=== PATIENT | male | born 1965 | race African-American/Black ===

== ENCOUNTER 2017-01-22 13:40 | Outpatient (CLI) | payer MEDICARE ==
--- NOTE | 2017-01-22 19:54 | MRI ---
MRI CERVICAL SPINE WITHOUT IV CONTRAST: Date: 01-22-17 History: Cervical radiculopathy. FINDINGS: There is minimal cerebellar atrophia. There is heterogeneity of the bone marrow. There is suggestion of endplate degenerative changes at t he C4-5 level. C2-3: No disc bulge or disc herniation. Central spinal canal and neural foramina are patent. C3-4: There is a mild broad based disc osteophyte complex present. This results in narrowing of the central spinal canal with flattening of the anterior aspect of the spinal cord. Neural foramina are patent. C4-5: There is loss of intervertebral disc height. There is broad based disc osteophyte complex with central disc protrusion. This results in severe narrowing of the central spinal canal. In addition, there is increased signal intensity seen within the spinal cord which could be related to either mi ld amount of cord edema or myelomalacia. There may be some thinning of the spinal cord in this regio n. It is difficult to determine due to the severe narrowing of the central spinal canal and severe c ompression of the spinal cord at this level. There is mild right and mild to moderate left sided murphy ral foraminal narrowing. l C5-6: There is a broad based disc bulge with a central disc protrusion. This again results in severe narrowing of the central spinal canal with significant flattening of the spinal cord. There is subt le increased T2 weight signal intensity in the spinal cord at this level as well which also could be related to myelomalacia or mild cord edema. Right neural foramen is patent, but there does appear t o be mild to moderate left sided neural foraminal narrowing. C6-7: There is mild broad based disc osteophyte complex. There is mild generalized narrowing of the central spinal canal with mild flattening aspect of the spinal cord. Neural foramina are patent. C7-T1: No disc bulge or disc herniation. Central spinal canal and neural foraminal are patent. IMPRESSION: 1. Multilevel degenerative changes with findings greatest at the C4-5 and C5-6 levels where there ar e broad based disc bulges and central disc protrusions, greater at the C4-5 level. There is severe n arrowing of the central spinal canal at these levels with severe flattening of the spinal cord. Ther e is increased T2 weighted signal intensity within the spinal cord at these levels which may be rela blossom to mild cord edema and/or myelomalacia. 2. Neural foraminal narrowing greatest at the C4-5 level. POS: [facility]
== END 2017-01-22 13:41 | disposition home or self-care (01) ==
LOC: TBSIIMAG 13:40
PROVIDERS: ATTEND Neurological Surgery
DX: M50.121 Cervical disc disorder at C4-C5 level with radiculopathy (principal); M47.812 Spondylosis without myelopathy or radiculopathy, cervical region; M48.02 Spinal stenosis, cervical region
CPT/HCPCS: 72141

== ENCOUNTER 2017-02-28 13:33 | Outpatient (CLI) | payer MEDICARE ==
[2017-02-28 14:10] LABS: Hematocrit 33.7 % (42.0-52.0); Mean Platelet Volume 7.8 fL (7.4-10.4); Red Blood Cell (RBC) Count 3.43 mill/uL (4.70-6.10); White Blood Cell (WBC) Count 5.5 thou/uL (4.8-10.8)
[2017-02-28 14:30] LABS: Anion Gap 12 mmol/L (10-20); BUN (Urea Nitrogen) 55 mg/dL (8.4-25.7); Calc. Creatinine Clearance 0 mL/min (70-130); Calcium 8.8 mg/dL (7.8-10.44); Carbon Dioxide 30 mmol/L (22-29); Chloride 103 mmol/L (98-107); Estimated GFR-MDRD 22
--- NOTE | 2017-03-04 08:44 | EKG ---
Test Reason : Blood Pressure : / mmHG Vent. Rate : 085 BPM Atrial Rate : 085 BPM P-R Int : 164 ms QRS Dur : 100 ms QT Int : 374 ms P-R-T Axes : 026 057 022 degrees QTc Int : 445 ms Normal sinus rhythm Normal ECG When compared with ECG of 20-SEP-2015 13:16, Nonspecific T wave abnormality now evident in Inferior leads Confirmed by Dinh MANRIQUE ([id number]) on 03/04/2017 8:43:56 AM Referred By: JOSE Confirmed By:Dinh MANRIQUE
== END 2017-02-28 13:34 | disposition home or self-care (01) ==
LOC: LABBT 13:33
PROVIDERS: ATTEND Neurological Surgery
DX: Z01.818 Encounter for other preprocedural examination (principal); M47.892 Other spondylosis, cervical region
CPT/HCPCS: 80048; 85027; 93005; 93010

== ENCOUNTER 2017-03-07 07:57 | Day surgery (SDC) | payer MEDICARE ==
[2017-02-28 14:25] VITALS: BMI 39.4
--- NOTE | 2017-03-06 16:24 | HP ---
HISTORY OF PRESENT ILLNESS: Mr. Morales is a 51-year-old man who presents for evaluation of mostly bilateral S1 radiculopathies. MRI from [facility] reveals severe central canal stenosis at L4-L5. Nicole mendez also presents for constellation of different upper extremity symptoms with polydermatomal radiating symptoms and numbness in his hands and he has an EMG NCV that shows unspecified polyneuropathies of both sensory and motor neurons of the upper extremities bilaterally and an MRI from [facility] reveal s severe central canal stenosis from C4-C6 with signal change in the cord at these locations and he i s here to discuss any possible recommendations going forward. PAST MEDICAL HISTORY: Significant for diabetes, gout, neuropathy, hypertension, BPH, back and neck p roblems. CURRENT MEDICATIONS: Potassium, amlodipine, gabapentin, allopurinol, glipizide, metolazone, hydrocod one, probenecid, colchicine, carvedilol, magnesium, isosorbide mononitrate, Lipitor, hydralazine, and tamsulosin. ALLERGIES: No known drug allergies. PAST SURGICAL HISTORY: None. PHYSICAL EXAMINATION: The patient is alert and oriented x3. Gait is extraordinarily slow using a wa lker. He is unable to perform rapid finger movements in either hand. He has a 3/5 rehabilitation center manager strength tiffanie aterally. Upper extremity motor exam is about 4/5 in all movements of the upper extremities, some ma y be secondary to poor effort. Lower extremities are 4+/5 in all movements. Sensory disturbance in all surfaces of the hands, volar and dorsal up to mid forearm bilaterally. Same to the feet where th ey go up to just above the ankles bilaterally. Reflexes are equal and intact bilaterally at the judy ps and patella. ASSESSMENT: Cervical myelopathy. PLAN: Dr. Britt met with the patient, reviewed imaging and ultimately advocated for C4 through C6 AC DF. He explained to the patient the risks, benefits, and alternatives to the procedure. The patient expressed understanding and would like to move forward with surgery as discussed. I do believe the patient is mentally competent and capable of making medical decisions for himself. We will move forw yan with surgery as planned.
[2017-03-07] MEDS ORDERED: CEFAZOLIN/Water 2 GM/20 ML SYRINGE ONE ×2 (08:12→15:18)
[2017-03-07] MEDS ORDERED: Albuterol Sulfate 1.25 MG/3 ML NEB ONE (08:43)
[2017-03-07] MEDS ORDERED: Albuterol Sulfate 2.5 mg/3 ml Neb ONE (08:46)
[2017-03-07] MEDS ORDERED: Thrombin 5000 UNITS/5 ML VIAL ONE (09:20)
[2017-03-07] MEDS ORDERED: Midazolam HCl 2 mg/2 ml Vial ONE (09:38)
[2017-03-07] MEDS ORDERED: Fentanyl 250 MCG/5 ML VIAL ONE (09:38)
--- NOTE | 2017-03-07 12:28 | OP ---
DATE OF PROCEDURE: 03/07/2017 SURGEON: Jarrod Britt M.D. GALLEY BOY: Ganesh Miranda PA-C. INDICATION: Prevent neurologic decline. DIAGNOSIS: Cervical spondylitic myelopathy. PROCEDURE: Anterior cervical discectomy and fusion C4-C6. ANESTHESIA: General. PROCEDURE IN DETAIL: The patient was brought to the operating room and placed under general anesthes ia. He was placed on the table in a supine position. A transverse incision was planned over the lat eral aspect of the neck on the right. After prepping and draping and after an appropriate operative pause, the incision was created. The underlying platysma muscle was identified and incised. A blunt tissue plane anterior to the sternocleidomastoid muscle was used to gain access to the prevertebral space. Self-retaining retractors were placed in the wound for optimal exposure. After confirming th e appropriate level, an annulotomy was performed in the C4-5 disk space. All disk material as well a s anterior and posterior osteophytes were removed under slight distraction. After complete decompres andrey of that segment a 7 mm lordotic PEEK cage packed with allograft and autograft material was place d within the interbody space. We then redirected our attention to the level above at C5-6 where an a nnulotomy was performed. All disk material as well as anterior and posterior osteophytes were remove d. After complete decompression, a 6 mm lordotic PEEK cage packed with allograft and autograft mater ial was placed. An anterior cervical plate was then fashioned to the front of the spine and secured with screws. Midline and lateral structures were then inspected and found to be free from significan t trauma. The wound was irrigated. Hemostasis was maintained throughout. The wound was then closed in anatomic layers and a pressure dressing was applied. There were no known procedural complication s.
[2017-03-07] MEDS ORDERED: Fentanyl 100 MCG/2 ML VIAL ONE (12:47)
[2017-03-07] MEDS ORDERED: Tamsulosin HCl 0.4 MG CAP ONE (13:07)
[2017-03-07] MEDS ORDERED: Acetaminophen/Codeine 30-300mg Tablet ONE (13:55)
[2017-03-07] MEDS ORDERED: Dexamethasone 20 MG/5 ML VIAL ONE (15:31)
[2017-03-07] MEDS ORDERED: PHENYLEPHRINE-NS 100 MCG/ML 10 ML SYRINGE ONE (15:31)
[2017-03-07] MEDS ORDERED: ePHEDrine/0.9% NaCl/PF SYRINGE 50 mg/10 ml ONE (15:31)
[2017-03-07] MEDS ORDERED: Propofol 200 MG/20 ML VIAL ONE (15:31)
[2017-03-07] MEDS ORDERED: Ondansetron HCl/PF 4 MG/2 ML Vial ONE (15:31)
[2017-03-07] MEDS ORDERED: Glycopyrrolate 0.2 MG/ML 5 ML SYRINGE ONE (15:31)
[2017-03-07] MEDS ORDERED: Lidocaine 1% PF 5 ML VIAL ONE (15:31)
== END 2017-03-07 15:47 | disposition home or self-care (01) ==
LOC: SDC 07:57
PROVIDERS: ATTEND Neurological Surgery
PROC: 0RG20A0 Fusion of 2 or more Cervical Vertebral Joints with Interbody Fusion Device, Anterior Approach, Anterior Column, Open Approach (ICD-10-PCS; principal; 2017-03-07)
PROC: 0RB30ZZ Excision of Cervical Vertebral Disc, Open Approach (ICD-10-PCS; 2017-03-07)
DX: M47.12 Other spondylosis with myelopathy, cervical region (principal); M25.78 Osteophyte, vertebrae; M10.9 Gout, unspecified; E11.40 Type 2 diabetes mellitus with diabetic neuropathy, unspecified; I10 Essential (primary) hypertension; N40.0 Benign prostatic hyperplasia without lower urinary tract symptoms; Z79.84 Long term (current) use of oral hypoglycemic drugs; Z79.82 Long term (current) use of aspirin; Z79.899 Other long term (current) drug therapy; Z98.890 Other specified postprocedural states
CPT/HCPCS: 20930; 20936; 22551; 22552; 22845; 22853 ×2; 76001; 96374; C1713; J1100; J2001; J2250; J2405; J2704; J3010; J7611

== ENCOUNTER 2017-04-30 19:48 | Emergency (ER) | payer MEDICARE, SELFPAY ==
[2017-04-30] MEDS ORDERED: Ketorolac Tromethamine 30 MG/ML VIAL ONE (22:05)
[2017-04-30] MEDS ORDERED: predniSONE 20 MG TAB ONE ×2 (22:05→22:06)
[2017-04-30] MEDS ORDERED: Colchicine 0.6 MG TAB ONE (22:05)
== END 2017-04-30 23:13 | disposition home or self-care (01) ==
LOC: ERS 19:48
DX: M10.9 Gout, unspecified (principal); I25.10 Atherosclerotic heart disease of native coronary artery without angina pectoris; E11.22 Type 2 diabetes mellitus with diabetic chronic kidney disease; I13.2 Hypertensive heart and chronic kidney disease with heart failure and with stage 5 chronic kidney disease, or end stage renal disease; I50.9 Heart failure, unspecified; N18.6 End stage renal disease; E78.5 Hyperlipidemia, unspecified; J44.9 Chronic obstructive pulmonary disease, unspecified; Z87.891 Personal history of nicotine dependence
CPT/HCPCS: 96372; J1885; J7506

== ENCOUNTER 2017-05-19 22:51 | Emergency (ER) | payer MEDICARE ==
--- NOTE | 2017-05-19 23:36 | ULT ---
RIGHT LOWER EXTREMITY VENOUS DUPLEX EXAM: 05/19/17 HISTORY: Right leg pain and swelling. Real time color doppler evaluation of the right lower extremity was performed from calf. This include s evaluation of the common femoral, superficial and profunda femoral, saphenous, popliteal, and trifu rcation veins. This shows a patent deep venous system. There is normal compressibility and augmentat ion. There is no evidence of DVT. IMPRESSION: No evidence of DVT of the right lower extremity. POS: [facility]
== END 2017-05-20 00:15 | disposition home or self-care (01) ==
LOC: ERS 22:51
DX: S80.11XA Contusion of right lower leg, initial encounter (principal); I25.10 Atherosclerotic heart disease of native coronary artery without angina pectoris; E11.22 Type 2 diabetes mellitus with diabetic chronic kidney disease; I13.2 Hypertensive heart and chronic kidney disease with heart failure and with stage 5 chronic kidney disease, or end stage renal disease; I50.9 Heart failure, unspecified; N18.6 End stage renal disease; E78.5 Hyperlipidemia, unspecified; Z87.891 Personal history of nicotine dependence; Z79.899 Other long term (current) drug therapy; Z79.84 Long term (current) use of oral hypoglycemic drugs; Z79.82 Long term (current) use of aspirin; W22.03XA Walked into furniture, initial encounter; M79.604 Pain in right leg

== ENCOUNTER 2017-12-05 13:18 | Outpatient (CLI) | payer MEDICARE ==
--- NOTE | 2017-12-05 16:05 | MRI ---
MRI OF LUMBAR SPINE WITHOUT CONTRAST: Date: 12-05-17 Comparison: 08-03-16 History: Neck and back surgery in the past, chronic neck pain and back pain. Technique: Multiplanar, multisequence MR imaging of the lumbar spine is provided without contrast med ia. FINDINGS: Body habitus and motion artifact limits detailed assessment on provided STIR imaging. The STIR imagin g demonstrates no focal area of suspicious osseous marrow edema. Assuming five lumbar type vertebral bodies, conus medullaris terminates in the T12-L1 region. The patient appears status post lumbar spine surgery at the L4-5 level with probable bilateral nuria ctomy. There is increased STIR signal within the posterior paraspinal soft tissues at this level. Thi s surgery has occurred since the prior 08-03-16 examination. Post-surgical changes are not optimally a ssessed without contrast media. T12-L1: Intervertebral disc height and signal intensity appears within normal limits with no signific ant central canal or neural foraminal stenosis. L1-2: Bilateral facet hypertrophy. Intervertebral disc height and signal intensity is within normal l imits. No significant central canal or neural foraminal stenosis. L2-3: There is mild disc space narrowing. There is mild disc bulge. There is bilateral facet hypertro phy. There is mild central canal stenosis and mild bilateral neural foraminal stenosis, left greater than right. L3-4: Mild bilateral facet hypertrophy. Intervertebral disc height and signal intensity appears withi n normal limits. Mild central canal stenosis, mild bilateral neural foraminal stenosis, left greater than right. L4-5: There is minimal anterolisthesis of L4 on L5 measuring in the 3-4 mm range. There is disc space narrowing, disc desiccation, and mild disc bulge. There is bilateral prominent facet hypertrophy. Th ere is moderate central canal stenosis. There is moderate bilateral neural foraminal stenosis, right greater than left. L5-S1: Mild disc bulge with mild central canal stenosis. Bilateral facet hypertrophy, left greater th an right. Mild bilateral neural foraminal stenosis. Please note that detailed assessment of the axial T2 weighted imaging is limited on the basis of body habitus. Imaged retroperitoneal structures demonstrate no acute findings. The left kidney is nonvisualized. IMPRESSION: 1. Multilevel post-operative/degenerative change within the lumbar spine as described above. Findings are most significant at the L4-5 level. The lack of contrast media limits assessment of the post-ope rative spine. POS: [facility]
--- NOTE | 2017-12-05 16:16 | MRI ---
MRI OF THE CERVICAL SPINE 12/05/17 COMPARISON: 08/03/16 HISTORY: Chronic pain with bilateral upper extremity radiculopathy and prior cervical spine surgery. TECHNIQUE: Multiplanar and multisequence MR imaging of the cervical spine is provided without contrast. FINDINGS: There has been interval anterior discectomy and fusion at the C4-5/C5-6 level. There is associated coburn rdware artifact. Sagittal STIR imaging demonstrates no focal area of osseous marrow edema. There is no significant ant erolisthesis or retrolisthesis noted. C2-3: Mild disc space narrowing and disc desiccation. Mild bilateral facet hypertrophy with uncoverte bral osteophyte formation. No significant central canal or neural foraminal stenosis. C3-4: Disc space narrowing and disc desiccation with mild disc bulge and mild central canal stenosis. Mild bilateral facet hypertrophy, and uncovertebral osteophyte formation with mild bilateral neural foraminal stenosis. C4-5: There is disc desiccation and disc space narrowing. There is bilateral facet and uncovertebral osteophyte formation. There is mild central canal stenosis, improved since prior surgery. There is bi lateral facet and uncovertebral osteophyte formation. Mild to moderate bilateral neural foraminal osmany nosis suspected. C5-6: Disc space narrowing and disc desiccation noted with mild central canal stenosis. Bilateral fac et and uncovertebral osteophyte formation with mild/moderate bilateral neural foraminal stenosis, lef t greater than right. C6-7: Disc desiccation and mild disc bulge with mild central canal stenosis. Facet and uncovertebral osteophyte formation noted bilaterally with mild bilateral neural foraminal stenosis. C7-T1: No significant central canal or neural foraminal stenosis. No prevertebral soft tissue abnormality noted. There is a focal area of abnormal increased T2 signal within the cervical cord at C4-5 as seen on the prior examination, evidence of stable myelomalacia. No additional focal signal abnormality within th e cervical cord. IMPRESSION: Postoperative and degenerative changes noted within the cervical spine as detailed above. Given posto perative hardware, evaluation at C4-5 and C5-6 is slightly limited. Cervical spine CT myelogram may b e beneficial as clinically warranted. POS: [facility]
== END 2017-12-05 13:19 | disposition home or self-care (01) ==
LOC: SCSMRI 13:18
PROVIDERS: ATTEND Family Medicine
DX: M47.26 Other spondylosis with radiculopathy, lumbar region (principal); M47.22 Other spondylosis with radiculopathy, cervical region; Z98.890 Other specified postprocedural states
CPT/HCPCS: 72141; 72148

== ENCOUNTER 2018-02-15 18:01 | Inpatient (IN) | payer MEDICARE ==
[2018-02-15 18:28] LABS: #Basophils 0.1 thou/uL (0.0-0.2); #Eosinphils 0.2 thou/uL (0.0-0.7); #Lymphocytes 1.7 thou/uL (1.20-3.40); #Monocytes 0.6 thou/uL (0.11-0.59); #Neutrophils 3.3 thou/uL (1.40-6.50); %Basophils 1.3 % (0.0-1.0); %Eosinophils 3.6 % (0.0-10.0); %Lymphocytes 28.4 % (21.0-51.0); %Monocytes 10.7 % (0.0-10.0); Hemoglobin 9.6 g/dL (14.0-18.0); Mean Corpuscular HGB CONC 31.8 g/dL (32.0-36.0); Mean Corpuscular Hemoglobin 31.3 pg (27.0-31.0); Mean Corpuscular Volume 98.4 fL (78.0-98.0); Mean Platelet Volume 8.5 fL (7.4-10.4); Platelet Count 221 thou/uL (130-400); RBC Distribution Width 14.3 % (11.5-14.5); Red Blood Cell (RBC) Count 3.08 mill/uL (4.70-6.10); White Blood Cell (WBC) Count 5.9 thou/uL (4.8-10.8)
[2018-02-15 18:34] LABS: Prothrombin Time 12.7 SEC (12.0-14.7)
[2018-02-15 18:53] LABS: Troponin I 0.028 ng/mL (< 0.028)
[2018-02-15 18:54] LABS: CKMB 17.3 ng/mL (0-6.6)
--- NOTE | 2018-02-15 19:00 | RAD ---
CHEST ONE VIEW: 02/15/18 HISTORY: 52-year-old male with history of chest pain and shortness of breath. Cardiomegaly with mild bilateral vascular congestion. No confluent pneumonia, overt edema, or pleural effusion. IMPRESSION: Cardiomegaly with mild vascular congestion showing little change from prior exam, 01/01/16. POS: [facility]
[2018-02-15 19:04] LABS: ALT (SGPT) 49 U/L (8-55); AST (SGOT) 54 U/L (5-34); Albumin 3.4 g/dL (3.5-5.0); Alkaline Phosphatase 95 U/L (40-150); Anion Gap 16 mmol/L (10-20); BUN (Urea Nitrogen) 60 mg/dL (8.4-25.7); Bilirubin, Total 0.4 mg/dL (0.2-1.2); CK (CPK) 3286 U/L (30-200); Calc. Creatinine Clearance 0 mL/min (70-130); Calcium 7.9 mg/dL (7.8-10.44); Carbon Dioxide 27 mmol/L (22-29); Chloride 102 mmol/L (98-107); Estimated GFR-MDRD 13; Globulin 3.1 g/dL (2.4-3.5); Glucose 207 mg/dL (70-105); Lipase 32 U/L (8-78); Protein, Total 6.5 g/dL (6.0-8.3); Sodium 141 mmol/L (136-145)
[2018-02-15] MEDS ORDERED: Furosemide 40 MG/4 ML VIAL ONE (20:07)
[2018-02-15] MEDS ORDERED: Morphine 2 MG/ML SYRINGE ONE (20:07)
[2018-02-15] MEDS ORDERED: Furosemide 20 MG/2 ML VIAL ONE (20:07)
[2018-02-15 21:46] LABS: Troponin I 0.028 ng/mL (< 0.028)
[2018-02-15] MEDS ORDERED: Ondansetron PF 4 MG/2 ML Vial IVP PRN (22:26)
[2018-02-15] MEDS ORDERED: Ondansetron ODT 4 MG TAB SL PRN (22:26)
[2018-02-15 22:43] VITALS: BMI 46.5
[2018-02-16] MEDS ORDERED: Acetaminophen 650 MG Suppository PR PRN (04:56)
[2018-02-16] MEDS ORDERED: Ondansetron PF 4 MG/2 ML Vial IVP PRN (04:56)
[2018-02-16] MEDS ORDERED: Acetaminophen 325 MG TAB PO PRN (04:56)
[2018-02-16] MEDS ORDERED: Senokot S 8.6-50 MG TAB PO PRN (04:56)
[2018-02-16] MEDS ORDERED: Fluticasone Propionate Nasal Spray 16 gm Bottle NASAL PRN (05:07)
[2018-02-16] MEDS ORDERED: Albuterol Sulfate 2.5 mg/3 ml Neb NEB PRN (05:07)
[2018-02-16] MEDS ORDERED: Ipratropium Bromide 2.5 ml Neb NEB PRN (05:07)
[2018-02-16] MEDS ORDERED: Ipratropium Bromide 0.06% Nasal Inhaler 15ml EA NARE PRN (05:15)
--- NOTE | 2018-02-16 06:13 | HP ---
PRIMARY CARE PROVIDER: Verona Coy MD CHIEF COMPLAINT: Shortness of breath. HISTORY OF PRESENT ILLNESS: Mr. Morales is a pleasant 52-year-old gentleman who was seen at [facility] on 02/16/2018. He reports that he has been having progressively worsening shortness of breath over the last several days. He also reported bilateral lower extremity swelling. He reports taking 80 mg of Lasix and 100 mg of torsemide daily. He reports that the shortness of breath and lower extremity edema are ongoin g. He was sent to the emergency room by his allergist immunologist, Dr. Abreu for evaluation. He denies any chest pain. He denies any fevers or chills. He denies any nausea or vomiting. REVIEW OF SYSTEMS: All other systems reviewed and found to be negative. PAST MEDICAL HISTORY: Coronary artery disease, congestive heart failure, diabetes mellitus type 2, e nd-stage renal disease, dyslipidemia, hypertension, chronic obstructive pulmonary disease, and chroni c back pain. PAST SURGICAL HISTORY: Neck surgery in 02/2017. SOCIAL HISTORY: Patient denies tobacco use, alcohol use or recreational drug use. FAMILY HISTORY: Significant for several family members with coronary artery disease, and chronic kid jovan disease. ALLERGIES: No known drug allergies. CURRENT MEDICATIONS: Ipratropium nebulizers as needed, allopurinol 100 mg daily, Norvasc 10 mg daily , aspirin 325 mg daily, Lipitor 40 mg at bedtime, Coreg 25 mg 2 times a day, vitamin D3 5000 units da angela, Flonase nasal spray as needed, Lasix 80 mg daily, gabapentin 600 mg daily, hydralazine 100 mg 3 times a day, [place] p.r.n., Atrovent nasal spray, Imdur 60 mg 3 times a day, magnesium 250 mg daily, m ultivitamins 1 tablet daily, probenecid/colchicine 0.5/500 mg 2 times a day, stool softener 1 tablet 2 times a day, torsemide 100 mg daily, Symbicort 160/4.5 two puffs 2 times a day and Flomax 0.4 mg at bedtime. PHYSICAL EXAMINATION: GENERAL: Mr. Morales is awake and alert, not in acute distress. VITAL SIGNS: Blood pressure is 141/78, pulse 74, respiratory rate 16, and oxygen saturation 95% on r oom air. He is afebrile. He is morbidly obese, with a BMI of 46.6. EYES: No scleral icterus. No conjunctival pallor. ENT: Moist mucosal membranes, no oropharyngeal erythema or exudates. NECK: Supple, nontender, trachea is midline. RESPIRATORY: Accessory muscles of breathing are not active. Chest wall movements are symmetric bila terally. LUNGS: Clear to auscultation without wheeze, rhonchi or crepitations. CARDIOVASCULAR: S1 and S2 are heard, regular. Peripheral pulses palpable. No carotid bruit, no per icardial rub. ABDOMEN: Soft, nontender, bowel sounds are heard, no hepatomegaly, no splenomegaly. NEUROLOGIC: Cranial nerves II-XII intact. Deep tendon reflexes are 2+. MUSCULOSKELETAL: Power is 5/5 in all 4 extremities. SKIN: No rashes or subcutaneous nodules. LYMPHATIC: No cervical lymphadenopathy. PSYCHIATRIC: Normal mood, normal affect, patient is oriented to person, place, and time. LABORATORY DATA: Mr. Morales's labs and investigations were reviewed. I reviewed his electrocardio gram, which shows normal sinus rhythm, no ST changes to suggest an acute coronary syndrome. I also r eviewed his chest x-ray, which shows mild pulmonary vascular congestion. There are no pulmonary infi ltrates. He has normal white count, macrocytic anemia with hemoglobin 9.6, normal platelet count. I NR 1.0, normal sodium, normal potassium, elevated blood urea nitrogen of 60, elevated creatinine of 5 .51, last known creatinine 5.53 on 02/13/2018 and 4.55 on 01/09/2018, normal calcium, mildly elevated AST of 54, elevated CK level of 3286, normal ALT, normal alkaline phosphatase, normal total bilirubi n, indeterminate troponin I of 0.030, mildly elevated BNP of 423, decreased albumin of 3.4 and normal lipase. ASSESSMENT AND PLAN: Mr. Morales is a pleasant 52-year-old gentleman who was seen at [facility] on 02/16/2018. His problem list includes: 1. End-stage renal disease: Mr. Morales is presenting with end-stage renal disease causing symptom s of volume overload including shortness of breath and lower extremity edema. He will be admitted to the hospital for further management. Plan is to start dialysis. General Surgery Service has been c onsulted. 2. Diabetes mellitus type 2: We will start patient on Accu-Cheks and insulin sliding scale. 3. Benign prostate hypertrophy: We will continue tamsulosin. 4. Dyslipidemia: We will continue statin. Many thanks for allowing me to participate in your patient's care. Please feel free to contact me wi th any questions or concerns. LEVEL OF RISK: High. LEVEL OF COMPLEXITY: High.
[2018-02-16] MEDS: Mometasone/Formoterol 120 PUFF INHALER INH SCH ×2 (06:19→18:59)
[2018-02-16] MEDS ORDERED: Furosemide 100 MG/10 ML VIAL SLOW IVP SCH (10:30)
[2018-02-16] MEDS: HYDROcodone/Acetaminophen 10/325 mg Tablet PO PRN ×2 (10:52→20:51)
[2018-02-16] MEDS: Senokot S 8.6-50 MG TAB PO SCH ×2 (10:52→20:50)
[2018-02-16] MEDS: Gabapentin 300 MG CAP PO SCH (10:53)
[2018-02-16] MEDS: hydrALAZINE 25 MG TAB PO SCH ×3 (10:53→20:50)
[2018-02-16] MEDS: Magnesium Oxide 250 MG TAB PO SCH (10:53)
[2018-02-16] MEDS: Amlodipine 10 MG TAB PO SCH (10:54)
[2018-02-16] MEDS: Multivitamin W/ Minerals 1 TAB PO SCH (10:54)
[2018-02-16] MEDS: Aspirin 325 mg Enteric Coated Tablet PO SCH (10:54)
[2018-02-16] MEDS: Carvedilol 25 MG TAB PO SCH ×2 (10:54→20:52)
[2018-02-16] MEDS: Allopurinol 100 MG TAB PO SCH (10:55)
[2018-02-16] MEDS: Torsemide 100 MG TAB PO SCH (10:57)
[2018-02-16] MEDS: Furosemide 80 MG TAB PO SCH (10:58)
--- NOTE | 2018-02-16 11:36 | CON ---
DATE OF CONSULTATION: 02/16/2018 NEPHROLOGY CONSULTATION REASON FOR CONSULTATION: Elevated creatinine and generalized edema. HISTORY OF PRESENT ILLNESS: This is a 52-year-old gentleman with a past medical history significant for stage 4 chronic kidney disease who presented to the hospital after his creatinine was rising. Hi s creatinine was in 4s and is 5.5 with generalized edema and at least 20 pounds of weight gain. The patient has dyspnea on minimal exertion. The patient was treated with Lasix and Zaroxolyn without an y improvement. PAST MEDICAL HISTORY: Significant for hypertension, congestive heart failure, history of diabetes me llitus, obesity, COPD, neck surgery. FAMILY HISTORY: Negative for ESRD. ALLERGIES: Reviewed. HOME MEDICATIONS: List reviewed. REVIEW OF SYSTEMS: A 14-point review of systems was performed and was negative except for positives noted above. GENERAL: Weakness- HEAD: Headache- NECK: No swelling or lumps. NOSE: No epistaxis or discharge. EYES: No diplopia or pain. RESPIRATORY: Dyspnea- CARDIOVASCULAR: Chest pain- GASTROINTESTINAL: Nausea- /CANS VACUUM TESTER: Hematuria- MUSCULOSKELETAL: No joint pain. NEUROPSYCHIATIC SYSTEMS: No suicidal ideation. No ideation. SKIN: Denies any rash or ulcer. CONSTITUTIONAL: No fever or chills. PHYSICAL EXAMINATION: GENERAL: Patient is awake, alert. VITAL SIGNS: Pulse 85, breathing 16, blood pressure 162/82. HEAD/NECK: Normocephalic. Atraumatic. EYES: EOMI. No deformity. EARS: Clear. No ulcers. NOSE: Intact. No lesions. MOUTH: Clear. No discharge. THROAT: Clear. No exudate. LUNGS: Clear. No crackles. CARDIAC: S1, S2. No rub. ABDOMEN: Benign. BS+. GENITALIA/RECTUM: Gimenez absent. BACK/EXTREMITIES: Edema 0+ Ulcer- NEUROLOGICAL: Alert and motor intact. SKIN: Rash- Bruise- LYMPHATICS: Edema 4+ Ulcer- LABORATORY DATA: Show hemoglobin is 9.6. ASSESSMENT AND PLAN: 1. Stage 6 chronic kidney disease. We will plan hemodialysis after catheter placement. 2. Edema. We will plan dialysis. 3. Anemia, stable, start Epogen. 4. Hypertension, plan ultrafiltration. 5. Medications based on glomerular filtration rate are appropriate.
--- NOTE | 2018-02-16 11:47 | PDOC.PN ---
- Subjective Encounter Start Date: 02/16/18 Encounter Start Time: 09:00 Subjective: no sob or chest pain -: is amb in room - Objective MAR Reviewed: Yes Vital Signs & Weight: Vital Signs (12 hours) Temp Pulse Resp BP BP Pulse Ox 02/16/18 10:54 85 02/16/18 10:53 85 168/82 H 02/16/18 07:42 97.5 F L 85 16 168/82 H 94 L 02/16/18 06:19 84 24 H 96 02/16/18 03:46 97.7 F 74 16 141/78 H 95 Weight Weight 263 lb I&O: 02/15/18 02/16/18 02/17/18 06:59 06:59 06:59 Intake Total 240 Output Total 850 Balance -610 Result Diagrams: 02/15/18 18:14 02/15/18 18:14 Additional Labs: Accuchecks 02/16/18 05:39 POC Glucose 88 Phys Exam - Physical Examination HEENT: PERRLA, moist MMs Neck: no JVD, supple Respiratory: no wheezing, no rales Cardiovascular: RRR, no significant murmur Gastrointestinal: soft, non-tender, positive bowel sounds Musculoskeletal: no edema, pulses present Neurological: non-focal, moves all 4 limbs Psychiatric: normal affect, A&O x 3 Dx/Plan (1) ESRD (end stage renal disease) Code(s): N18.6 - END STAGE RENAL DISEASE Status: Acute (2) Cardiomyopathy Code(s): I42.9 - CARDIOMYOPATHY, UNSPECIFIED Status: Chronic (3) Chronic obstructive lung disease Code(s): J44.9 - CHRONIC OBSTRUCTIVE PULMONARY DISEASE, UNSPECIFIED Status: Chronic (4) Diabetes mellitus type 2 Code(s): E11.9 - TYPE 2 DIABETES MELLITUS WITHOUT COMPLICATIONS Status: Chronic (5) Diastolic heart failure Code(s): I50.30 - UNSPECIFIED DIASTOLIC (CONGESTIVE) HEART FAILURE Status: Chronic Comment: (6) Dyslipidemia Code(s): E78.5 - HYPERLIPIDEMIA, UNSPECIFIED Status: Chronic (7) Morbid obesity Code(s): E66.01 - MORBID (SEVERE) OBESITY DUE TO EXCESS CALORIES Status: Chronic - Plan will HD access on Sunday by -: will start HD during this admission, d/w -: continue current meds including lasix and torsamide -: on coreg, hydralazine, norvasc, asp and lipitor -: to amb as tolerated * . Review of Systems - Medications/Allergies Allergies/Adverse Reactions: Allergies Allergy/AdvReac Type Severity Reaction Status Date / Time No Known Allergies Allergy Verified 02/15/18 23:09 Medications: Current Medications Acetaminophen (Tylenol) 650 mg PO Q4H PRN PRN Reason: Headache/Fever/Mild Pain (1-3) Acetaminophen (Tylenol) 650 mg [place] Q4H PRN PRN Reason: Headache/Fever/Mild Pain (1-3) Hydrocodone Bitart/Acetaminophen ([place] 10/325) 1 tab PO TID PRN PRN Reason: Pain > 3 Last Admin: 02/16/18 10:52 Dose: 1 tab Albuterol Sulfate (Ventolin) 7.5 mg NEB Q4H PRN PRN Reason: SOB &/or Wheezing Allopurinol (Zyloprim) 100 mg PO DAILY [facility] Last Admin: 02/16/18 10:55 Dose: 100 mg Amlodipine Besylate (Norvasc) 10 mg PO DAILY [facility] Last Admin: 02/16/18 10:54 Dose: 10 mg Aspirin (Ecotrin) 325 mg PO DAILY [facility] Last Admin: 02/16/18 10:54 Dose: 325 mg Atorvastatin Calcium (Lipitor) 40 mg PO [facility] Carvedilol (Coreg) 25 mg PO BID [facility] Last Admin: 02/16/18 10:54 Dose: 25 mg Cholecalciferol (Vitamin D3) 5,000 units PO DAILY [facility] Last Admin: 02/16/18 10:52 Dose: 5,000 units Fluticasone Propionate (Flonase Nasal [place]) 0 gm NASAL DAILY PRN PRN Reason: Allergies Furosemide (Lasix) 80 mg PO DAILY [facility] Last Admin: 02/16/18 10:58 Dose: Not Given Furosemide (Lasix) 60 mg SLOW IVP NOW [facility] Stop: 02/16/18 12:30 Last Admin: 02/16/18 10:53 Dose: 60 mg Gabapentin (Neurontin) 600 mg PO DAILY [facility] Last Admin: 02/16/18 10:53 Dose: 600 mg Hydralazine HCl (Apresoline) 100 mg PO TID [facility] Last Admin: 02/16/18 10:53 Dose: 100 mg Ipratropium [place] (Atrovent 0.06% Nasal Inhaler) 0 ml EA NARE ASDIR [facility] Ipratropium [place] (Atrovent) 2.5 ml NEB Q8H PRN PRN Reason: SOB &/or Wheezing Iron/Minerals/Multivitamins (Theragran M) 1 tab PO DAILY [facility] Last Admin: 02/16/18 10:54 Dose: 1 tab Isosorbide Mononitrate (Imdur) 60 mg PO TID [facility] Last Admin: 02/16/18 10:54 Dose: 60 mg Magnesium Oxide (Magnesium Oxide) 250 mg PO DAILY [facility] Last Admin: 02/16/18 10:53 Dose: 250 mg Mometasone Furoate/Formoterol Fumar (Dulera 200 Mcg/5 Mcg Inhaler) 2 puff INH BID-RT [facility] Last Admin: 02/16/18 06:19 Dose: 2 puff Ondansetron HCl (Zofran) 4 mg IVP Q6H PRN PRN Reason: Nausea/Vomiting Probenecid/Colchicine 500mg/0. 5mg Tablet 0 each PO BID [facility] Senna/Docusate Sodium (Senokot S) 2 tab PO BID PRN PRN Reason: Constipation Senna/Docusate Sodium (Senokot S) 1 tab PO BID [facility] Last Admin: 02/16/18 10:52 Dose: 1 tab Tamsulosin HCl (Flomax) 0.4 mg PO HS [facility] Torsemide (Demadex) 100 mg PO DAILY [facility] Last Admin: 02/16/18 10:57 Dose: 100 mg
--- NOTE | 2018-02-16 13:03 | ULT ---
ULTRASOUND VESSEL MAPPING DIALYSIS ACCESSS: Date: 02/16/18 HISTORY: Fistula Placement. COMPARISON: None. TECHNIQUE: Real-time Poole scale, color Doppler, and spectral analysis of bilateral upper extremity venous and ar terial systems performed. FINDINGS: The imaged vessels are patent. RIGHT UPPER EXTREMITY BRACHIAL ARTERY: 5.2 mm RADIAL ARTERY: 3.3 mm ULNAR ARTERY: 3.0 mm CEPHALIC VEIN Proximal Arm: 4.3 mm Mid Arm: 3.8 mm Distal Arm: 4.8 mm Antecubital Fossa: 7.2 mm Proximal Forearm: 3.1 mm Mid Forearm: 2.4 mm Distal Forearm: 2.8 mm BASILIC VEIN Proximal Arm: 4.0 mm Mid Arm: 2.4 mm Distal Arm: 2.5 mm Antecubital Fossa: 2.6 mm Proximal Forearm: 1.2 mm Mid Forearm: 0.8 mm Distal Forearm: 1.3 mm LEFT UPPER EXTREMITY BRACHIAL ARTERY: 5.6 mm RADIAL ARTERY: 4.0 mm ULNAR ARTERY: 3.0 mm CEPHALIC VEIN Proximal Arm: 5.0 mm Mid Arm: 3.3 mm Distal Arm: 4.3 mm Antecubital Fossa: 6.9 mm Proximal Forearm: 2.5 mm Mid Forearm: 3.7 mm Distal Forearm: 1.5 mm BASILIC VEIN Proximal Arm: 4.1 mm Mid Arm: 4.3 mm Distal Arm: 3.0 mm Antecubital Fossa: 2.8 mm Proximal Forearm: 0.8 mm Mid Forearm: 1.0 mm Distal Forearm: 0.8 mm IMPRESSION: Vascular size as above. POS: [facility]
[2018-02-16 14:51] LABS: HBSAB Concentration 0.84 mIU/mL; HBSAg Index 0.18 S/CO (0-0.99); Hep B Surf AB Non-Reactive (NonReactive); Hep B Surf Ag Non-Reactive S/CO (NonReactive)
[2018-02-16 16:07] LABS: Hep B Core Total Index 4.75 S/CO (0-0.79)
[2018-02-16 16:12] LABS: Hep B Core Total Ab Reactive (NonReactive)
[2018-02-16 16:14] LABS: Hep C IgG Ab Reflex HepC Qnt (NonReactive)
[2018-02-16] MEDS: Tamsulosin HCl 0.4 MG CAP PO SCH (20:51)
[2018-02-16] MEDS: Atorvastatin Calcium 40 MG TAB PO SCH (20:51)
[2018-02-16] MEDS: PROBENECID PO SCH (20:53)
[2018-02-16] MEDS: COLCHICINE PO SCH (20:53)
[2018-02-17 04:19] LABS: #Basophils 0.1 thou/uL (0.0-0.2); #Eosinphils 0.2 thou/uL (0.0-0.7); #Lymphocytes 1.8 thou/uL (1.20-3.40); #Monocytes 0.5 thou/uL (0.11-0.59); #Neutrophils 2.1 thou/uL (1.40-6.50); %Basophils 1.7 % (0.0-1.0); %Lymphocytes 37.8 % (21.0-51.0); %Monocytes 10.8 % (0.0-10.0); %Neutrophils 45.7 % (42.0-75.0); Hemoglobin 8.2 g/dL (14.0-18.0); Mean Corpuscular HGB CONC 31.1 g/dL (32.0-36.0); Mean Corpuscular Volume 99.7 fL (78.0-98.0); Mean Platelet Volume 8.3 fL (7.4-10.4); Platelet Count 200 thou/uL (130-400); RBC Distribution Width 14.2 % (11.5-14.5); Red Blood Cell (RBC) Count 2.64 mill/uL (4.70-6.10); White Blood Cell (WBC) Count 4.7 thou/uL (4.8-10.8)
[2018-02-17 04:39] LABS: Anion Gap 13 mmol/L (10-20); BUN (Urea Nitrogen) 58 mg/dL (8.4-25.7); Calc. Creatinine Clearance 27 mL/min (70-130); Calcium 7.7 mg/dL (7.8-10.44); Carbon Dioxide 26 mmol/L (22-29); Chloride 105 mmol/L (98-107); Estimated GFR-MDRD 13; Glucose 97 mg/dL (70-105); Potassium 3.8 mmol/L (3.5-5.1); Sodium 140 mmol/L (136-145)
[2018-02-17] MEDS: Mometasone/Formoterol 120 PUFF INHALER INH SCH ×2 (06:55→20:04)
[2018-02-17] MEDS: Allopurinol 100 MG TAB PO SCH (08:23)
[2018-02-17] MEDS: Magnesium Oxide 250 MG TAB PO SCH (08:23)
[2018-02-17] MEDS: Furosemide 80 MG TAB PO SCH (08:24)
[2018-02-17] MEDS: hydrALAZINE 25 MG TAB PO SCH ×3 (08:24→20:48)
[2018-02-17] MEDS: HYDROcodone/Acetaminophen 10/325 mg Tablet PO PRN ×2 (08:25→15:51)
[2018-02-17] MEDS: Gabapentin 300 MG CAP PO SCH (08:27)
[2018-02-17] MEDS: Multivitamin W/ Minerals 1 TAB PO SCH (08:27)
[2018-02-17] MEDS: Aspirin 325 mg Enteric Coated Tablet PO SCH (08:27)
[2018-02-17] MEDS: Carvedilol 25 MG TAB PO SCH ×2 (08:27→20:48)
[2018-02-17] MEDS: PROBENECID PO SCH ×2 (08:28→20:49)
[2018-02-17] MEDS: Senokot S 8.6-50 MG TAB PO SCH ×2 (08:28→20:50)
[2018-02-17] MEDS: Amlodipine 10 MG TAB PO SCH (08:28)
[2018-02-17] MEDS: COLCHICINE PO SCH ×2 (08:28→20:49)
[2018-02-17] MEDS: Torsemide 100 MG TAB PO SCH (08:31)
--- NOTE | 2018-02-17 09:57 | PDOC.PN ---
- Subjective Encounter Start Date: 02/17/18 Encounter Start Time: 09:25 Subjective: sob better, is able to amb in room -: no chest pain or palp - Objective MAR Reviewed: Yes Vital Signs & Weight: Vital Signs (12 hours) Temp Pulse Resp BP BP Pulse Ox 02/17/18 08:28 84 140/67 02/17/18 08:24 84 140/67 02/17/18 08:00 98.4 F 84 16 140/67 95 02/17/18 04:00 97.4 F L 82 18 139/72 98 02/17/18 00:00 98.0 F 86 18 170/77 H 97 Weight Weight 263 lb I&O: 02/16/18 02/17/18 02/18/18 06:59 06:59 06:59 Intake Total 240 750 Output Total 850 950 100 Balance -610 -200 -100 Result Diagrams: 02/17/18 04:05 02/17/18 04:05 Additional Labs: Accuchecks 02/16/18 02/16/18 16:56 10:59 POC Glucose 125 H 100 Phys Exam - Physical Examination HEENT: PERRLA, moist MMs Neck: no JVD, supple Respiratory: no wheezing, no rales Cardiovascular: RRR, no significant murmur Gastrointestinal: soft, non-tender, positive bowel sounds Musculoskeletal: no edema, pulses present Neurological: non-focal, moves all 4 limbs Psychiatric: normal affect, A&O x 3 Dx/Plan (1) ESRD (end stage renal disease) Code(s): N18.6 - END STAGE RENAL DISEASE Status: Acute (2) Cardiomyopathy Code(s): I42.9 - CARDIOMYOPATHY, UNSPECIFIED Status: Chronic (3) Chronic obstructive lung disease Code(s): J44.9 - CHRONIC OBSTRUCTIVE PULMONARY DISEASE, UNSPECIFIED Status: Chronic (4) Diabetes mellitus type 2 Code(s): E11.9 - TYPE 2 DIABETES MELLITUS WITHOUT COMPLICATIONS Status: Chronic (5) Diastolic heart failure Code(s): I50.30 - UNSPECIFIED DIASTOLIC (CONGESTIVE) HEART FAILURE Status: Chronic Comment: (6) Dyslipidemia Code(s): E78.5 - HYPERLIPIDEMIA, UNSPECIFIED Status: Chronic (7) Morbid obesity Code(s): E66.01 - MORBID (SEVERE) OBESITY DUE TO EXCESS CALORIES Status: Chronic - Plan will get tunnelled HD cath in am and to start HD -: diuresed well with iv lasix yesterday -: is on oral lasix and demadex -: continue coreg, norvasc, hydralazine, imdur, flomax and aspirin -: to amb as tolerated, will need outpt HD chair * . Review of Systems - Medications/Allergies Allergies/Adverse Reactions: Allergies Allergy/AdvReac Type Severity Reaction Status Date / Time No Known Allergies Allergy Verified 02/15/18 23:09 Medications: Current Medications Acetaminophen (Tylenol) 650 mg PO Q4H PRN PRN Reason: Headache/Fever/Mild Pain (1-3) Acetaminophen (Tylenol) [address] Q4H PRN PRN Reason: Headache/Fever/Mild Pain (1-3) Hydrocodone Bitart/Acetaminophen ([place] 10/325) 1 tab PO TID PRN PRN Reason: Pain > 3 Last Admin: 02/17/18 08:25 Dose: 1 tab Albuterol Sulfate (Ventolin) 7.5 mg NEB Q4H PRN PRN Reason: SOB &/or Wheezing Allopurinol (Zyloprim) 100 mg PO DAILY [facility] Last Admin: 02/17/18 08:23 Dose: 100 mg Amlodipine Besylate (Norvasc) 10 mg PO DAILY [facility] Last Admin: 02/17/18 08:28 Dose: 10 mg Aspirin (Ecotrin) 325 mg PO DAILY [facility] Last Admin: 02/17/18 08:27 Dose: 325 mg Atorvastatin Calcium (Lipitor) 40 mg PO HS [facility] Last Admin: 02/16/18 20:51 Dose: 40 mg Carvedilol (Coreg) 25 mg PO BID [facility] Last Admin: 02/17/18 08:27 Dose: 25 mg Cholecalciferol (Vitamin D3) 5,000 units PO DAILY [facility] Last Admin: 02/17/18 08:26 Dose: 5,000 units Fluticasone Propionate (Flonase Nasal [place]) 0 gm NASAL DAILY PRN PRN Reason: Allergies Furosemide (Lasix) 80 mg PO DAILY [facility] Last Admin: 02/17/18 08:24 Dose: 80 mg Gabapentin (Neurontin) 600 mg PO DAILY [facility] Last Admin: 02/17/18 08:27 Dose: 600 mg Hydralazine HCl (Apresoline) 100 mg PO TID [facility] Last Admin: 02/17/18 08:24 Dose: 100 mg Ipratropium [place] (Atrovent 0.06% Nasal Inhaler) 0 ml EA NARE ASDIR [facility] Ipratropium [place] (Atrovent) 2.5 ml NEB Q8H PRN PRN Reason: SOB &/or Wheezing Iron/Minerals/Multivitamins (Theragran M) 1 tab PO DAILY [facility] Last Admin: 02/17/18 08:27 Dose: 1 tab Isosorbide Mononitrate (Imdur) 60 mg PO TID [facility] Last Admin: 02/17/18 08:28 Dose: 60 mg Magnesium Oxide (Magnesium Oxide) 250 mg PO DAILY [facility] Last Admin: 02/17/18 08:23 Dose: 250 mg Mometasone Furoate/Formoterol Fumar (Dulera 200 Mcg/5 Mcg Inhaler) 2 puff INH BID-RT [facility] Last Admin: 02/17/18 06:55 Dose: 2 puff Ondansetron HCl (Zofran) 4 mg IVP Q6H PRN PRN Reason: Nausea/Vomiting Probenecid/Colchicine 500mg/0. 5mg Tablet 0 each PO BID [facility] Last Admin: 02/17/18 08:28 Dose: 1 each Senna/Docusate Sodium (Senokot S) 2 tab PO BID PRN PRN Reason: Constipation Senna/Docusate Sodium (Senokot S) 1 tab PO BID [facility] Last Admin: 02/17/18 08:28 Dose: 1 tab Tamsulosin HCl (Flomax) 0.4 mg PO HS [facility] Last Admin: 02/16/18 20:51 Dose: 0.4 mg Torsemide (Demadex) 100 mg PO DAILY [facility] Last Admin: 02/17/18 08:31 Dose: 100 mg
[2018-02-17] MEDS ORDERED: Dextrose 50% Abboject 50 ML SYRINGE IVP PRN (13:03)
[2018-02-17] MEDS ORDERED: Dextrose 5% in Water 1,000 ML IV PRN (13:03)
[2018-02-17] MEDS ORDERED: HumaLOG 300 UNITS/3 ML VIAL SC PRN (13:03)
--- NOTE | 2018-02-17 16:57 | PRG ---
DATE OF SERVICE: 02/17/2018 SUBJECTIVE: A 52-year-old male being seen for end-stage renal disease. Patient denies any nausea, v omiting or chest pain. PHYSICAL EXAMINATION: GENERAL: Patient is awake, alert. VITAL SIGNS: Afebrile, pulse 77, breathing at 16, blood pressure . HEAD/NECK: Normocephalic. Atraumatic. EYES: EOMI. No deformity. EARS: Clear. No ulcers. NOSE: Intact. No lesions. MOUTH: Clear. No discharge. THROAT: Clear. No exudate. LUNGS: Clear. No crackles. CARDIAC: S1, S2. No rub. ABDOMEN: Benign. BS+. GENITALIA/RECTUM: Gimenez absent. BACK/EXTREMITIES: Edema 0+ Ulcer- NEUROLOGICAL: Alert and motor intact. SKIN: Rash- Bruise- LYMPHATICS: Edema- Ulcer- LABORATORY DATA: hemoglobin 8.2, potassium 3.8, creatinine 5.4. ASSESSMENT AND RECOMMENDATIONS: 1. Chronic kidney disease stage 6, plan dialysis. 2. Hypertension, stable. 3. Anemia, stable. 4. Medication based on GFR are appropriate. I will give Epogen.
[2018-02-17] MEDS: Atorvastatin Calcium 40 MG TAB PO SCH (20:48)
[2018-02-17] MEDS: Tamsulosin HCl 0.4 MG CAP PO SCH (20:50)
[2018-02-18] MEDS: Mometasone/Formoterol 120 PUFF INHALER INH SCH ×2 (06:50→19:32)
[2018-02-18] MEDS: Multivitamin W/ Minerals 1 TAB PO SCH (08:53)
[2018-02-18] MEDS: Amlodipine 10 MG TAB PO SCH (08:53)
[2018-02-18] MEDS: hydrALAZINE 25 MG TAB PO SCH ×3 (08:54→19:40)
[2018-02-18] MEDS: Senokot S 8.6-50 MG TAB PO SCH ×2 (08:54→19:40)
[2018-02-18] MEDS: Gabapentin 300 MG CAP PO SCH (08:54)
[2018-02-18] MEDS: Allopurinol 100 MG TAB PO SCH (08:54)
[2018-02-18] MEDS: PROBENECID PO SCH ×2 (08:55→19:45)
[2018-02-18] MEDS: Furosemide 80 MG TAB PO SCH (08:55)
[2018-02-18] MEDS: Carvedilol 25 MG TAB PO SCH ×2 (08:55→19:39)
[2018-02-18] MEDS: Aspirin 325 mg Enteric Coated Tablet PO SCH (08:55)
[2018-02-18] MEDS: Magnesium Oxide 250 MG TAB PO SCH (08:55)
[2018-02-18] MEDS: COLCHICINE PO SCH ×2 (08:55→19:45)
[2018-02-18] MEDS: Torsemide 100 MG TAB PO SCH (08:56)
--- NOTE | 2018-02-18 10:14 | PDOC.PN ---
- Subjective Encounter Start Date: 02/18/18 Encounter Start Time: 09:00 Subjective: no sob, is amb in room -: npo for tunnelled HD cath today - Objective MAR Reviewed: Yes Vital Signs & Weight: Vital Signs (12 hours) Temp Pulse Resp BP Pulse Ox 02/18/18 07:00 97.6 F 83 15 140/72 96 02/18/18 03:50 97.7 F 80 14 174/80 H 97 Weight Weight 258 lb 8 oz I&O: 02/17/18 02/18/18 02/19/18 06:59 06:59 06:59 Intake Total 750 1080 Output Total 950 1150 Balance -200 -70 Result Diagrams: 02/17/18 04:05 02/17/18 04:05 Additional Labs: Accuchecks 02/18/18 02/17/18 02/17/18 05:47 20:08 17:14 POC Glucose 152 H 136 H 152 H Phys Exam - Physical Examination HEENT: PERRLA, moist MMs Neck: no JVD, supple Respiratory: no wheezing, no rales Cardiovascular: RRR, no significant murmur Gastrointestinal: soft, non-tender, positive bowel sounds Musculoskeletal: no edema, pulses present Neurological: non-focal, moves all 4 limbs Psychiatric: normal affect, A&O x 3 Dx/Plan (1) ESRD (end stage renal disease) Code(s): N18.6 - END STAGE RENAL DISEASE Status: Acute (2) Cardiomyopathy Code(s): I42.9 - CARDIOMYOPATHY, UNSPECIFIED Status: Chronic (3) Chronic obstructive lung disease Code(s): J44.9 - CHRONIC OBSTRUCTIVE PULMONARY DISEASE, UNSPECIFIED Status: Chronic (4) Diabetes mellitus type 2 Code(s): E11.9 - TYPE 2 DIABETES MELLITUS WITHOUT COMPLICATIONS Status: Chronic (5) Diastolic heart failure Code(s): I50.30 - UNSPECIFIED DIASTOLIC (CONGESTIVE) HEART FAILURE Status: Chronic Comment: (6) Dyslipidemia Code(s): E78.5 - HYPERLIPIDEMIA, UNSPECIFIED Status: Chronic (7) Morbid obesity Code(s): E66.01 - MORBID (SEVERE) OBESITY DUE TO EXCESS CALORIES Status: Chronic - Plan for HD cath today then HD per 's adv -: htn is stable -: continue lasix, demadex, norvasc, coreg, hydralazine, imdur -: will need outpt HD chair, relevant labs for the same per -: to amb as tolerated * . Review of Systems - Medications/Allergies Allergies/Adverse Reactions: Allergies Allergy/AdvReac Type Severity Reaction Status Date / Time No Known Allergies Allergy Verified 02/15/18 23:09 Medications: Current Medications Acetaminophen (Tylenol) 650 mg PO Q4H PRN PRN Reason: Headache/Fever/Mild Pain (1-3) Acetaminophen (Tylenol) 650 mg [place] Q4H PRN PRN Reason: Headache/Fever/Mild Pain (1-3) Hydrocodone Bitart/Acetaminophen ([place] 10/325) 1 tab PO TID PRN PRN Reason: Pain > 3 Last Admin: 02/17/18 15:51 Dose: 1 tab Albuterol Sulfate (Ventolin) 7.5 mg NEB Q4H PRN PRN Reason: SOB &/or Wheezing Allopurinol (Zyloprim) 100 mg PO DAILY [facility] Last Admin: 02/18/18 08:54 Dose: 100 mg Amlodipine Besylate (Norvasc) 10 mg PO DAILY [facility] Last Admin: 02/18/18 08:53 Dose: 10 mg Aspirin (Ecotrin) 325 mg PO DAILY [facility] Last Admin: 02/18/18 08:55 Dose: 325 mg Atorvastatin Calcium (Lipitor) 40 mg PO HS [facility] Last Admin: 02/17/18 20:48 Dose: 40 mg Carvedilol (Coreg) 25 mg PO BID [facility] Last Admin: 02/18/18 08:55 Dose: 25 mg Cholecalciferol (Vitamin D3) 5,000 units PO DAILY [facility] Last Admin: 02/18/18 08:54 Dose: 5,000 units Dextrose/Water (Dextrose 50%) 25 gm IVP PRN PRN PRN Reason: HYPOGLYCEMIA PROTOCOL Fluticasone Propionate (Flonase Nasal [place]) 0 gm NASAL DAILY PRN PRN Reason: Allergies Furosemide (Lasix) 80 mg PO DAILY [facility] Last Admin: 02/18/18 08:55 Dose: 80 mg Gabapentin (Neurontin) 600 mg PO DAILY [facility] Last Admin: 02/18/18 08:54 Dose: 600 mg Glucagon (Glucagon) 1 mg IM PRN PRN PRN Reason: HYPOGLYCEMIA PROTOCOL Hydralazine HCl (Apresoline) 100 mg PO TID [facility] Last Admin: 02/18/18 08:54 Dose: 100 mg Dextrose/Water (D5w) 1,000 mls @ 0 mls/hr IV INF PRN PRN Reason: HYPOGLYCEMIA PROTOCOL Insulin Human Lispro (Humalog) 0 units SC .MODERATE SLIDING SC PRN; Protocol PRN Reason: MODERATE SLIDING SCALE Ipratropium [place] (Atrovent 0.06% Nasal Inhaler) 0 ml EA NARE ASDIR YANI Ipratropium [place] (Atrovent) 2.5 ml NEB Q8H PRN PRN Reason: SOB &/or Wheezing Iron/Minerals/Multivitamins (Theragran M) 1 tab PO DAILY [facility] Last Admin: 02/18/18 08:53 Dose: 1 tab Isosorbide Mononitrate (Imdur) 60 mg PO TID [facility] Last Admin: 02/18/18 08:55 Dose: 60 mg Magnesium Oxide (Magnesium Oxide) 250 mg PO DAILY [facility] Last Admin: 02/18/18 08:55 Dose: 250 mg Mometasone Furoate/Formoterol Fumar (Dulera 200 Mcg/5 Mcg Inhaler) 2 puff INH BID-RT [facility] Last Admin: 02/18/18 06:50 Dose: 2 puff Ondansetron HCl (Zofran) 4 mg IVP Q6H PRN PRN Reason: Nausea/Vomiting Probenecid/Colchicine 500mg/0. 5mg Tablet 0 each PO BID [facility] Last Admin: 02/18/18 08:55 Dose: 1 each Senna/Docusate Sodium (Senokot S) 2 tab PO BID PRN PRN Reason: Constipation Senna/Docusate Sodium (Senokot S) 1 tab PO BID [facility] Last Admin: 02/18/18 08:54 Dose: 1 tab Tamsulosin HCl (Flomax) 0.4 mg PO HS [facility] Last Admin: 02/17/18 20:50 Dose: 0.4 mg Torsemide (Demadex) 100 mg PO DAILY [facility] Last Admin: 02/18/18 08:56 Dose: 100 mg
[2018-02-18] MEDS ORDERED: CEFAZOLIN 2 GM/50 ML BAG ONE (11:26)
--- NOTE | 2018-02-18 11:42 | HP ---
HISTORY OF PRESENT ILLNESS: Hima Morales is a 52-year-old black male patient who Dr. Abreu has asked me to see regarding establishment of dialysis access for chronic kidney disease culminating in end-stage renal disease. He was admitted late Sunday night, and I was called Sunday morning. His electrolytes were normal. He was not dyspneic. He is planned for placement of a hemodialysis chacorta ter today. He did have a right antecubital IV placed in the emergency room which on telephone conver sation with the nurse Sunday I had them remove as soon as possible. The patient has had ultrasound vein mapping. He is right-handed and vein mapping reveals the right cephalic vein wrist to be possi sim a candidate for a fistula. Plan is to place hemodialysis catheter today and a primary fistula in the next 24-48 hours. He understands risks and benefits and consents. ALLERGIES: None. TOBACCO: Cessation more than 10 years ago. ALCOHOL: None. MEDICATIONS: Colace, probenecid, colchicine, Lipitor, Ventolin, allopurinol, torsemide 100 mg a day, Flomax 0.4 mg daily, Lasix daily, Flonase nasal spray, carvedilol 25 mg b.i.d., vitamin D3 daily, mu ltivitamins daily, magnesium daily, ipratropium bromide inhaler t.i.d. p.r.n., hydrocortisone, [place] 10/325 p.r.n., gabapentin daily, aspirin 325 mg a day, amlodipine 10 mg a day, isosorbide, Imdur 60 m g t.i.d., hydralazine 100 t.i.d. PAST MEDICAL HISTORY: Hypertension, chronic kidney disease, chronic obstructive pulmonary disease, s table coronary disease with diastolic dysfunction seen by Dr. Shelley, EF is normal, but he has jordan stolic dysfunction, diabetes mellitus type 2. He has stopped taking his insulin several years ago, s topped his oral hypoglycemics as his kidney function has worsened. He controls his diabetes with t, COPD, sleep apnea, using a CPAP at home. PAST SURGICAL HISTORY: Lumbar surgery and neck surgery. REVIEW OF SYSTEMS: Ten point noncontributory. PHYSICAL EXAMINATION: VITAL SIGNS: Height 5 foot 3, 258 pounds, 45 BMI, 97.6, 83, 140/72. LUNGS: Clear to auscultation. GENERAL: Few rhonchi at base. CARDIAC: Regular rate and rhythm without murmur or gallop. ABDOMEN: Soft, obese. EXTREMITIES: Palpable radial pulses, palpable pedal pulses. Ankle edema, extremity edema. LABORATORY DATA: White count 4, hemoglobin 8.2. Accu-Cheks 141, 152. Sodium 140, potassium 3.8, BU N 58, creatinine 5.43, GFR 13. ASSESSMENT AND PLAN: 1. End-stage renal disease. We will plan placement of a hemodialysis catheter today and a primary f istula later in the week. We will place a central line during the operation. 2. Sleep apnea 3. Diabetes mellitus, diet controlled. 4. Hypercholesterolemia. 5. Hypertension. 6. Sleep apnea. 7. Chronic obstructive pulmonary disease, history of tobacco use. Uses inhalers at home. 8. Diastolic dysfunction, normal echocardiogram, seen by Dr. Shelley.
[2018-02-18] MEDS ORDERED: Heparin 10,000 UNITS/ 10 ML VIAL ONE (12:00)
[2018-02-18] MEDS ORDERED: Bupivacaine HCl 0.5%/Epinephrine 1:200,000/PF 30 ml Vial ONE (12:37)
[2018-02-18] MEDS ORDERED: Lidocaine 2% PF 5 ML VIAL ONE (12:37)
[2018-02-18] MEDS ORDERED: Heparin 10,000 UNITS/1 ML VIAL ONE (12:37)
[2018-02-18] MEDS ORDERED: Sodium Chloride 0.9% 30 ML ONE (12:38)
[2018-02-18] MEDS ORDERED: Midazolam HCl 2 mg/2 ml Vial ONE (12:42)
[2018-02-18] MEDS ORDERED: Fentanyl 100 MCG/2 ML VIAL ONE (12:42)
[2018-02-18] MEDS ORDERED: Ketamine 50 MG/ML (10ML VIAL) ONE (12:52)
[2018-02-18] MEDS ORDERED: Midazolam HCl 5 mg/5 ml Vial ONE (12:52)
[2018-02-18] MEDS ORDERED: PROPOFOL 200 MG/20 ML VIAL ONE (15:03)
--- NOTE | 2018-02-18 15:45 | RAD ---
ONE VIEW CHEST: HISTORY: Postoperative patient. Interval placement of venous catheters. COMPARISON: 02/15/2018 FINDINGS: There is a right-sided HemoSplit dialysis catheter with the distal tip in the expected region of the superior vena cava. There is a left-sided internal jugular central venous catheter with the distal t ip in the superior vena cava. There is no pneumothorax. The heart is enlarged. Pulmonary vessels a nd hilum are normal. Costophrenic angles are clear. No masses or consolidation. No pneumothorax or osseous abnormalities. IMPRESSION: 1. Cardiomegaly with no evidence of failure. 2. Vascular catheters, as above. 3. No pneumothorax. POS: [facility]
[2018-02-18] MEDS ORDERED: Tuberculin PPD 0.1 ML VIAL I-DERMAL SCH (16:00)
--- NOTE | 2018-02-18 18:42 | PRG ---
DATE OF SERVICE: 02/18/2018 SUBJECTIVE: Patient was seen and examined at bedside and overnight events noted. Patient denies any shortness of breath or chest pain or palpitation. No history of nausea or vomiting or diarrhea or f ever or chills or cramps. OBJECTIVE: GENERAL: This is a morbidly obese male in no apparent distress. VITAL SIGNS: Temperature 97.6, pulse 83, respiratory rate 18, blood pressure 140/72. HEENT: Atraumatic, normocephalic. Oral mucosa is moist. NECK: Supple. CARDIOVASCULAR: S1, S2 heard. Rate and rhythm regular. RESPIRATORY: Clear to auscultation. GASTROINTESTINAL: Abdomen is soft. MUSCULOSKELETAL: No tenderness. No edema. DERMATOLOGIC: No skin rash. NEUROLOGIC: Alert and awake and oriented x3. No focal neurologic deficits. Moving all the extremiti es. PSYCHIATRIC: Mood and affect normal. LABORATORY DATA: Potassium is 3.8, BUN 58, creatinine 5.1. ASSESSMENT AND PLAN: 1. End-stage renal disease, started on hemodialysis. 2. Hypertension, stable. 3. Edema. We will continue on dialysis as tolerated. Case management consult for outpatient [facility] ent.
--- NOTE | 2018-02-18 19:05 | OP ---
DATE OF PROCEDURE: 02/18/2018 PREOPERATIVE DIAGNOSES: End-stage renal disease, poor intravenous access. POSTOPERATIVE DIAGNOSES: End-stage renal disease, poor intravenous access. PROCEDURES PERFORMED: Right IJ cuffed tunnel hemodialysis catheter, angiodynamics precurved, left IJ central line fluoroscopy and ultrasound use. SURGEON: Sohail Rodriguez M.D. ANESTHESIA: Intravenous sedation, local 0.5% Marcaine with epinephrine 30 mL mixed with 2% Xylocaine , 10 mL PROCEDURE: The patient was taken to the operating room where under intravenous sedation, neck and ch est were prepared with ChloraPrep, draped in routine fashion. Local anesthetic mixture 0.5% Marcaine with epinephrine, 30 mL, mixed with 2% Xylocaine, 10 mL infiltrated into skin and subcutaneous tissu e about the operative site. Using ultrasound guidance, the right and left internal jugular veins wer e cannulated with trocar catheter. J-wire was threaded. Trocar catheter was removed. Skin was inci sed and enlarged sharply. Stab incision made over the right chest. Salinger technique used to place a left IJ triple-lumen catheter, removing the J-wire, securing with 3-0 nylon suture. Biopatch ster ile dressing applied. Each port aspirated of blood and flushed with saline solution. A stab incision was made over the right chest. Using the tunneling device, precurved angiodynamics c uffed tunnel hemodialysis catheter tunneled between two incisions, placing the fabric cuff beneath th e skin exit site. Catheter was secured with 2 interrupted sutures of 3-[address] nylon. Biopatch sterile dr essing applied. Smaller and medium sized dilators were placed over the J-wire into the internal jugu lar vein removed. Dilator and pull-away sheath placed over the J-wire in superior vena cava and dila tor and J-wire removed. Catheter placed through the pull-away sheath. Pull-away sheath removed. Fl uoroscopically, both catheters were noted be in good position. Platysma was approximated with 4-0 Mo nocryl, skin with subdermal 4-0 Monocryl and DermaGlue applied. Sterile dressings applied. Each por t aspirated of blood and flushed with saline solution and heparinized saline solution 1000 units hepa rin per mL indicated volume of port.
[2018-02-18] MEDS: HYDROcodone/Acetaminophen 10/325 mg Tablet PO PRN (19:38)
[2018-02-18] MEDS: Atorvastatin Calcium 40 MG TAB PO SCH (19:39)
[2018-02-18] MEDS: Tamsulosin HCl 0.4 MG CAP PO SCH (19:40)
[2018-02-18] MEDS: Tuberculin PPD 0.1 ML VIAL I-DERMAL SCH (23:04)
[2018-02-19] MEDS: HYDROcodone/Acetaminophen 10/325 mg Tablet PO PRN (04:25)
[2018-02-19] MEDS: Mometasone/Formoterol 120 PUFF INHALER INH SCH ×2 (07:16→18:30)
--- NOTE | 2018-02-19 08:37 | PDOC.PN ---
- Subjective Encounter Start Date: 02/19/18 Encounter Start Time: 08:35 Subjective: New dialysis catheter, awaiting OP placement for dialysis, and new AVF - Objective MAR Reviewed: Yes Vital Signs & Weight: Vital Signs (12 hours) Temp Pulse Resp BP Pulse Ox 02/19/18 04:00 98.5 F 81 18 173/76 H 94 L Weight Weight 257 lb 12.8 oz I&O: 02/18/18 02/19/18 02/20/18 06:59 06:59 06:59 Intake Total 1080 900 Output Total 1150 1050 Balance -70 -150 Result Diagrams: 02/17/18 04:05 02/19/18 08:38 Additional Labs: Accuchecks 02/19/18 02/18/18 02/18/18 06:20 20:35 17:21 POC Glucose 146 H 173 H 96 02/18/18 10:36 POC Glucose 141 H Phys Exam - Physical Examination HEENT: PERRLA, moist MMs, sclera anicteric, TM's clear, oral pharynx no lesions , 2+ tonsils LEFT IJ dialysis catheter Neck: no nodes, no JVD, supple, full ROM Respiratory: no wheezing, no rales, no rhonchi Cardiovascular: RRR, no significant murmur, no rub Gastrointestinal: soft, non-tender, no distention, positive bowel sounds Musculoskeletal: edema present Neurological: non-focal, normal sensation, moves all 4 limbs Psychiatric: normal affect, A&O x 3 Dx/Plan (1) ESRD (end stage renal disease) Code(s): N18.6 - END STAGE RENAL DISEASE Status: Acute Comment: LEFT IJ tunnled cather placed. UF removal to address volume overload and electrolytes. Pending OP dialysis placement (2) Renovascular hypertension Code(s): I15.0 - RENOVASCULAR HYPERTENSION Status: Active Comment: Continue antihypertensives, poorly controlled, Amlodipine, CARVEDILOL, hYDRALAZINE (3) CHF (congestive heart failure) Code(s): I50.9 - HEART FAILURE, UNSPECIFIED Status: Chronic Comment: Continued diuresis with lasix and demadex. Dialysis to further address volume overload Continue Carvedilol (4) Dyspnea Code(s): R06.00 - DYSPNEA, UNSPECIFIED Status: Acute Qualifiers: Dyspnea type: shortness of breath Qualified Code(s): R06.02 - Shortness of breath; R06.00 - Dyspnea, unspecified; R06.01 - Orthopnea Comment: diuresis (5) Chronic obstructive lung disease Code(s): J44.9 - CHRONIC OBSTRUCTIVE PULMONARY DISEASE, UNSPECIFIED Status: Chronic (6) Diabetes mellitus type 2 Code(s): E11.9 - TYPE 2 DIABETES MELLITUS WITHOUT COMPLICATIONS Status: Chronic Comment: continue mod sliding scale - Plan cont current plan of care, plan discussed w/ family, DVT proph w/lovenox, DVT proph w/SCDs * .
[2018-02-19] MEDS: Allopurinol 100 MG TAB PO SCH (09:00)
[2018-02-19] MEDS: Senokot S 8.6-50 MG TAB PO SCH ×2 (09:00→21:20)
[2018-02-19] MEDS: COLCHICINE PO SCH ×2 (09:00→21:19)
[2018-02-19] MEDS: PROBENECID PO SCH ×2 (09:00→21:19)
[2018-02-19] MEDS: Aspirin 325 mg Enteric Coated Tablet PO SCH (09:00)
[2018-02-19] MEDS: Multivitamin W/ Minerals 1 TAB PO SCH (09:00)
[2018-02-19 09:14] LABS: Anion Gap 11 mmol/L (10-20); BUN (Urea Nitrogen) 38 mg/dL (8.4-25.7); Calc. Creatinine Clearance 38 mL/min (70-130); Calcium 8.3 mg/dL (7.8-10.44); Carbon Dioxide 30 mmol/L (22-29); Chloride 103 mmol/L (98-107); Estimated GFR-MDRD 21; Glucose 131 mg/dL (70-105); Potassium 3.7 mmol/L (3.5-5.1); Sodium 140 mmol/L (136-145)
--- NOTE | 2018-02-19 09:24 | PRG ---
Patient Name: LAUREN VELÁZQUEZ Date of service: 02/19/2018 Subjective: Patient was seen and examined at bedside and overnight events noted. Patient denies any shortness of breath or chest pain or palpitation. No history of nausea or vomiting or diarrhea or fever or chills or cramps. Objective: General: This is a morbidly obese male in no apparent distress. Vital signs: Temperature 98.5, pulse 81, respiratory rate 18, blood pressure 173/76. HEENT: Atraumatic, normocephalic. Oral mucosa is moist. Neck: Supple. Cardiovascular: S1 S2 heard. Rate and rhythm regular. Respiratory: Clear to auscultation. Gastrointestinal: Abdomen is soft. Musculoskeletal: No tenderness. No edema. Dermatologic: No skin rash. Neurologic: Alert and awake and oriented X3. No focal neurologic deficits. Moving all the extremit ies. Psychiatric: Mood and affect normal. LABORATORY DATA: Not done today. ASSESSMENT AND PLAN: 1. End-stage renal disease. Continue dialysis. 2. Hypertension, stable. 3. Edema, controlled. 4. Anemia. We will monitor. 5. Follow with case management for outpatient placement. Follow up with Surgery for dialysis access placement, fistula. Will have dialysis today and plan is to continue dialysis or Sunday as tolerated.
[2018-02-19] MEDS ORDERED: Heparin 10,000 UNITS/ 10 ML VIAL ONE (10:00)
[2018-02-19] MEDS: Gabapentin 300 MG CAP PO SCH (10:45)
[2018-02-19] MEDS: Amlodipine 10 MG TAB PO SCH (10:45)
[2018-02-19] MEDS: Carvedilol 25 MG TAB PO SCH ×2 (10:45→21:20)
[2018-02-19] MEDS: Enoxaparin Sodium 40 MG/0.4 ML SYRINGE SC SCH (10:47)
[2018-02-19] MEDS: hydrALAZINE 25 MG TAB PO SCH ×3 (11:33→21:20)
[2018-02-19] MEDS: Torsemide 100 MG TAB PO SCH (11:33)
[2018-02-19 13:18] LABS: HCV log10 6.413 (.); Hep C PCR-Quant 2590000 IU/mL (.)
[2018-02-19] MEDS: Atorvastatin Calcium 40 MG TAB PO SCH (21:20)
[2018-02-19] MEDS: Tamsulosin HCl 0.4 MG CAP PO SCH (21:21)
[2018-02-20] MEDS: Tuberculin PPD 0.1 ML VIAL I-DERMAL SCH ×3 (01:28→22:34)
[2018-02-20] MEDS: Mometasone/Formoterol 120 PUFF INHALER INH SCH ×2 (06:57→18:26)
[2018-02-20] MEDS: Amlodipine 10 MG TAB PO SCH (08:43)
[2018-02-20] MEDS: hydrALAZINE 25 MG TAB PO SCH ×3 (08:44→21:19)
[2018-02-20] MEDS: Gabapentin 300 MG CAP PO SCH (08:44)
[2018-02-20] MEDS: Senokot S 8.6-50 MG TAB PO SCH ×2 (08:45→21:20)
[2018-02-20] MEDS: Allopurinol 100 MG TAB PO SCH (08:45)
[2018-02-20] MEDS: Multivitamin W/ Minerals 1 TAB PO SCH (08:45)
[2018-02-20] MEDS: Enoxaparin Sodium 40 MG/0.4 ML SYRINGE SC SCH (08:47)
[2018-02-20] MEDS: Aspirin 325 mg Enteric Coated Tablet PO SCH (08:47)
[2018-02-20] MEDS: Carvedilol 25 MG TAB PO SCH ×2 (08:47→21:20)
[2018-02-20] MEDS: COLCHICINE PO SCH ×2 (08:50→21:18)
[2018-02-20] MEDS: PROBENECID PO SCH ×2 (08:50→21:18)
[2018-02-20] MEDS: Torsemide 100 MG TAB PO SCH (08:51)
--- NOTE | 2018-02-20 13:04 | PDOC.PN ---
- Subjective Encounter Start Date: 02/20/18 Encounter Start Time: 13:02 Subjective: DOING WELL, AWAITING AVF placement and OP dialysis placement - Objective Vital Signs & Weight: Vital Signs (12 hours) Temp Pulse Resp BP BP Pulse Ox 02/20/18 11:50 98.6 F 84 18 144/69 H 97 02/20/18 08:44 78 02/20/18 08:43 78 179/78 H 02/20/18 07:50 100 F H 80 16 179/78 H 95 02/20/18 06:57 78 18 98 02/20/18 04:00 97.6 F 86 16 148/67 H 96 Weight Weight 246 lb 8 oz I&O: 02/19/18 02/20/18 02/21/18 06:59 06:59 06:59 Intake Total 900 1020 Output Total 1050 2750 Balance -150 -1730 Result Diagrams: 02/17/18 04:05 02/19/18 08:38 Additional Labs: Accuchecks 02/20/18 02/19/18 05:41 21:12 POC Glucose 90 147 H Phys Exam - Physical Examination HEENT: PERRLA, moist MMs, sclera anicteric, TM's clear, oral pharynx no lesions , 2+ tonsils Neck: no nodes, no JVD, supple, full ROM left IJcatheter placement Respiratory: no wheezing, no rales, no rhonchi Cardiovascular: RRR, no significant murmur, no rub Gastrointestinal: soft, non-tender, no distention, positive bowel sounds Musculoskeletal: edema present Dx/Plan (1) ESRD (end stage renal disease) Code(s): N18.6 - END STAGE RENAL DISEASE Status: Acute Comment: LEFT IJ tunnled cather placed. UF removal to address volume overload and electrolytes. Pending OP dialysis placement. Plans for AVF today (2) Renovascular hypertension Code(s): I15.0 - RENOVASCULAR HYPERTENSION Status: Active Comment: Continue antihypertensives, poorly controlled, Amlodipine, CARVEDILOL, hYDRALAZINE (3) CHF (congestive heart failure) Code(s): I50.9 - HEART FAILURE, UNSPECIFIED Status: Chronic Comment: Continued diuresis with lasix and demadex. Dialysis to further address volume overload Continue Carvedilol (4) Dyspnea Code(s): R06.00 - DYSPNEA, UNSPECIFIED Status: Acute Qualifiers: Dyspnea type: shortness of breath Qualified Code(s): R06.02 - Shortness of breath; R06.00 - Dyspnea, unspecified; R06.01 - Orthopnea Comment: diuresis (5) Chronic obstructive lung disease Code(s): J44.9 - CHRONIC OBSTRUCTIVE PULMONARY DISEASE, UNSPECIFIED Status: Chronic (6) Diabetes mellitus type 2 Code(s): E11.9 - TYPE 2 DIABETES MELLITUS WITHOUT COMPLICATIONS Status: Chronic Comment: continue mod sliding scale - Plan * .
[2018-02-20] MEDS ORDERED: CEFAZOLIN 2 GM/50 ML BAG ONE (15:48)
[2018-02-20] MEDS ORDERED: Fentanyl 100 MCG/2 ML VIAL ONE ×2 (15:50→16:42)
[2018-02-20] MEDS ORDERED: Midazolam HCl 2 mg/2 ml Vial ONE (15:50)
[2018-02-20] MEDS ORDERED: Bupivacaine HCl 0.5%/Epinephrine 1:200,000/PF 30 ml Vial ONE ×2 (15:58→16:48)
[2018-02-20] MEDS ORDERED: READ PPD TEST SITE PO SCH ×2 (16:00→22:30)
[2018-02-20] MEDS ORDERED: Protamine Sulfate 50 MG/5 ML VIAL ONE (16:48)
[2018-02-20] MEDS ORDERED: Lidocaine 2% PF 5 ML VIAL ONE (16:48)
[2018-02-20] MEDS ORDERED: Heparin 5,000 UNITS/ML VIAL ONE (16:48)
[2018-02-20] MEDS ORDERED: Heparin 10,000 UNITS/ 10 ML VIAL ONE (17:13)
[2018-02-20] MEDS ORDERED: Ondansetron PF 4 MG/2 ML Vial ONE (17:13)
[2018-02-20] MEDS ORDERED: PROPOFOL 200 MG/20 ML VIAL ONE (17:13)
[2018-02-20] MEDS ORDERED: traMADol HCl 50 MG TAB PO PRN ×2 (18:13)
[2018-02-20] MEDS ORDERED: Acetaminophen 500 MG TAB PO PRN (18:13)
--- NOTE | 2018-02-20 18:31 | PRG ---
DATE OF SERVICE: 02/20/2018 SUBJECTIVE: Patient was seen and examined at bedside and overnight events noted. Patient denies any shortness of breath or chest pain or palpitation. No history of nausea or vomiting or diarrhea or f ever or chills or cramps. OBJECTIVE: GENERAL: Morbidly obese male in no apparent distress. VITAL SIGNS: Temperature 98.6, pulse 84, respiratory rate 18, blood pressure 144/69. HEENT: Atraumatic, normocephalic. Oral mucosa is moist. NECK: Supple. CARDIOVASCULAR: S1, S2 heard. Rate and rhythm regular. RESPIRATORY: Clear to auscultation. GASTROINTESTINAL: Abdomen is soft. MUSCULOSKELETAL: No tenderness. No edema. DERMATOLOGIC: No skin rash. NEUROLOGIC: Alert and awake and oriented x3. No focal neurologic deficits. Moving all the extremiti es. PSYCHIATRIC: Mood and affect normal. LABORATORY DATA: Not done today. ASSESSMENT AND PLAN: 1. End-stage renal disease. Continue on dialysis. 2. Hypertension. 3. Edema, controlled. 4. Anemia, we will monitor. 5. We will continue on dialysis as tolerated.
[2018-02-20] MEDS: Atorvastatin Calcium 40 MG TAB PO SCH (21:20)
[2018-02-20] MEDS: Tamsulosin HCl 0.4 MG CAP PO SCH (21:20)
[2018-02-20] MEDS: HYDROcodone/Acetaminophen 10/325 mg Tablet PO PRN (21:23)
--- NOTE | 2018-02-21 01:21 | OP ---
DATE OF PROCEDURE: 02/20/2018 PREOPERATIVE DIAGNOSIS: End-stage renal disease. POSTOPERATIVE DIAGNOSIS: End-stage renal disease. PROCEDURE: Right [place] fistula calibrated 4 mm coronary dilator, excellent radial artery, excellent cephalic vein caliber. SURGEON: Dr. Sohail Rodriguez ANESTHESIA: Regional TIVA. DESCRIPTION OF PROCEDURE IN DETAIL: The patient was taken to the operating room under regional anest hesia, right upper extremity was prepped with ChloraPrep, draped in routine fashion. Incision was ma de longitudinally between the radial artery and cephalic vein at the wrist carried down skin and subc utaneous tissue. Radial artery and cephalic vein dissected free. Cephalic vein dissected free on th e hands. I ligated with a 3-0 silk tie and divided and branches divided between 4-0 silk ties and cl ips and then it was spatulated and interrogated with coronary dilators, passing coronary dilators fro m a 2 mm to 4 mm coronary dilator unobstructed throughout the cephalic vein. It was then flushed wit h heparinized saline solution. The patient was given heparin 6000 units intravenously. After adequa te circulation time, the radial artery was clamped proximally and distally. Longitudinal arteriotomy made sharply and elongated with Monahan scissors for a 2.5 cm anastomosis and cephalic vein accordingl y spatulated end-to-side radial artery with continuous suture of 6-0 Prolene for the anastomosis. Af ter completing anastomosis, vascular clamps were released and there was good Doppler signal in the ce phalic vein outflow. Good hemostasis obtained with 6-0 Prolene interrupted sutures. The patient giv en 50 mg of protamine intravenously by Anesthesia. Subcutaneous tissues approximated with 3-0 Monocr yl, skin with subdermal 4-0 Monocryl and DermaGlue applied.
[2018-02-21] MEDS: Mometasone/Formoterol 120 PUFF INHALER INH SCH ×2 (06:57→19:10)
[2018-02-21 07:30] LABS: Anion Gap 11 mmol/L (10-20); BUN (Urea Nitrogen) 39 mg/dL (8.4-25.7); Calc. Creatinine Clearance 29 mL/min (70-130); Calcium 8.5 mg/dL (7.8-10.44); Carbon Dioxide 31 mmol/L (22-29); Chloride 104 mmol/L (98-107); Estimated GFR-MDRD 16; Glucose 117 mg/dL (70-105); Potassium 4.1 mmol/L (3.5-5.1); Sodium 142 mmol/L (136-145)
[2018-02-21] MEDS: Torsemide 100 MG TAB PO SCH (09:00)
[2018-02-21] MEDS: Enoxaparin Sodium 40 MG/0.4 ML SYRINGE SC SCH (09:00)
[2018-02-21] MEDS: COLCHICINE PO SCH ×2 (09:00→20:30)
[2018-02-21] MEDS: hydrALAZINE 25 MG TAB PO SCH ×3 (09:00→20:28)
[2018-02-21] MEDS: PROBENECID PO SCH ×2 (09:00→20:30)
[2018-02-21] MEDS ORDERED: Heparin 10,000 UNITS/ 10 ML VIAL ONE (10:00)
[2018-02-21] MEDS: Gabapentin 300 MG CAP PO SCH (12:53)
[2018-02-21] MEDS: Carvedilol 25 MG TAB PO SCH ×2 (12:54→20:28)
[2018-02-21] MEDS: Amlodipine 10 MG TAB PO SCH (12:54)
[2018-02-21] MEDS: Aspirin 325 mg Enteric Coated Tablet PO SCH (12:54)
[2018-02-21] MEDS: Multivitamin W/ Minerals 1 TAB PO SCH (12:55)
[2018-02-21] MEDS: Allopurinol 100 MG TAB PO SCH (12:55)
[2018-02-21] MEDS: Senokot S 8.6-50 MG TAB PO SCH ×2 (12:55→20:28)
[2018-02-21] MEDS: HYDROcodone/Acetaminophen 10/325 mg Tablet PO PRN (12:57)
--- NOTE | 2018-02-21 15:18 | PDOC.PN ---
- Subjective Encounter Start Date: 02/21/18 Encounter Start Time: 10:00 Subjective: pt up in bed no complains - Objective Vital Signs & Weight: Vital Signs (12 hours) Temp Pulse Pulse Pulse Resp BP BP 02/21/18 12:54 74 02/21/18 12:20 99.1 F 77 18 02/21/18 11:30 78 80 163/77 H 172/79 H 02/21/18 09:00 74 02/21/18 07:45 98 F 74 20 02/21/18 06:57 78 16 02/21/18 03:32 98.5 F 77 BP BP Pulse Ox Pulse Ox Pulse Ox 02/21/18 12:54 02/21/18 12:20 156/83 H 99 02/21/18 11:30 95 97 02/21/18 09:00 02/21/18 07:45 147/72 H 100 02/21/18 06:57 100 02/21/18 03:32 128/69 98 Weight Weight 243 lb 14.4 oz I&O: 02/20/18 02/21/18 02/22/18 06:59 06:59 06:59 Intake Total 1020 200 Output Total 2750 150 Balance -1730 50 Result Diagrams: 02/17/18 04:05 02/21/18 06:50 Additional Labs: Accuchecks 02/21/18 02/21/18 02/20/18 11:47 05:48 20:47 POC Glucose 90 110 144 H 02/20/18 02/20/18 18:53 13:56 POC Glucose 97 99 Phys Exam - Physical Examination Neck: no nodes, no JVD, supple, full ROM Respiratory: no wheezing, no rales, no rhonchi, wheezing present, clear to auscultation bilateral Cardiovascular: RRR, no significant murmur, no rub, gallop, irregular Gastrointestinal: soft, non-tender, no distention, positive bowel sounds Dx/Plan (1) Dyspnea Code(s): R06.00 - DYSPNEA, UNSPECIFIED Status: Acute Qualifiers: Dyspnea type: shortness of breath Qualified Code(s): R06.02 - Shortness of breath; R06.00 - Dyspnea, unspecified; R06.01 - Orthopnea Comment: diuresis (2) ESRD (end stage renal disease) Code(s): N18.6 - END STAGE RENAL DISEASE Status: Acute Comment: LEFT IJ tunnled cather placed. UF removal to address volume overload and electrolytes. Pending OP dialysis placement. Plans for AVF today (3) Diabetes mellitus type 2 Code(s): E11.9 - TYPE 2 DIABETES MELLITUS WITHOUT COMPLICATIONS Status: Chronic Comment: continue mod sliding scale - Plan pt s/p dialysis -: will discontinue lovonox and put pt on scd or heparin -: will add phosphate binder -: discharge when ok with nephro * . Review of Systems - Review of Systems Respiratory: negative: Cough, Dry, Shortness of Breath, Hemoptysis, SOB with Excertion, Pleuritic Pain, Sputum, Wheezing Cardiovascular: negative: chest pain, palpitations, orthopnea, paroxysmal nocturnal dyspnea, edema, light headedness, other Gastrointestinal: negative: Nausea, Vomiting, Abdominal Pain, Diarrhea, Constipation, Melena, Hematochezia, Other Genitourinary: negative: Dysuria, Frequency, Incontinence, Hematuria, Retention , Other - Medications/Allergies Allergies/Adverse Reactions: Allergies Allergy/AdvReac Type Severity Reaction Status Date / Time No Known Allergies Allergy Verified 02/15/18 23:09 Medications: Current Medications Acetaminophen (Tylenol) 1,000 mg PO Q6H PRN PRN Reason: Moderate to Severe Pain (6-10) Hydrocodone Bitart/Acetaminophen ([place] 10/325) 1 tab PO TID PRN PRN Reason: Pain > 3 Last Admin: 02/21/18 12:57 Dose: 1 tab Albuterol Sulfate (Ventolin) 7.5 mg NEB Q4H PRN PRN Reason: SOB &/or Wheezing Allopurinol (Zyloprim) 100 mg PO DAILY [facility] Last Admin: 02/21/18 12:55 Dose: 100 mg Amlodipine Besylate (Norvasc) 10 mg PO DAILY [facility] Last Admin: 02/21/18 12:54 Dose: 10 mg Aspirin (Ecotrin) 325 mg PO DAILY [facility] Last Admin: 02/21/18 12:54 Dose: 325 mg Atorvastatin Calcium (Lipitor) 40 mg PO HS [facility] Last Admin: 02/20/18 21:20 Dose: 40 mg Carvedilol (Coreg) 25 mg PO BID [facility] Last Admin: 02/21/18 12:54 Dose: 25 mg Cholecalciferol (Vitamin D3) 5,000 units PO DAILY [facility] Last Admin: 02/21/18 12:55 Dose: 5,000 units Dextrose/Water (Dextrose 50%) 25 gm IVP PRN PRN PRN Reason: HYPOGLYCEMIA PROTOCOL Enoxaparin Sodium (Lovenox) 40 mg SC 0900 [facility] Last Admin: 02/21/18 09:00 Dose: Not Given Fluticasone Propionate (Flonase Nasal [place]) 0 gm NASAL DAILY PRN PRN Reason: Allergies Last Admin: 02/18/18 20:55 Dose: 2 spray Gabapentin (Neurontin) 600 mg PO DAILY [facility] Last Admin: 02/21/18 12:53 Dose: 600 mg Glucagon (Glucagon) 1 mg IM PRN PRN PRN Reason: HYPOGLYCEMIA PROTOCOL Hydralazine HCl (Apresoline) 100 mg PO TID [facility] Last Admin: 02/21/18 09:00 Dose: Not Given Dextrose/Water (D5w) 1,000 mls @ 0 mls/hr IV INF PRN PRN Reason: HYPOGLYCEMIA PROTOCOL Insulin Human Lispro (Humalog) 0 units SC .MODERATE SLIDING SC PRN; Protocol PRN Reason: MODERATE SLIDING SCALE Ipratropium [place] (Atrovent 0.06% Nasal Inhaler) 0 ml EA NARE TIDPRN PRN PRN Reason: ALLERGIC RHINITIS Ipratropium Bazine (Atrovent) 2.5 ml NEB Q8H PRN PRN Reason: SOB &/or Wheezing Iron/Minerals/Multivitamins (Theragran M) 1 tab PO DAILY [facility] Last Admin: 02/21/18 12:55 Dose: 1 tab Isosorbide Mononitrate (Imdur) 60 mg PO TID [facility] Last Admin: 02/21/18 09:00 Dose: Not Given Mometasone Furoate/Formoterol Fumar (Dulera 200 Mcg/5 Mcg Inhaler) 2 puff INH BID-RT [facility] Last Admin: 02/21/18 06:57 Dose: 2 puff Read Ppd Test Site 0 each PO 2229 [facility] Stop: 02/22/18 23:59 Read Ppd Test Site 0 each PO 2229 [facility] Stop: 02/23/18 23:59 Ondansetron HCl (Zofran) 4 mg IVP Q6H PRN PRN Reason: Nausea/Vomiting Probenecid/Colchicine 500mg/0. 5mg Tablet 0 each PO BID [facility] Last Admin: 02/21/18 09:00 Dose: Not Given Senna/Docusate Sodium (Senokot S) 2 tab PO BID PRN PRN Reason: Constipation Senna/Docusate Sodium (Senokot S) 1 tab PO BID [facility] Last Admin: 02/21/18 12:55 Dose: 1 tab Tamsulosin HCl (Flomax) 0.4 mg PO HS [facility] Last Admin: 02/20/18 21:20 Dose: 0.4 mg Torsemide (Demadex) 100 mg PO DAILY [facility] Last Admin: 02/20/18 08:51 Dose: 100 mg Tramadol HCl (Ultram) 50 mg PO Q6H PRN PRN Reason: Mild-Moderate Pain (1-5) Tramadol HCl (Ultram) 100 mg PO Q6H PRN PRN Reason: Moderate to Severe Pain (6-10)
[2018-02-21] MEDS: Sevelamer Carbonate 800 MG TAB PO SCH (16:00)
--- NOTE | 2018-02-21 18:24 | PRG ---
DATE OF SERVICE: 02/21/2018 SUBJECTIVE: Patient was seen and examined at bedside and overnight events noted. Patient denies any shortness of breath or chest pain or palpitation. No history of nausea or vomiting or diarrhea or f ever or chills or cramps. OBJECTIVE: GENERAL: This is an obese male in no apparent distress. VITAL SIGNS: Temperature 98.9, pulse 80, respiratory rate 18, blood pressure 144/75. HEENT: Atraumatic, normocephalic. Oral mucosa is moist. NECK: Supple. CARDIOVASCULAR: S1, S2 heard. Rate and rhythm regular. RESPIRATORY: Clear to auscultation. GASTROINTESTINAL: Abdomen is soft. MUSCULOSKELETAL: No tenderness. No edema. DERMATOLOGIC: No skin rash. NEUROLOGIC: Alert and awake and oriented x3. No focal neurologic deficits. Moving all the extremiti es. PSYCHIATRIC: Mood and affect normal. LABORATORY DATA: Potassium is 4.1, BUN 39, creatinine is 4.6. ASSESSMENT AND PLAN: 1. End-stage renal disease. Continue hemodialysis as tolerated. 2. Hypertension. 3. Edema, controlled. 4. Anemia. Monitor hemoglobin. Plan is to continue on dialysis as tolerated.
[2018-02-21] MEDS: Tamsulosin HCl 0.4 MG CAP PO SCH (20:27)
[2018-02-21] MEDS: Atorvastatin Calcium 40 MG TAB PO SCH (20:27)
[2018-02-21] MEDS ORDERED: READ PPD TEST SITE PO SCH (22:00)
[2018-02-22] MEDS: Mometasone/Formoterol 120 PUFF INHALER INH SCH ×2 (07:10→18:58)
[2018-02-22] MEDS: Gabapentin 300 MG CAP PO SCH (08:37)
[2018-02-22] MEDS: Torsemide 100 MG TAB PO SCH (08:37)
[2018-02-22] MEDS: COLCHICINE PO SCH ×2 (08:37→21:57)
[2018-02-22] MEDS: PROBENECID PO SCH ×2 (08:37→21:57)
[2018-02-22] MEDS: hydrALAZINE 25 MG TAB PO SCH ×3 (08:38→20:03)
[2018-02-22] MEDS: Allopurinol 100 MG TAB PO SCH (08:38)
[2018-02-22] MEDS: Aspirin 325 mg Enteric Coated Tablet PO SCH (08:39)
[2018-02-22] MEDS: Carvedilol 25 MG TAB PO SCH ×2 (08:39→20:04)
[2018-02-22] MEDS: Amlodipine 10 MG TAB PO SCH (08:39)
[2018-02-22] MEDS: Senokot S 8.6-50 MG TAB PO SCH ×2 (08:39→20:04)
[2018-02-22] MEDS: Multivitamin W/ Minerals 1 TAB PO SCH (08:39)
[2018-02-22] MEDS: Sevelamer Carbonate 800 MG TAB PO SCH ×2 (08:39→15:56)
[2018-02-22] MEDS ORDERED: Heparin 1,000 UNITS/ML VIAL ONE (11:11)
--- NOTE | 2018-02-22 14:12 | PDOC.PN ---
- Subjective Encounter Start Date: 02/22/18 Encounter Start Time: 10:30 Subjective: pt up in bed no complains - Objective Vital Signs & Weight: Vital Signs (12 hours) Temp Pulse Resp BP BP Pulse Ox 02/22/18 11:15 98.2 F 80 18 141/75 H 99 02/22/18 08:39 78 02/22/18 08:38 78 02/22/18 07:20 98.6 F 78 16 149/74 H 97 02/22/18 07:10 75 16 02/22/18 03:28 98.5 F 75 18 149/75 H 98 Weight Weight 242 lb 8 oz I&O: 02/21/18 02/22/18 02/23/18 06:59 06:59 06:59 Intake Total 200 Output Total 150 Balance 50 Result Diagrams: 02/17/18 04:05 02/21/18 06:50 Additional Labs: Accuchecks 02/22/18 02/22/18 02/21/18 11:18 05:53 20:32 POC Glucose 200 H 121 H 174 H 02/21/18 16:58 POC Glucose 176 H Phys Exam - Physical Examination Neck: no nodes, no JVD, supple, full ROM Respiratory: no wheezing, no rales, no rhonchi, wheezing present, clear to auscultation bilateral Cardiovascular: RRR, no significant murmur, no rub, gallop, irregular Gastrointestinal: soft, non-tender, no distention, positive bowel sounds Dx/Plan (1) Dyspnea Code(s): R06.00 - DYSPNEA, UNSPECIFIED Status: Acute Qualifiers: Dyspnea type: shortness of breath Qualified Code(s): R06.02 - Shortness of breath; R06.00 - Dyspnea, unspecified; R06.01 - Orthopnea Comment: diuresis (2) ESRD (end stage renal disease) Code(s): N18.6 - END STAGE RENAL DISEASE Status: Acute Comment: LEFT IJ tunnled cather placed. UF removal to address volume overload and electrolytes. Pending OP dialysis placement. Plans for AVF today (3) Diabetes mellitus type 2 Code(s): E11.9 - TYPE 2 DIABETES MELLITUS WITHOUT COMPLICATIONS Status: Chronic Comment: continue mod sliding scale - Plan spoke with nephrology will do dialysis today -: will discharge in am * . Review of Systems - Review of Systems Respiratory: negative: Cough, Dry, Shortness of Breath, Hemoptysis, SOB with Excertion, Pleuritic Pain, Sputum, Wheezing Cardiovascular: negative: chest pain, palpitations, orthopnea, paroxysmal nocturnal dyspnea, edema, light headedness, other Gastrointestinal: negative: Nausea, Vomiting, Abdominal Pain, Diarrhea, Constipation, Melena, Hematochezia, Other Genitourinary: negative: Dysuria, Frequency, Incontinence, Hematuria, Retention , Other - Medications/Allergies Allergies/Adverse Reactions: Allergies Allergy/AdvReac Type Severity Reaction Status Date / Time No Known Allergies Allergy Verified 02/15/18 23:09 Medications: Current Medications Acetaminophen (Tylenol) 1,000 mg PO Q6H PRN PRN Reason: Moderate to Severe Pain (6-10) Hydrocodone Bitart/Acetaminophen ([place] 10/325) 1 tab PO TID PRN PRN Reason: Pain > 3 Last Admin: 02/21/18 12:57 Dose: 1 tab Albuterol Sulfate (Ventolin) 7.5 mg NEB Q4H PRN PRN Reason: SOB &/or Wheezing Allopurinol (Zyloprim) 100 mg PO DAILY [facility] Last Admin: 02/22/18 08:38 Dose: 100 mg Amlodipine Besylate (Norvasc) 10 mg PO DAILY [facility] Last Admin: 02/22/18 08:39 Dose: 10 mg Aspirin (Ecotrin) 325 mg PO DAILY [facility] Last Admin: 02/22/18 08:39 Dose: 325 mg Atorvastatin Calcium (Lipitor) 40 mg PO HS [facility] Last Admin: 02/21/18 20:27 Dose: 40 mg Carvedilol (Coreg) 25 mg PO BID [facility] Last Admin: 02/22/18 08:39 Dose: 25 mg Cholecalciferol (Vitamin D3) 5,000 units PO DAILY [facility] Last Admin: 02/22/18 08:38 Dose: 5,000 units Dextrose/Water (Dextrose 50%) 25 gm IVP PRN PRN PRN Reason: HYPOGLYCEMIA PROTOCOL Fluticasone Propionate (Flonase Nasal [place]) 0 gm NASAL DAILY PRN PRN Reason: Allergies Last Admin: 02/18/18 20:55 Dose: 2 spray Gabapentin (Neurontin) 600 mg PO DAILY [facility] Last Admin: 02/22/18 08:37 Dose: 600 mg Glucagon (Glucagon) 1 mg IM PRN PRN PRN Reason: HYPOGLYCEMIA PROTOCOL Hydralazine HCl (Apresoline) 100 mg PO TID [facility] Last Admin: 02/22/18 08:38 Dose: 100 mg Dextrose/Water (D5w) 1,000 mls @ 0 mls/hr IV INF PRN PRN Reason: HYPOGLYCEMIA PROTOCOL Insulin Human Lispro (Humalog) 0 units SC .MODERATE SLIDING SC PRN; Protocol PRN Reason: MODERATE SLIDING SCALE Ipratropium [place] (Atrovent 0.06% Nasal Inhaler) 0 ml EA NARE TIDPRN PRN PRN Reason: ALLERGIC RHINITIS Ipratropium [place] (Atrovent) 2.5 ml NEB Q8H PRN PRN Reason: SOB &/or Wheezing Iron/Minerals/Multivitamins (Theragran M) 1 tab PO DAILY [facility] Last Admin: 02/22/18 08:39 Dose: 1 tab Isosorbide Mononitrate (Imdur) 60 mg PO TID [facility] Last Admin: 02/22/18 08:39 Dose: 60 mg Mometasone Furoate/Formoterol Fumar (Dulera 200 Mcg/5 Mcg Inhaler) 2 puff INH BID-RT [facility] Last Admin: 02/22/18 07:10 Dose: 2 puff Read Ppd Test Site 0 each PO 0 [facility] Stop: 02/22/18 23:59 Read Ppd Test Site 0 each PO 0 [facility] Stop: 02/23/18 23:59 Ondansetron HCl (Zofran) 4 mg IVP Q6H PRN PRN Reason: Nausea/Vomiting Probenecid/Colchicine 500mg/0. 5mg Tablet 0 each PO BID [facility] Last Admin: 02/22/18 08:37 Dose: 1 each Senna/Docusate Sodium (Senokot S) 2 tab PO BID PRN PRN Reason: Constipation Senna/Docusate Sodium (Senokot S) 1 tab PO BID [facility] Last Admin: 02/22/18 08:39 Dose: 1 tab Sevelamer Carbonate (Renvela) 400 mg PO BID-WM [facility] Last Admin: 02/22/18 08:39 Dose: 400 mg Tamsulosin HCl (Flomax) 0.4 mg PO HS [facility] Last Admin: 02/21/18 20:27 Dose: 0.4 mg Torsemide (Demadex) 100 mg PO DAILY [facility] Last Admin: 02/22/18 08:37 Dose: 100 mg Tramadol HCl (Ultram) 50 mg PO Q6H PRN PRN Reason: Mild-Moderate Pain (1-5) Tramadol HCl (Ultram) 100 mg PO Q6H PRN PRN Reason: Moderate to Severe Pain (6-10)
--- NOTE | 2018-02-22 18:17 | PRG ---
DATE OF SERVICE: 02/22/2018 SUBJECTIVE: Patient was seen and examined at bedside and overnight events noted. Patient denies any shortness of breath or chest pain or palpitation. No history of nausea or vomiting or diarrhea or f ever or chills or cramps. OBJECTIVE: GENERAL: This is a obese male in no apparent distress. VITAL SIGNS: Temperature . HEENT: Atraumatic, normocephalic. Oral mucosa is moist. NECK: Supple. CARDIOVASCULAR: S1, S2 heard. Rate and rhythm regular. RESPIRATORY: Clear to auscultation. GASTROINTESTINAL: Abdomen is soft. MUSCULOSKELETAL: No tenderness. No edema. DERMATOLOGIC: No skin rash. NEUROLOGIC: Alert and awake and oriented x3. No focal neurologic deficits. Moving all the extremiti es. PSYCHIATRIC: Mood and affect normal. LABORATORY DATA: No labs done today. ASSESSMENT AND PLAN: End-stage renal disease, continue .
[2018-02-22] MEDS: Tamsulosin HCl 0.4 MG CAP PO SCH (20:04)
[2018-02-22] MEDS: Atorvastatin Calcium 40 MG TAB PO SCH (20:04)
[2018-02-22] MEDS: HYDROcodone/Acetaminophen 10/325 mg Tablet PO PRN (20:04)
[2018-02-22] MEDS ORDERED: READ PPD TEST SITE PO SCH (22:30)
[2018-02-23] MEDS: Mometasone/Formoterol 120 PUFF INHALER INH SCH (07:23)
[2018-02-23] MEDS: Torsemide 100 MG TAB PO SCH (08:31)
[2018-02-23] MEDS: Sevelamer Carbonate 800 MG TAB PO SCH (08:31)
[2018-02-23] MEDS: Allopurinol 100 MG TAB PO SCH (08:31)
[2018-02-23] MEDS: Multivitamin W/ Minerals 1 TAB PO SCH (08:32)
[2018-02-23] MEDS: Aspirin 325 mg Enteric Coated Tablet PO SCH (08:32)
[2018-02-23] MEDS: hydrALAZINE 25 MG TAB PO SCH (08:32)
[2018-02-23] MEDS: Gabapentin 300 MG CAP PO SCH (08:33)
[2018-02-23] MEDS: HYDROcodone/Acetaminophen 10/325 mg Tablet PO PRN (08:34)
[2018-02-23] MEDS: Senokot S 8.6-50 MG TAB PO SCH (08:36)
[2018-02-23] MEDS: PROBENECID PO SCH (08:36)
[2018-02-23] MEDS: Amlodipine 10 MG TAB PO SCH (08:36)
[2018-02-23] MEDS: Carvedilol 25 MG TAB PO SCH (08:36)
[2018-02-23] MEDS: COLCHICINE PO SCH (08:36)
[2018-02-23 11:37] VITALS: TEMP 98.2
--- NOTE | 2018-02-23 12:30 | PRG ---
DATE OF SERVICE: 02/23/2018 SUBJECTIVE: Patient was seen and examined at bedside and overnight events noted. Patient denies any shortness of breath or chest pain or palpitation. No history of nausea or vomitin g or diarrhea or fever or chills or cramps. OBJECTIVE: GENERAL: This is a morbidly obese male in no apparent distress. VITAL SIGNS: Temperature 99.3, pulse 80, respiratory rate 18, blood pressure 137/66. HEENT: Atraumatic, normocephalic. Oral mucosa is moist. NECK: Supple. CARDIOVASCULAR: S1 and S2 heard. Rate and rhythm regular. RESPIRATORY: Clear to auscultation. GASTROINTESTINAL: Abdomen is soft. MUSCULOSKELETAL: No tenderness. No edema. DERMATOLOGIC: No skin rash. NEUROLOGIC: Alert and awake and oriented x3. No focal neurologic deficits. Moving all the extremit ies. PSYCHIATRIC: Mood and affect normal. LABORATORY DATA: Not done today. ASSESSMENT AND PLAN: 1. End-stage renal disease. Continue dialysis. 2. Edema, controlled. 3. Hypertension. 4. Anemia. 5. Morbid obesity. We will continue dialysis as tolerated.
[2018-02-23 12:50] VITALS: BP 176/84
[2018-02-23] MEDS ORDERED: READ PPD TEST SITE PO SCH (22:30)
--- NOTE | 2018-02-24 21:18 | DIS ---
DATE OF ADMISSION: 02/16/2018 DATE OF DISCHARGE: 02/23/2018 DISCHARGE DIAGNOSES: As of the followin. Dyspnea. 2. End-stage renal disease. 3. Diabetes. 4. Hepatitis C positive. HOSPITAL COURSE: The patient is a very pleasant 52-year-old male who was sent from [facility] for dialysis due to chronic kidney disease and worsening renal function. The patient was admitt ed, also was seen by Surgery to put in a tunnel catheter and also a fistula for future dialysis. Selma leslie also was seen by Nephrology and dialysis was initiated in the hospital. The patient did have an echocardiogram which indicated an EF of 55% -60% with suggestive diastolic dysfunction and left atri um was mildly dilated. The patient continued to improve throughout the hospital stay. He had no sig nificant complications. His hepatitis levels were checked B and C, and his hepatitis C was positive. I have discussed this with the patient and the patient's and recommended to follow up with GI, which I have provided a number for. I also educated the patient on exercise, diet and no alcohol us e. Patient will follow up with his primary care doctor, his Nephrology and also have given a name nohemy AYALA. HOME MEDICATIONS: Aspirin 81 mg daily, Lasix 40 mg daily, Renvela 400 mg b.i.d., hydralazine 100 mg t.i.d., isosorbide 60 t.i.d., amlodipine 10 daily, Neurontin 1 daily, magnesium 1 daily, Symbicort 2 puffs b.i.d., Coreg 25 b.i.d., vitamin D3 5000 units daily, tamsulosin 0.4 mg at bedtime, allopurinol 100 mg daily, atorvastatin 40 mg daily, and stool softeners 1 p.o. daily. The patient has been seen and examined. I spent a significant amount of time explaining to the patie nt and the patient's family in terms of the disease for hepatitis C and also for his diet, exercise a nd adherence to his blood pressure medications. Patient will follow up again as I mentioned with Nep hrology with his vascular surgeon, also with his primary care doctor and the GI doctor.
--- NOTE | 2018-02-26 11:15 | PQF ---
LAUREN FLYNN MAGEN AVILES [id number] [facility]-262 [id number] CLINICAL DOCUMENTATION CLARIFICATION FORM: POST DISCHARGE DATE: 02/26/2018 ATTN: Dr. Wesley Please exercise your independent, professional judgment in responding to the clarification form. Clinical indicators are provided on the bottom of this form for your review Please clarify cause of patient's fluid overload as: Please check appropriate box(s): HEART FAILURE: A. TYPE: [ ] Systolic / HFrEF [ ] Diastolic / HFpEF [ ] Combined Systolic / Diastolic B. ACUITY [ ] Acute [ ] Acute on Chronic [ ] Chronic [ x} Fluid overload due to end stage renal disease [ ] Other diagnosis (please specify) [ ] Unable to determine In addition, please specify: Present on Admission (POA): [x ] Yes [ ] No [ ] Unable to determine For continuity of documentation, please document condition throughout progress notes and discharge summary. Thank You. CLINICAL INDICATORS - SIGNS / SYMPTOMS / LABS (per H&P/labs) Shortness of breath. Bilateral lower extremity swelling. Elevated BNP of 423.2 on 02/15/18. CXR results--Mild pulmonary vascular congestion. RISKS:(per H&P) ESRD. Hypertension. Congestive heart failure. TREATMENTS: (per progress notes) IV Lasix. is form is maintained as a part of the permanent medical record) 2014 [employer]. All Rights Reserved [email or web address] [phone] MTDD
--- NOTE | 2018-02-28 13:29 | EKG ---
Test Reason : SOB Blood Pressure : / mmHG Vent. Rate : 087 BPM Atrial Rate : 087 BPM P-R Int : 162 ms QRS Dur : 078 ms QT Int : 376 ms P-R-T Axes : 018 029 072 degrees QTc Int : 452 ms Normal sinus rhythm Nonspecific T wave abnormality Abnormal ECG Confirmed by AALIYAH MABRY ([id number]), advertising editor SHABNAM HATCH ([id number]) on 02/28/2018 1:28:43 PM Referred By: Confirmed By:AALIYAH MABRY
== END 2018-02-23 14:49 | disposition home or self-care (01) | DRG 264 ==
LOC: ERS 18:01 → 2SE 19:40 → 2NO 02-17 15:38
PROVIDERS: ADMIT Family Medicine; ATTEND Family Medicine
PROC: 0JH63XZ Insertion of Tunneled Vascular Access Device into Chest Subcutaneous Tissue and Fascia, Percutaneous Approach (ICD-10-PCS; 2018-02-18)
PROC: 02HV33Z Insertion of Infusion Device into Superior Vena Cava, Percutaneous Approach (ICD-10-PCS; 2018-02-18)
PROC: 02HV33Z Insertion of Infusion Device into Superior Vena Cava, Percutaneous Approach (ICD-10-PCS; 2018-02-18)
PROC: 5A1D70Z Performance of Urinary Filtration, Intermittent, Less than 6 Hours Per Day (ICD-10-PCS; 2018-02-18)
PROC: 5A1D70Z Performance of Urinary Filtration, Intermittent, Less than 6 Hours Per Day (ICD-10-PCS; 2018-02-19)
PROC: 031B0ZF Bypass Right Radial Artery to Lower Arm Vein, Open Approach (ICD-10-PCS; principal; 2018-02-20)
PROC: 5A1D70Z Performance of Urinary Filtration, Intermittent, Less than 6 Hours Per Day (ICD-10-PCS; 2018-02-21)
PROC: 5A1D70Z Performance of Urinary Filtration, Intermittent, Less than 6 Hours Per Day (ICD-10-PCS; 2018-02-22)
DX: I13.2 Hypertensive heart and chronic kidney disease with heart failure and with stage 5 chronic kidney disease, or end stage renal disease (principal); N18.6 End stage renal disease; I50.32 Chronic diastolic (congestive) heart failure; Z68.42 Body mass index [BMI] 45.0-49.9, adult; E87.70 Fluid overload, unspecified; I42.9 Cardiomyopathy, unspecified; E11.22 Type 2 diabetes mellitus with diabetic chronic kidney disease; E66.01 Morbid (severe) obesity due to excess calories; J44.9 Chronic obstructive pulmonary disease, unspecified; G47.39 Other sleep apnea; N40.0 Benign prostatic hyperplasia without lower urinary tract symptoms; E78.5 Hyperlipidemia, unspecified; D63.1 Anemia in chronic kidney disease; B19.20 Unspecified viral hepatitis C without hepatic coma; Z87.891 Personal history of nicotine dependence; Z79.82 Long term (current) use of aspirin; Z79.899 Other long term (current) drug therapy
CPT/HCPCS: 36415; 36416; 71045; 80048; 80061; 82553; 82947; 83036; 83690; 83880; 84484; 85025; 85610; 86580; 86704; 86706; 86803; 87340; 87522; 90935; 93005; 93306; 93798; 93970; 94664; 96374; 96375; C1752; C1769; G0257; G0365; J0670; J1644; J1650; J1940; J2001; J2250; J2270; J2405; J2704; J2720; J3010

== ENCOUNTER 2018-03-15 14:35 | Inpatient (IN) | payer MEDICARE ==
[2018-03-15 15:03] LABS: Base Excess-Venous 4.2 mmol/L (0 (+/- 2.5)); Bicarbonate (HCO3v) 26.9 mmol/L (22.0-29.0); CO2 Tension (PvCO2) 32.3 mmHg (41.0-51.0); Calcium, Ionized 0.93 mmol/L (1.12-1.32); Hemoglobin - Calc 9.6 g/dL (12.0-18.0); Lactate 0.87 mmol/L (0.50-2.20); O2 Tension (PvO2) 80.9 mmHg (35.0-45.0); Potassium 4.4 mmol/L (3.4-4.7); T. Carbon Dioxide 27.9 mmol/L (1.0-85.0); pH (Venous) 7.529 (7.35-7.45); vO2 Saturation-calc 97.2 % (94-98)
[2018-03-15 15:12] LABS: #Lymphocytes 1.1 thou/uL (1.20-3.40); #Monocytes 1.6 thou/uL (0.11-0.59); #Neutrophils 10.8 thou/uL (1.40-6.50); %Basophils 0.2 % (0.0-1.0); %Lymphocytes 8.3 % (21.0-51.0); %Monocytes 11.7 % (0.0-10.0); %Neutrophils 79.8 % (42.0-75.0); Hemoglobin 8.8 g/dL (14.0-18.0); Mean Corpuscular HGB CONC 30.8 g/dL (32.0-36.0); Mean Corpuscular Hemoglobin 29.8 pg (27.0-31.0); Mean Corpuscular Volume 96.8 fL (78.0-98.0); Mean Platelet Volume 7.7 fL (7.4-10.4); Platelet Count 278 thou/uL (130-400); RBC Distribution Width 13.9 % (11.5-14.5); Red Blood Cell (RBC) Count 2.95 mill/uL (4.70-6.10); White Blood Cell (WBC) Count 13.5 thou/uL (4.8-10.8)
[2018-03-15 15:34] LABS: ALT (SGPT) 20 U/L (8-55); AST (SGOT) 28 U/L (5-34); Albumin 3.3 g/dL (3.5-5.0); Alkaline Phosphatase 113 U/L (40-150); Anion Gap 20 mmol/L (10-20); BUN (Urea Nitrogen) 58 mg/dL (8.4-25.7); Bilirubin, Total 1.2 mg/dL (0.2-1.2); Calc. Creatinine Clearance 0 mL/min (70-130); Carbon Dioxide 27 mmol/L (22-29); Chloride 91 mmol/L (98-107); Estimated GFR-MDRD 8; Globulin 3.9 g/dL (2.4-3.5); Glucose 259 mg/dL (70-105); Potassium 4.6 mmol/L (3.5-5.1); Protein, Total 7.2 g/dL (6.0-8.3); Sodium 133 mmol/L (136-145)
--- NOTE | 2018-03-15 15:41 | RAD ---
CHEST ONE VIEW: 03/15/18 HISTORY: Dialysis patient. Bodyaches and chills. Possible infection. COMPARISON: 02/18/18 FINDINGS: Portable upright chest demonstrates a right sided hemosplit dialysis catheter unchanged in position. Normal cardiac silhouette. The pulmonary vessels and hilum are normal. Costophrenic angles are clear. No masses or consolidation. No pneumothorax or osseous abnormalities. IMPRESSION: No acute cardiopulmonary process. POS: [facility]
[2018-03-15] MEDS ORDERED: Piperacillin/Tazobactam 3.375 GM VIAL ONE (16:36)
[2018-03-15] MEDS ORDERED: Acetaminophen 500 MG TAB ONE (16:36)
[2018-03-15] MEDS ORDERED: Senokot S 8.6-50 MG TAB PO PRN (16:49)
[2018-03-15] MEDS ORDERED: Dextrose 5% in Water 1,000 ML IV PRN (17:00)
[2018-03-15] MEDS ORDERED: Sodium Chloride 0.9% 500 ML IV SCH (17:00)
[2018-03-15] MEDS ORDERED: Dextrose 50% Abboject 50 ML SYRINGE SLOW IVP PRN (17:00)
[2018-03-15] MEDS ORDERED: Vancomycin HCl 500 MG VIAL ONE (17:30)
[2018-03-15 19:23] VITALS: BMI 41.3
--- NOTE | 2018-03-15 19:23 | RAD ---
THREE VIEWS LEFT HAND: 03/15/18 HISTORY: Left hand pain. FINDINGS: There is joint space narrowing involving the interphalangeal joint of the thumb with irregularity kevin ng the articular surfaces. A few tiny erosions are seen at the distal aspect of the third metacarpal head as well as distal aspect of the proximal phalanx of the middle finger. Similar small erosions ar e seen at the proximal interphalangeal joint of the left index finger. Lucencies are seen in the malgorzata te bone. Exact etiology for these lucencies and mild erosions is uncertain. There is prominent subcut aneous soft tissue swelling seen at the dorsal aspect of the hand and distal wrist. IMPRESSION: 1. Mild nonspecific osseous erosions which may be inflammatory or metabolic in etiology. 2. No acute osseous abnormality. 3. Prominent subcutaneous soft tissue swelling dorsal aspect of the hand. POS: [facility]
[2018-03-15] MEDS ORDERED: Vancomycin HCl 1 GM in Premix Bag 1 BAG IVPB SCH (21:00)
[2018-03-15] MEDS: Atorvastatin Calcium 40 MG TAB PO SCH (21:47)
[2018-03-15] MEDS: Acetaminophen 325 MG TAB PO PRN (21:47)
[2018-03-15] MEDS: Lactated Ringer's 500 ML IV SCH ×2 (21:53→23:12)
--- NOTE | 2018-03-15 23:06 | CON ---
DATE OF CONSULTATION: TYPE OF CONSULTATION: Nephrology REASON FOR CONSULTATION: End-stage renal disease. HISTORY OF PRESENT ILLNESS: This is a very pleasant 52-year-old gentleman, who presented for dialysis with a fever of 103, chills, and rigors. The patient denied headache, numbness, tingling, or weakness. Denied any nausea, vomiting, or chest pain. The patient had not had dialysis blood pressure was a little low, so he was sent to the emergency room for further evaluation and workup. PAST MEDICAL HISTORY: Significant for, 1. End-stage renal disease. 2. Hypertension. 3. Anemia. 4. Diabetes mellitus. 5. Morbid obesity. 6. Coronary artery disease. 7. Congestive heart failure. 8. Neck surgery. 9. COPD. FAMILY HISTORY: Positive for ESRD. ALLERGIES: REVIEWED. MEDICATIONS: Home medication list reviewed. REVIEW OF SYSTEMS: A 15-point review of systems was performed and negative except for positives noted above. NECK: No swelling or lumps. NOSE: No epistaxis or discharge. EYES: No diplopia or pain. MUSCULOSKELETAL: No joint pain. NEUROPSYCHIATRIC SYSTEMS: No suicidal ideation. No ideation. SKIN: Denies any rash or ulcer. CONSTITUTIONAL: No fever or chills. PHYSICAL EXAMINATION: GENERAL: The patient is awake and alert. VITAL SIGNS: Afebrile, , breathing 16, and blood pressure 123/65. GENERAL APPEARANCE AND MENTAL STATUS: Fair. HEAD/NECK: Normocephalic. Atraumatic. EYES: EOMI. No deformity. EARS: Clear. No ulcers. NOSE: Intact. No lesions. MOUTH: Clear. No discharge. THROAT: Clear. No exudate. LUNGS: Clear. No crackles. CARDIAC: S1, S2. No rub. ABDOMEN: Benign. Bowel sounds positive. GENITALIA/RECTUM: Gimenez absent. BACK/EXTREMITIES: Edema 0+. NEUROLOGICAL: Alert and motor intact. LABORATORY DATA: Show potassium is 4.4. Hemoglobin is 8.8. ASSESSMENT AND PLAN: 1. Stage 3 chronic kidney disease, plan dialysis tomorrow. 2. Hypertension, stable. 3. Anemia, stable. 4. Line sepsis versus other etiology, management per primary team. Job ID: [id number]
[2018-03-15] MEDS: HumaLOG 300 UNITS/3 ML VIAL SC PRN (23:44)
[2018-03-16] MEDS: HYDROcodone/Acetaminophen 10/325 mg Tablet PO PRN ×3 (00:46→16:38)
--- NOTE | 2018-03-16 01:01 | HP ---
CHIEF COMPLAINT: Fever and chills. HISTORY OF PRESENT ILLNESS: The patient is a very pleasant 52-year-old male with a past medical history of end-stage renal disease on dialysis which was started recently last month, hypertension, hyperlipidemia, and gout, who presented to the hospital with complaints of fevers and chills. Furthermore, the patient stated that he has not been feeling well since Sunday. The patient stated that on Sunday, he started having generalized body aches and pains, felt a little feverish, however, did not take the temperature at home. He also had some chills at home. The patient stated that this continued throughout the week. However, when he went to dialysis today, he was found to have a very low blood pressure and had a temperature, so he was brought into the ER for further evaluation. The patient denies any diarrhea or any cough or upper respiratory tract symptoms. The patient stated that he has just been having generalized body aches and pains and chills since Sunday. The patient does have a fistulogram in his right arm and he does have a tunneled catheter on his right chest wall area. PAST MEDICAL HISTORY: Is as of the following; 1. Hypertension. 2. End-stage renal disease, on dialysis. 3. Gout. 4. Obesity. 5. COPD. 6. Chronic back pain. 7. Diabetes. PAST SURGICAL HISTORY: Neck surgery in 2017. REVIEW OF SYSTEMS: All negative for the ones mentioned above in the HPI. FAMILY HISTORY: Significant for several family members with coronary artery disease and chronic kidney disease. ALLERGIES: HE HAS NO KNOWN DRUG ALLERGIES. MEDICATIONS: Are as of the following; 1. Allopurinol 100 mg daily. 2. Norvasc 10 mg daily. 3. Aspirin 325 daily. 4. Lipitor 40 mg at bedtime. 5. Coreg 25 mg b.i.d. 6. Lasix 80 mg daily. 7. Gabapentin 600 mg daily. 8. Hydralazine 100 mg t.i.d. 9. Imdur 60 mg t.i.d. 10. There was a combination that he was on probenecid and colchicine, which has been discontinued. 11. He is only on allopurinol as of now. 12. Stool softener 1 p.o. daily. 13. Symbicort 160/4.5 two puffs twice a day. 14. Flomax 0.4 mg at bedtime. PHYSICAL EXAMINATION: VITAL SIGNS: Are as of the following; his temperature was 103.2, blood pressure 143/70, respirations are 22, 97% on room air. GENERAL: The patient is awake, alert, and oriented x3, however, appears ill. CV: S1 and S2 present. No murmurs, rubs, or gallops. LUNGS: Clear to auscultation. No rhonchi or wheezes noted. ABDOMEN: Obese. Bowel sounds are present x2. Appears that the patient might have an abdominal hernia. EXTREMITIES: Mild pedal pulses present x2 bilaterally. MUSCULOSKELETAL: The patient does complain of right hand and left hand joint pains. No redness or erythema has been noted. He does have some tenderness on palpation of both his right and left carpal bones. NEUROLOGICAL: Intact. No focal deficits noted. SKIN: No cuts or lesions noted. His line on the right side does not have any erythema around it or redness. No pain upon palpation. His fistula has a good bruit and a good thrill, and the incision looks healed on his right hand. LABORATORY RESULTS: Are as of the following; WBCs of 13.5, hemoglobin of 8.8, hematocrit of 28.6, platelets of 278. Chemistries; sodium of 133, potassium of 4.6, BUN of 50, creatinine 8.71, sugar is 259. Lactic acid was 0.9. The patient had blood cultures drawn and also had a chest x-ray, which indicated no acute cardiopulmonary process. ASSESSMENT AND PLAN: The patient is a very pleasant 52-year-old male, who presents to the hospital with fevers and chills. 1. Sepsis. The patient's blood pressure currently is stable. However, in the dialysis, he was noted to have hypotension. He has been given some IV hydration by the ER, and I will give him another 500 mg bolus here. I have encouraged him to take p.o. fluids as much as he can. We will hold off all the diuretic and all the antihypertensives since his blood pressure is very marginal. We will start the patient on vancomycin and Zosyn, broad spectrum. His blood cultures have been collected. His nasal swab for influenza that was done, was negative. Most likely, this could be bacteremia from line infection. However, there was no redness or erythema around the incision of the catheter site. 2. End-stage renal disease, on dialysis. We will consult Nephrology. The patient goes to dialysis Mondays, Wednesdays, and Fridays. 3. Hypertension. Currently, blood pressure is marginal. We will hold antihypertensives. 4. Diabetes. We will put the patient on a sliding scale for now and check Accu-Cheks before meals and at bedtime. 5. Deep vein thrombosis prophylaxis. We will put the patient on subcu heparin. Job ID: [id number]
[2018-03-16] MEDS: Piperacillin/Tazobactam 2.25 GM in Sodium Chloride 0.9% 100 ML IVPB SCH ×2 (05:31→16:34)
[2018-03-16 06:27] LABS: #Basophils 0.1 thou/uL (0.0-0.2); #Eosinphils 0.1 thou/uL (0.0-0.7); #Lymphocytes 1.3 thou/uL (1.20-3.40); #Monocytes 1.2 thou/uL (0.11-0.59); #Neutrophils 8.1 thou/uL (1.40-6.50); %Basophils 0.5 % (0.0-1.0); %Eosinophils 0.5 % (0.0-10.0); %Monocytes 11.1 % (0.0-10.0); Hemoglobin 8.1 g/dL (14.0-18.0); Mean Corpuscular Hemoglobin 31.2 pg (27.0-31.0); Mean Corpuscular Volume 97.6 fL (78.0-98.0); Mean Platelet Volume 7.9 fL (7.4-10.4); Platelet Count 270 thou/uL (130-400); RBC Distribution Width 13.8 % (11.5-14.5); Red Blood Cell (RBC) Count 2.58 mill/uL (4.70-6.10); White Blood Cell (WBC) Count 10.6 thou/uL (4.8-10.8)
[2018-03-16 06:41] LABS: Anion Gap 18 mmol/L (10-20); BUN (Urea Nitrogen) 68 mg/dL (8.4-25.7); Calc. Creatinine Clearance 14 mL/min (70-130); Calcium 8.5 mg/dL (7.8-10.44); Carbon Dioxide 26 mmol/L (22-29); Chloride 91 mmol/L (98-107); Estimated GFR-MDRD 7; Glucose 279 mg/dL (70-105); Potassium 4.3 mmol/L (3.5-5.1); Sodium 131 mmol/L (136-145)
[2018-03-16] MEDS: Allopurinol 100 MG TAB PO SCH (08:19)
[2018-03-16] MEDS ORDERED: Vancomycin HCl 1 GM in Premix Bag 1 BAG IVPB SCH (09:00)
[2018-03-16] MEDS ORDERED: HOLD VANCOMYCIN FOR LEVEL >20 FS SCH (09:00)
[2018-03-16] MEDS ORDERED: Vancomycin HCl 1.25 GM in Sodium Chloride 0.9% 250 ML 250 ML IVPB SCH (09:00)
[2018-03-16] MEDS ORDERED: Vancomycin HCl 750 MG in Sodium Chloride 0.9% 250 ML 250 ML IVPB SCH (09:00)
[2018-03-16] MEDS ORDERED: Vancomycin HCl 1.5 GM in Sodium Chloride 0.9% 250 ML 300 ML IVPB SCH (09:00)
[2018-03-16 09:40] LABS: CRP (Inflammatory) 24.98 mg/dL (= or < 0.5); Uric Acid 6.5 mg/dL (3.5-7.2)
--- NOTE | 2018-03-16 11:14 | PRG ---
DATE OF SERVICE: 03/16/2018 SUBJECTIVE: A 52-year-old gentleman, being seen for end-stage renal disease. The patient denies any nausea, vomiting, or chest pain. OBJECTIVE: VITAL SIGNS: The patient breathing at 16, blood pressure 113/57. Awake, alert, in no acute distress. GENERAL APPEARANCE AND MENTAL STATUS: Fair. HEAD/NECK: Normocephalic. Atraumatic. EYES: EOMI. No deformity. EARS: Clear. No ulcers. NOSE: Intact. No lesions. MOUTH: Clear. No discharge. THROAT: Clear. No exudate. LUNGS: Clear. No crackles. CARDIAC: S1, S2. No rub. ABDOMEN: Benign. Bowel sounds positive. GENITALIA/RECTUM: Gimenez absent. BACK/EXTREMITIES: Edema 0+. NEUROLOGICAL: Alert and motor intact. SKIN: LYMPHATICS: LABORATORY DATA: Reviewed. IMPRESSION: 1. chronic kidney disease, continue hemodialysis. 2. Hypertension, stable. 3. Anemia, stable. 4. Sepsis management per primary team. Job ID: [id number]
[2018-03-16 11:23] LABS: HBSAg Index 0.27 S/CO (0-0.99); Hep B Surf Ag Non-Reactive S/CO (NonReactive)
[2018-03-16] MEDS: HumaLOG 300 UNITS/3 ML VIAL SC PRN ×2 (12:12→20:47)
[2018-03-16] MEDS ORDERED: methylPREDNISolone 4 mg Tablet PO SCH (13:12)
--- NOTE | 2018-03-16 13:15 | PDOC.PN ---
- Subjective Encounter Start Date: 03/16/18 Encounter Start Time: 10:30 Subjective: pt up in dialysis still has pain to his left hand - Objective Resuscitation Status - Order Detail: 03/15/18 16:49 Resuscitation Status Routine Resuscitation Status: FULL: Full Resuscitation Vital Signs & Weight: Vital Signs (12 hours) Temp Pulse Resp BP BP Pulse Ox 03/16/18 12:17 99.4 F 84 17 133/71 98 03/16/18 08:14 96 03/16/18 08:00 99.6 F 83 18 113/57 L 96 03/16/18 04:00 98.4 F 81 20 104/55 L 99 Weight Weight 231 lb 5 oz I&O: 03/15/18 03/16/18 03/17/18 06:59 06:59 06:59 Intake Total 920 Output Total 100 Balance 820 Result Diagrams: 03/16/18 05:24 03/16/18 05:24 Additional Labs: Accuchecks 03/16/18 03/16/18 03/15/18 11:22 05:36 20:16 POC Glucose 212 H 296 H 296 H Phys Exam - Physical Examination Neck: no nodes, no JVD, supple, full ROM Respiratory: no wheezing, no rales, no rhonchi, wheezing present, clear to auscultation bilateral Cardiovascular: RRR, no significant murmur, no rub, gallop, irregular Gastrointestinal: soft, non-tender, no distention, positive bowel sounds Musculoskeletal: edema present right and left wrist, pain on palpation of left wrists Dx/Plan (1) Sepsis Code(s): A41.9 - SEPSIS, UNSPECIFIED ORGANISM Status: Acute (2) ESRD (end stage renal disease) Code(s): N18.6 - END STAGE RENAL DISEASE Status: Acute Comment: LEFT IJ tunnled cather placed. UF removal to address volume overload and electrolytes. Pending OP dialysis placement. Plans for AVF today (3) Diabetes mellitus type 2 Code(s): E11.9 - TYPE 2 DIABETES MELLITUS WITHOUT COMPLICATIONS Status: Chronic Comment: continue mod sliding scale (4) Left wrist pain Code(s): M25.532 - PAIN IN LEFT WRIST Status: Acute - Plan will continue iv abx -: unknow etiology of his sepsis, possible line infection -: blood cx pending -: will consult ID -: left hand xray will add steroids possible gout vs OA * . Review of Systems - Review of Systems Respiratory: negative: Cough, Dry, Shortness of Breath, Hemoptysis, SOB with Excertion, Pleuritic Pain, Sputum, Wheezing Cardiovascular: negative: chest pain, palpitations, orthopnea, paroxysmal nocturnal dyspnea, edema, light headedness, other Gastrointestinal: negative: Nausea, Vomiting, Abdominal Pain, Diarrhea, Constipation, Melena, Hematochezia, Other Musculoskeletal: Hand Pain - Medications/Allergies Allergies/Adverse Reactions: Allergies Allergy/AdvReac Type Severity Reaction Status Date / Time No Known Allergies Allergy Verified 03/15/18 20:52 Medications: Current Medications Acetaminophen (Tylenol) 650 mg PO Q4H PRN PRN Reason: Headache/Fever/Mild Pain (1-3) Last Admin: 03/15/18 21:47 Dose: 650 mg Hydrocodone Bitart/Acetaminophen ([place] 10/325) 1 tab PO TID PRN PRN Reason: Severe Pain (7-10) Last Admin: 03/16/18 08:26 Dose: 1 tab Allopurinol (Zyloprim) 100 mg PO DAILY [facility] Last Admin: 03/16/18 08:19 Dose: 100 mg Atorvastatin Calcium (Lipitor) 40 mg PO HS [facility] Last Admin: 03/15/18 21:47 Dose: 40 mg Dextrose/Water (Dextrose 50%) 25 gm SLOW IVP PRN PRN PRN Reason: Hypoglycemia Glucagon (Glucagon) 1 mg IM PRN PRN PRN Reason: Hypoglycemia Piperacillin Sod/Tazobactam (Sod 2.25 gm/ Sodium Chloride) 100 mls @ 200 mls/ hr IVPB 0500,1700 [facility] Last Admin: 03/16/18 05:31 Dose: 100 mls Dextrose/Water (D5w) 1,000 mls @ 0 mls/hr IV .Q0M PRN PRN Reason: Hypoglycemia Lactated Ringer's (Lactated Ringer's) 500 mls @ 50 mls/hr IV .Q10H [facility] Last Admin: 03/15/18 23:12 Dose: 500 mls Vancomycin HCl 1.5 gm/ Sodium (Chloride) 300 mls @ 200 mls/hr IVPB WILLCALL YANI Vancomycin HCl 1.25 gm/ Sodium (Chloride) 250 mls @ 166.667 mls/hr IVPB WILLCALL [facility] Vancomycin HCl 1 gm/ Device 200 mls @ 200 mls/hr IVPB WILLCALL [facility] Vancomycin HCl 750 mg/ Sodium (Chloride) 250 mls @ 250 mls/hr IVPB WILLCALL [facility] Insulin Human Isoph/Insulin Regular (Humulin 70/30) 8 units SC BID-AC [facility] Insulin Human Lispro (Humalog) 0 units SC .MILD SLIDING SCALE PRN PRN Reason: Mild Correctional Scale Last Admin: 03/16/18 12:12 Dose: 3 unit Insulin Human Lispro (Humalog) 0 units SC .BEDTIME SLIDING SC PRN; Protocol PRN Reason: BEDTIME SLIDING SCALE Methylprednisolone (Medrol Dospak) 4 mg PO DAILY [facility] Miscellaneous Medication (Pharmacy To Dose) 1 each IVPB PRN PRN PRN Reason: Pharmacy to dose Hold Vancomycin For (Level >20) 0 each FS .AT DIALYSIS [facility] Senna/Docusate Sodium (Senokot S) 2 tab PO BIDPRN PRN PRN Reason: Constipation Sodium Chloride (Flush - Normal Saline) 10 ml IVF Q12HR [facility] Last Admin: 03/16/18 08:21 Dose: Not Given Sodium Chloride (Flush - Normal Saline) 10 ml IVF PRN PRN PRN Reason: Saline Flush
[2018-03-16] MEDS: methylPREDNISolone 4 mg Tablet PO SCH ×3 (14:47→20:34)
[2018-03-16] MEDS ORDERED: Insulin NPH/Reg Insulin Hm 300 UNITS/3 ML VIAL SC SCH (16:30)
[2018-03-16] MEDS: Acetaminophen 325 MG TAB PO PRN (16:38)
[2018-03-16] MEDS: Lactated Ringer's 500 ML IV SCH ×2 (18:26→20:34)
[2018-03-16] MEDS: Atorvastatin Calcium 40 MG TAB PO SCH (20:34)
[2018-03-17] MEDS: Acetaminophen 325 MG TAB PO PRN (03:40)
[2018-03-17] MEDS: Piperacillin/Tazobactam 2.25 GM in Sodium Chloride 0.9% 100 ML IVPB SCH ×2 (03:41→17:52)
[2018-03-17] MEDS: Insulin NPH/Reg Insulin Hm 300 UNITS/3 ML VIAL SC SCH ×2 (07:40→18:03)
[2018-03-17] MEDS: methylPREDNISolone 4 mg Tablet PO SCH ×3 (07:45→17:52)
[2018-03-17] MEDS: HumaLOG 300 UNITS/3 ML VIAL SC PRN ×4 (09:11→21:22)
[2018-03-17] MEDS: Allopurinol 100 MG TAB PO SCH (09:12)
[2018-03-17] MEDS: HYDROcodone/Acetaminophen 10/325 mg Tablet PO PRN ×2 (09:24→20:04)
--- NOTE | 2018-03-17 10:02 | PDOC.PN ---
- Subjective Encounter Start Date: 03/17/18 Encounter Start Time: 08:00 Subjective: pt up in bed feels much better - Objective Resuscitation Status - Order Detail: 03/15/18 16:49 Resuscitation Status Routine Resuscitation Status: FULL: Full Resuscitation Vital Signs & Weight: Vital Signs (12 hours) Temp Pulse Resp BP Pulse Ox 03/17/18 04:03 99.0 F 74 20 129/64 98 03/17/18 00:00 97.9 F Weight Weight 225 lb 9 oz I&O: 03/16/18 03/17/18 03/18/18 06:59 06:59 06:59 Intake Total 920 400 Output Total 100 100 Balance 820 300 Result Diagrams: 03/16/18 05:24 03/16/18 05:24 Additional Labs: Accuchecks 03/17/18 03/16/18 03/16/18 05:52 20:12 16:45 POC Glucose 451 H 246 H 196 H 03/16/18 11:22 POC Glucose 212 H Phys Exam - Physical Examination Respiratory: no wheezing, no rales, no rhonchi, wheezing present, clear to auscultation bilateral Cardiovascular: RRR, no significant murmur, no rub, gallop, irregular Gastrointestinal: soft, non-tender, no distention, positive bowel sounds left hand swelling still present Psychiatric: normal affect, A&O x 3 Dx/Plan (1) Sepsis Code(s): A41.9 - SEPSIS, UNSPECIFIED ORGANISM Status: Acute (2) ESRD (end stage renal disease) Code(s): N18.6 - END STAGE RENAL DISEASE Status: Acute Comment: LEFT IJ tunnled cather placed. UF removal to address volume overload and electrolytes. Pending OP dialysis placement. Plans for AVF today (3) Diabetes mellitus type 2 Code(s): E11.9 - TYPE 2 DIABETES MELLITUS WITHOUT COMPLICATIONS Status: Chronic Comment: continue mod sliding scale (4) Left wrist pain Code(s): M25.532 - PAIN IN LEFT WRIST Status: Acute - Plan pt's left wrist pain has improved on steroids. left hand swollen- doppler -: cx still negative, per pt his right chest cath was suppose to be removed -: unknown etiology of his sepsis, ID consulted * . Review of Systems - Review of Systems Respiratory: negative: Cough, Dry, Shortness of Breath, Hemoptysis, SOB with Excertion, Pleuritic Pain, Sputum, Wheezing Cardiovascular: negative: chest pain, palpitations, orthopnea, paroxysmal nocturnal dyspnea, edema, light headedness, other Gastrointestinal: negative: Nausea, Vomiting, Abdominal Pain, Diarrhea, Constipation, Melena, Hematochezia, Other Genitourinary: negative: Dysuria, Frequency, Incontinence, Hematuria, Retention , Other - Medications/Allergies Allergies/Adverse Reactions: Allergies Allergy/AdvReac Type Severity Reaction Status Date / Time No Known Allergies Allergy Verified 03/15/18 20:52 Medications: Current Medications Acetaminophen (Tylenol) 650 mg PO Q4H PRN PRN Reason: Headache/Fever/Mild Pain (1-3) Last Admin: 03/17/18 03:40 Dose: 650 mg Hydrocodone Bitart/Acetaminophen ([place] 10/325) 1 tab PO TID PRN PRN Reason: Severe Pain (7-10) Last Admin: 03/17/18 09:24 Dose: 1 tab Allopurinol (Zyloprim) 100 mg PO DAILY [facility] Last Admin: 03/17/18 09:12 Dose: 100 mg Atorvastatin Calcium (Lipitor) 40 mg PO HS [facility] Last Admin: 03/16/18 20:34 Dose: 40 mg Dextrose/Water (Dextrose 50%) 25 gm SLOW IVP PRN PRN PRN Reason: Hypoglycemia Glucagon (Glucagon) 1 mg IM PRN PRN PRN Reason: Hypoglycemia Piperacillin Sod/Tazobactam (Sod 2.25 gm/ Sodium Chloride) 100 mls @ 200 mls/ hr IVPB 0500,1700 [facility] Last Admin: 03/17/18 03:41 Dose: 100 mls Dextrose/Water (D5w) 1,000 mls @ 0 mls/hr IV .Q0M PRN PRN Reason: Hypoglycemia Vancomycin HCl 1.5 gm/ Sodium (Chloride) 300 mls @ 200 mls/hr IVPB WILLCALL [facility] Vancomycin HCl 1.25 gm/ Sodium (Chloride) 250 mls @ 166.667 mls/hr IVPB WILLCALL [facility] Vancomycin HCl 1 gm/ Device 200 mls @ 200 mls/hr IVPB WILLCALL [facility] Vancomycin HCl 750 mg/ Sodium (Chloride) 250 mls @ 250 mls/hr IVPB WILLCALL [facility] Insulin Human Isoph/Insulin Regular (Humulin 70/30) 10 units SC BID-AC [facility] Last Admin: 03/17/18 07:40 Dose: 10 unit Insulin Human Lispro (Humalog) 0 units SC .BEDTIME SLIDING SC PRN; Protocol PRN Reason: BEDTIME SLIDING SCALE Last Admin: 03/16/18 20:47 Dose: 2 unit Insulin Human Lispro (Humalog) 0 units SC .MODERATE SLIDING SC PRN; Protocol PRN Reason: MODERATE SLIDING SCALE Last Admin: 03/17/18 09:11 Dose: 10 unit Methylprednisolone (Medrol) 4 mg PO 0800,1300,1800 [facility] Stop: 03/17/18 18:01 Last Admin: 03/17/18 07:45 Dose: 4 mg Methylprednisolone (Medrol) 8 mg PO 2100 [facility] Stop: 03/17/18 21:01 Methylprednisolone (Medrol) 4 mg PO 0800,1200,1700,2100 [facility] Stop: 03/18/18 21:01 Methylprednisolone (Medrol) 4 mg PO 0800,1200,1700 [facility] Stop: 03/19/18 17:01 Methylprednisolone (Medrol) 4 mg PO 0800,1700 [facility] Stop: 03/20/18 17:01 Methylprednisolone (Medrol) 4 mg PO 0800 [facility] Stop: 03/21/18 08:01 Miscellaneous Medication (Pharmacy To Dose) 1 each IVPB PRN PRN PRN Reason: Pharmacy to dose Hold Vancomycin For (Level >20) 0 each FS .AT DIALYSIS [facility] Senna/Docusate Sodium (Senokot S) 2 tab PO BIDPRN PRN PRN Reason: Constipation Sodium Chloride (Flush - Normal Saline) 10 ml IVF Q12HR [facility] Last Admin: 03/17/18 09:12 Dose: 10 ml Sodium Chloride (Flush - Normal Saline) 10 ml IVF PRN PRN PRN Reason: Saline Flush
[2018-03-17] MEDS ORDERED: Epoetin (ESRD) 10,000 UNITS/ML VIAL SC SCH (11:30)
--- NOTE | 2018-03-17 12:29 | PRG ---
DATE OF SERVICE: 03/17/2018 SUBJECTIVE: This is a 52-year-old gentleman, being seen for end-stage renal disease. The patient denies any nausea, vomiting, or chest pain. OBJECTIVE: GENERAL: The patient is awake and alert. VITAL SIGNS: Afebrile, pulse 78, breathing 16, and blood pressure 128/69. GENERAL APPEARANCE AND MENTAL STATUS: Fair. HEAD/NECK: Normocephalic. Atraumatic. EYES: EOMI. No deformity. EARS: Clear. No ulcers. NOSE: Intact. No lesions. MOUTH: Clear. No discharge. THROAT: Clear. No exudate. LUNGS: Clear. No crackles. CARDIAC: S1, S2. No rub. ABDOMEN: Benign. Bowel sounds positive. GENITALIA/RECTUM: Gimenez absent. BACK/EXTREMITIES: Edema 0+. NEUROLOGICAL: Alert and motor intact. SKIN: LYMPHATICS: LABORATORY DATA: None today. ASSESSMENT: 1. Stage 6 chronic kidney disease. Continue hemodialysis. 2. Hypertension, stable. 3. Anemia, stable. 4. Medication based on GFR as appropriate. We will recheck labs in the morning. Job ID: [id number]
--- NOTE | 2018-03-17 15:01 | ULT ---
LEFT UPPER EXTREITY VENOUS DOPPLER: DATE: 03/17/2018. PROVIDED CLINICAL HISTORY: Left arm edema. FINDINGS: Poole scale and color Doppler sonography with spectral analysis was performed of the left internal jug ular, subclavian, axillary, brachial, basilic, cephalic, radial, and ulnar veins, demonstrating a nor mal sonographic appearance to each. IMPRESSION: No sonographic evidence for left upper extremity deep venous thrombosis. POS: ÓSCAR
[2018-03-17] MEDS: Atorvastatin Calcium 40 MG TAB PO SCH (20:04)
[2018-03-17] MEDS ORDERED: methylPREDNISolone 4 mg Tablet PO SCH (21:00)
[2018-03-18] MEDS: Acetaminophen 325 MG TAB PO PRN (01:01)
[2018-03-18] MEDS: Piperacillin/Tazobactam 2.25 GM in Sodium Chloride 0.9% 100 ML IVPB SCH (05:09)
[2018-03-18] MEDS: HumaLOG 300 UNITS/3 ML VIAL SC PRN ×2 (06:22→13:14)
[2018-03-18 07:23] LABS: Hemoglobin 9.7 g/dL (14.0-18.0)
[2018-03-18 07:42] LABS: Anion Gap 19 mmol/L (10-20); BUN (Urea Nitrogen) 69 mg/dL (8.4-25.7); Calc. Creatinine Clearance 16 mL/min (70-130); Calcium 8.7 mg/dL (7.8-10.44); Carbon Dioxide 25 mmol/L (22-29); Chloride 90 mmol/L (98-107); Estimated GFR-MDRD 8; Glucose 460 mg/dL (70-105); Potassium 5.1 mmol/L (3.5-5.1); Sodium 129 mmol/L (136-145)
[2018-03-18 07:45] LABS: Vancomycin, Random 11.9 ug/mL (See Comment)
--- NOTE | 2018-03-18 08:37 | CON ---
DATE OF CONSULTATION: REASON FOR CONSULTATION: Fever, neutrophilia, end-stage renal disease. HISTORY OF PRESENT ILLNESS: 52-year-old patient, who has a history of end-stage renal disease, on hemodialysis through a tunneled catheter in the right IJ position; type 2 diabetes mellitus, COPD, and gout. The patient has a matured right wrist AV fistula and was just used once after admission this time. The patient was in his usual state of health until 2 days before admission when he developed body aches , sensation of fever although he did not measure it. He had some chills. Symptoms persisted and went to dialysis and was found to be hypotensive with elevated temperature, he was admitted. No headaches, visual symptoms, sore throat, odynophagia, or dysphagia. No cough or chest pain. No abdominal pain or diarrhea. No dyspnea or genitourinary symptoms. The patient has noticed pain in the left wrist. PAST MEDICAL HISTORY: Includes hypertension, end-stage renal disease, type 2 diabetes, gout, obesity, COPD, and chronic back pain. PAST SURGICAL HISTORY: Laminectomy in 2017. FAMILY HISTORY: Coronary artery disease and type 2 diabetes. ALLERGIES: NONE. MEDICATIONS: At home are, 1. Allopurinol. 2. Lipitor. 3. Coreg. 4. Lasix. 5. Gabapentin. 6. Hydralazine. 7. Imdur. 8. Symbicort. in hospital: 1. Zyloprim. 2. Lipitor. 3. Procrit. 4. Medrol. 5. Vancomycin. 6. Zosyn. PHYSICAL EXAMINATION: VITAL SIGNS: T-max 100.7, it is currently 98.3, blood pressure 130/73, pulse 80, respirations of 14, O2 sat 96%. SKIN: No areas of skin abnormality. The patient has a functional right AV fistula in the wrist and a tunneled hemodialysis catheter in right IJ position, which does not have any inflammatory changes noticeable. No lymphadenopathy. HEENT: Ocular movements conjugate. Oral cavity normal. NECK: Supple. LUNGS: Symmetric with clear breath sounds. HEART: S1 and S2. Regular rate. No S3 or S4. No murmurs. ABDOMEN: Soft. Not distended or tender. No ascites, bladder distention. EXTREMITIES: The patient has swelling and tenderness with range of motion of the left wrist. No other joints involved by inflammatory process at this time. Trace edema, lower extremities. Some evidence of stasis dermatitis. Pulses 1+ in dorsalis pedis. Moves extremities equally with some limitations because of the left wrist inflammatory process. NEUROLOGIC: Cognitive function appears to be improving. LABORATORY DATA: White cell count is down from 13.4 to 10.6, hemoglobin 8.9, platelets 270, and 76% neutrophils. PH 7.52, pCO2 of 32, pO2 of 80. Sodium 131, creatinine 9.36. Liver profile normal. Albumin 3.3. CRP is 24. Microbiology with 3sets of negative blood culture in 48 hours. IMAGING STUDIES: We have a vascular ultrasound, which showed no evidence of deep vein thrombosis, left upper extremity. There was a chest x-ray on admission with no acute cardiopulmonary process. ASSESSMENT: 1. Type 2 diabetes. 2. End-stage renal disease, on hemodialysis via a right-sided IJ tunneled hemodialysis catheter. 3. History of gout with inflammatory arthropathy, left wrist and hand. 4. Low-grade temperature elevation with mild neutrophilia. DISCUSSION: Differential diagnosis includes gout with fever, associated with inflammatory process from inflammatory arthropathy versus infectious syndrome associated with bacteremia. If the blood cultures box turner negative, I would consider gout as the more likely scenario here. Continue treating with probably an anti-inflammatory, such as colchicine adjusted for renal function. Septic arthritis is another consideration. If the blood cultures turn positive, then the diagnosis would be settled in favor of infectious syndrome. The hemodialysis catheter can be removed anyway, so I would consider consulting the surgeon for that. Probably, it could be removed before discharge planning. There is no evidence of an intraabdominal inflammatory process or genitourinary inflammatory process, no other bone or joint involvement at this point in time. Job ID: [id number] [facility]
[2018-03-18] MEDS ORDERED: Insulin NPH/Reg Insulin Hm 300 UNITS/3 ML VIAL SC SCH (08:45)
[2018-03-18] MEDS: Insulin NPH/Reg Insulin Hm 300 UNITS/3 ML VIAL SC SCH (09:48)
[2018-03-18] MEDS: methylPREDNISolone 4 mg Tablet PO SCH ×2 (09:48→12:45)
--- NOTE | 2018-03-18 12:19 | PRG ---
DATE OF SERVICE: 03/18/2018 SUBJECTIVE: Patient was seen and examined at bedside and overnight events noted. Patient denies any shortness of breath or chest pain or palpitation. No history of nausea or vomiting or diarrhea or fever or chills or cramps. OBJECTIVE: GENERAL: This is an obese male, in no apparent distress. VITAL SIGNS: Temperature 98.4. Pulse 74. Respiratory rate 17. Blood pressure 136/73. HEENT: Atraumatic, normocephalic. Oral mucosa is moist NECK: Supple. CARDIOVASCULAR: S1, S2 heard. Rate and rhythm regular. RESPIRATORY: Clear to auscultation. GASTROINTESTINAL: Abdomen is soft. MUSCULOSKELETAL: No tenderness. No edema. DERMATOLOGIC: No skin rash. NEUROLOGIC: Alert and awake and oriented X3. No focal neurologic deficits. Moving all the extremities. PSYCHIATRIC: Mood and affect normal. LABORATORY DATA: Potassium 5.1, BUN is 69, creatinine 8.2 ASSESSMENT AND PLAN: 1. End-stage renal disease. We will continue on dialysis. 2. Hypertension. 3. Anemia 4. Edema We will continue on dialysis as tolerated. Job ID: [id number] [facility]
[2018-03-18] MEDS: Allopurinol 100 MG TAB PO SCH (12:45)
[2018-03-18] MEDS: HYDROcodone/Acetaminophen 10/325 mg Tablet PO PRN (12:46)
[2018-03-18 13:53] VITALS: TEMP 98.1
[2018-03-18 13:59] LABS: Hemoglobin A1c 6.5 % (4.0-6.0)
[2018-03-18 16:09] VITALS: BP 117/61
[2018-03-19] MEDS ORDERED: methylPREDNISolone 4 mg Tablet PO SCH (08:00)
[2018-03-20] MEDS ORDERED: methylPREDNISolone 4 mg Tablet PO SCH (08:00)
--- NOTE | 2018-03-20 14:56 | EKG ---
Test Reason : SEPSIS Blood Pressure : / mmHG Vent. Rate : 097 BPM Atrial Rate : 097 BPM P-R Int : 142 ms QRS Dur : 084 ms QT Int : 334 ms P-R-T Axes : 034 041 063 degrees QTc Int : 424 ms Normal sinus rhythm Normal ECG Confirmed by GÓMEZ MCDERMOTT D.O. ([id number]), multimedia editor SHABNAM HATCH ([id number]) on 03/20/2018 2:56:46 PM Referred By: Confirmed By:GÓMEZ MCDERMOTT D.O.
[2018-03-21] MEDS ORDERED: methylPREDNISolone 4 mg Tablet PO SCH (08:00)
== END 2018-03-18 17:25 | disposition home or self-care (01) | DRG 871 ==
LOC: ERS 14:35 → 2NO 16:20
PROVIDERS: ADMIT Internal Medicine; ATTEND Internal Medicine
PROC: 5A1D70Z Performance of Urinary Filtration, Intermittent, Less than 6 Hours Per Day (ICD-10-PCS; principal; 2018-03-16)
PROC: 5A1D70Z Performance of Urinary Filtration, Intermittent, Less than 6 Hours Per Day (ICD-10-PCS; 2018-03-18)
DX: A41.9 Sepsis, unspecified organism (principal); N18.6 End stage renal disease; I12.0 Hypertensive chronic kidney disease with stage 5 chronic kidney disease or end stage renal disease; Z68.41 Body mass index [BMI] 40.0-44.9, adult; Z99.2 Dependence on renal dialysis; E78.5 Hyperlipidemia, unspecified; M10.9 Gout, unspecified; J44.9 Chronic obstructive pulmonary disease, unspecified; M54.9 Dorsalgia, unspecified; G89.29 Other chronic pain; E11.22 Type 2 diabetes mellitus with diabetic chronic kidney disease; M25.532 Pain in left wrist; D64.9 Anemia, unspecified; E03.9 Hypothyroidism, unspecified; Z79.82 Long term (current) use of aspirin; Z82.49 Family history of ischemic heart disease and other diseases of the circulatory system; Z84.1 Family history of disorders of kidney and ureter
CPT/HCPCS: 36415; 36416; 71045; 80048; 80053; 80202; 82330; 82435; 82565; 82803; 82947; 83036; 83605; 84132; 84295; 84550; 85014; 85018; 85025; 85652; 86140; 87040; 87340; 87804; 90935; 93005; 96365; 96367; 99213; G0257; G0463; J2543; J3370; J7050; Q4081

== ENCOUNTER 2018-05-22 16:39 | Observation (INO) | payer MEDICARE ==
[2018-05-22 17:59] LABS: #Basophils 0.1 thou/uL (0.0-0.2); #Eosinphils 0.1 thou/uL (0.0-0.7); #Lymphocytes 1.6 thou/uL (1.20-3.40); #Monocytes 0.8 thou/uL (0.11-0.59); #Neutrophils 5.2 thou/uL (1.40-6.50); %Eosinophils 1.3 % (0.0-10.0); %Lymphocytes 20.4 % (21.0-51.0); %Neutrophils 67.3 % (42.0-75.0); Hemoglobin 12.2 g/dL (14.0-18.0); Mean Corpuscular HGB CONC 31.7 g/dL (32.0-36.0); Mean Corpuscular Hemoglobin 31.4 pg (27.0-31.0); Mean Corpuscular Volume 99.2 fL (78.0-98.0); Mean Platelet Volume 7.5 fL (7.4-10.4); Platelet Count 259 thou/uL (130-400); Red Blood Cell (RBC) Count 3.87 mill/uL (4.70-6.10); White Blood Cell (WBC) Count 7.8 thou/uL (4.8-10.8)
[2018-05-22 18:22] LABS: ALT (SGPT) 11 U/L (8-55); AST (SGOT) 15 U/L (5-34); Albumin 3.8 g/dL (3.5-5.0); Alkaline Phosphatase 127 U/L (40-150); Anion Gap 15 mmol/L (10-20); BUN (Urea Nitrogen) 45 mg/dL (8.4-25.7); Bilirubin, Total 0.9 mg/dL (0.2-1.2); Calc. Creatinine Clearance 0 mL/min (70-130); Calcium 9.2 mg/dL (7.8-10.44); Carbon Dioxide 32 mmol/L (22-29); Chloride 95 mmol/L (98-107); Estimated GFR-MDRD 11; Glucose 218 mg/dL (70-105); Protein, Total 6.8 g/dL (6.0-8.3); Sodium 138 mmol/L (136-145)
--- NOTE | 2018-05-22 18:36 | RAD ---
CHEST TWO VIEWS: 05/22/18 HISTORY: Chest pain. COMPARISON: 09/20/15 study. Heart size is enlarged. Mediastinal structures appears unremarkable. Lungs are clear of infiltrates. There is no signs of failure. IMPRESSION: Cardiomegaly. POS: [facility]
[2018-05-22 19:56] LABS: Troponin I 0.017 ng/mL (< 0.028)
[2018-05-22 20:00] LABS: HBSAg Index 0.25 S/CO (0-0.99); Hep B Surf Ag Non-Reactive S/CO (NonReactive)
[2018-05-22] MEDS ORDERED: Tamsulosin HCl 0.4 MG CAP PO SCH (21:00)
[2018-05-22] MEDS ORDERED: Cyclobenzaprine 10 MG TAB PO PRN (21:00)
[2018-05-22] MEDS ORDERED: Atorvastatin Calcium 40 MG TAB PO SCH (21:00)
[2018-05-22] MEDS ORDERED: Dextrose 5% in Water 1,000 ML IV PRN (21:40)
[2018-05-22] MEDS ORDERED: HumaLOG 300 UNITS/3 ML VIAL SC PRN ×2 (21:40)
[2018-05-22] MEDS ORDERED: Ondansetron PF 4 MG/2 ML Vial IVP PRN (21:40)
[2018-05-22] MEDS ORDERED: Acetaminophen 325 MG TAB PO PRN (21:40)
[2018-05-22] MEDS ORDERED: Acetaminophen 650 MG Suppository PR PRN (21:40)
[2018-05-22] MEDS ORDERED: Fluticasone Propionate Nasal Spray 16 gm Bottle NASAL PRN (21:40)
[2018-05-22] MEDS ORDERED: Senokot S 8.6-50 MG TAB PO PRN (21:40)
[2018-05-22] MEDS ORDERED: Albuterol Sulfate 2.5 mg/3 ml Neb NEB PRN (21:40)
[2018-05-22] MEDS ORDERED: Dextrose 50% Abboject 50 ML SYRINGE SLOW IVP PRN (21:40)
[2018-05-22] MEDS ORDERED: Ondansetron ODT 4 MG TAB PO PRN (21:40)
[2018-05-22] MEDS ORDERED: Guaifenesin DM 100-10/5 ML UDCUP PO PRN (21:40)
[2018-05-22] MEDS ORDERED: HYDROcodone/Acetaminophen 10/325 mg Tablet PO PRN ×2 (21:40)
[2018-05-22 22:59] VITALS: BMI 38.0
--- NOTE | 2018-05-22 23:06 | HP ---
PRIMARY CARE PHYSICIAN: Verona Coy MD. CHIEF COMPLAINT: Right chest and shoulder pain. HISTORY OF PRESENT ILLNESS: This is a 52-year-old Afro-[place]ymra[place] male with a known history of hypertension, chronic diastolic congestive heart failure, obstructive pulmonary disease, obstructive sleep apnea, diabetes mellitus type 2, and now end-stage renal disease, on dialysis for the last 3 or 4 months. The patient has a history of chronic arthritis pains and chronic neck and low back problems. Has had previous surgeries on his neck in the past for severe pain radiating down to his right chest, shoulder, arm, and back from his neck. This improved significantly with surgery by Dr. Raymond several years ago. However, he has been having worsening problems in his right interior chest, right shoulder and right back for the last week or two. He does not know of anything that made it start getting worse, except for maybe weather changes. The pain is severe. It is a stabbing pain and it has been keeping him up at night. It is worse with moving his head in the wrong direction and with temperature changes. He reports that the pain has gotten severely worse several times during dialysis. He noticed this last week and had to stop dialysis for a little bit and then were able to resume. It happened again this week and then today when he went to start dialysis, he had severe right anterior chest pain and neck pain he was sent to the emergency room. He went to the [facility] where he had an evaluation, which was negative for any troponin elevations or EKG changes, and then they transferred him here for admission for observation. The patient reportedly had improvement in his chest pain with nitroglycerin in the emergency room, though patient does not remember the nitroglycerin particularly helping. When I talked to him, he does state the he takes [place] at home for this and often once or twice a day, especially when he is trying to go to sleep at night to help with pain as well as muscle relaxants. The patient did have some shortness of breath with the pain episode, this is improved now. He has not had any other significant associated symptoms with it. The pain never went to the left side of his chest and never caused any lightheadedness or dizziness or passing out. No nausea or vomiting. No diaphoresis. PAST MEDICAL HISTORY: 1. Chronic diastolic congestive heart failure. 2. Chronic obstructive pulmonary disease. 3. Severe obstructive sleep apnea. 4. Diabetes mellitus type 2, insulin dependent previously before his renal function got worse, but now off diabetes medicines. 5. End-stage renal disease, on dialysis. 6. Benign prostatic hyperplasia. 7. Hyperlipidemia. 8. Morbid obesity. 9. Chronic back pain. 10. Coronary artery disease with previous stents. PAST SURGICAL HISTORY: 1. Neck surgery in 2017. 2. Cardiac catheterization with stents placed. SOCIAL HISTORY: The patient is , lives with his in [place]. He has history of smoking, but quit over 36 years ago. No current tobacco, no alcohol or illicit drug use. FAMILY HISTORY: Several family members with coronary artery disease and chronic kidney disease. ALLERGIES: NO KNOWN DRUG ALLERGIES. CURRENT MEDICATIONS: The patient does not have an updated medicine list, but states that they are unchanged from his previous hospitalization. 1. Albuterol neb as needed. 2. Ipratropium bromide neb as needed. 3. Allopurinol 100 mg daily. 4. Amlodipine 10 mg daily. 5. Aspirin 81 mg daily. 6. Atorvastatin 40 mg at night. 7. Symbicort 160/4.5 mg 2 puffs twice daily. 8. Carvedilol 25 mg twice daily. 9. Vitamin D3 5000 units daily. 10. Flexeril 10 mg 3 times daily. 11. Flonase as needed. 12. Neurontin 600 mg daily. 13. Hydralazine 50 mg 3 times daily. 14. [place] 10/325 one tablet three times a day as needed. 15. Ipratropium nasal spray as needed. 16. Imdur 60 mg 3 times daily. 17. Magnesium 250 mg daily. 18. Multivitamin daily. 19. Renvela 400 mg 3 times daily. 20. Tamsulosin 0.4 mg at night. REVIEW OF SYSTEMS: CONSTITUTIONAL: No fevers, no chills. EYES: He has had some blurred vision over the last week. No double vision. ENT: Some congestion on and off. No sore throat. CARDIOVASCULAR: No left-sided chest pain. No palpitations or racing heart. See HPI for pertinent positives. PULMONARY: He did have some shortness of breath with earlier right-sided chest pain, but none currently and no coughing or wheezing. GASTROINTESTINAL: He had some nausea and vomited up his breakfast today, but has not had any nausea vomiting since and had none yesterday, did not have any nausea during the chest and shoulder pain earlier. No diarrhea or constipation. GENITOURINARY: He still does produce some urine. No dysuria or hematuria. MUSCULOSKELETAL: The patient has chronic back and neck pain and see HPI for details about the shoulder, arm and chest pain. SKIN: No rashes or other lesions noted. NEUROLOGIC: No numbness, tingling, or focal weakness. PHYSICAL EXAMINATION: VITAL SIGNS: Reviewed from the emergency room chart. GENERAL: This is a well-developed obese Afro-Cymraes male, in no acute distress. HEENT: Pupils equal, round, and reactive to light. Oropharynx clear without lesions, erythema, or exudate. NECK: Supple. No lymphadenopathy. No thyroid nodules or enlargement. HEART: Regular rate and rhythm. No murmurs, rubs, or gallops. LUNGS: Clear to auscultation bilaterally. No wheezes, crackles, or rhonchi. The patient does have significant tenderness to the anterior superior lateral aspect of the chest along the pectoralis muscle and the ribs. Pressing on this reproduces all the pain. He also has pain along the trapezius and the back, extending up to the neck and also into the muscles of the arm. These were also all tender to palpation and reproduced all the pain the patient has been having. ABDOMEN: Soft, obese, nontender to palpation. Normoactive bowel sounds. No hepatosplenomegaly or other masses. EXTREMITIES: No clubbing, cyanosis, or edema. He does have an AV fistula in the right upper extremity, currently receiving dialysis. Good thrill. SKIN: No rashes or lesions noted. NEUROLOGIC: Intact strength and sensation in all extremities. No facial droop. PSYCHIATRIC: Alert and oriented x3. Normal mood and affect. LABORATORY DATA: CBC grossly within normal limits. Complete metabolic panel notable for a chloride of 95, carbon dioxide of 32, BUN of 45, creatinine of 6.58, glucose of 218, brain nature peptide is 179, which is actually low for him. Troponin is negative x2 here. Chest x-ray, I did review the chest x-ray done in the emergency room along with the radiologist's report. It does show cardiomegaly, but no evidence of infiltrates or evidence of congestive failure. ASSESSMENT: 1. Muscular pain of the right shoulder, right anterior chest wall and arm. This is actually a flare of chronic pain. The patient has multiple musculoskeletal complaints that cause chronic pain for him. Uncertain etiology of the current flare, though it might be related to temperature changes into the weather. Also, uncertain why the patient's pain seems to get worse during dialysis and except that maybe changes in the temperature or if he has to hold his arm in a certain position. This does not appear to be cardiac in origin at all. It is atypical, it is related to movement and is reproducible by palpation. The patient does not have any changes on his EKG. He does not have any troponin elevations. No evidence of acute coronary syndrome at this time. I do think it is a good idea to watch the patient in the hospital overnight and continued to recheck his troponins and keep him on the engine monitor. Should his troponins remain negative and his telemetry be without incident, he can be safely discharged home tomorrow with pain medication. I am going to go ahead and order a venous ultrasound of the right upper extremity just to make sure he does not have a DVT or other clot there just to rule out other etiologies for this pain. The patient might benefit from followup with the [facility]. He should talk to his primary care physician about this once he is discharged. 2. End-stage renal disease and dialysis. The patient currently receiving dialysis. He has actually been compliant with this per Dr. Abreu and has been doing well other than these recent pain episodes. 3. History of coronary artery disease. No evidence of active ischemia at this time. 4. Hypertension. Resume patient's home antihypertensives. 5. History of diabetes mellitus type 2. We will check fingerstick blood sugars q.a.c. and at bedtime, put on a low insulin sliding scale. 6. History of gout. Resume patient's allopurinol. 7. History of chronic obstructive pulmonary disease. We will resume patient's nebulizers as needed along with his long-acting steroid and beta agonist inhaler. 8. Hypercholesterolemia. We will resume the patient's statin. 9. Gastrointestinal prophylaxis. We will put the patient on Pepcid in the hospital. 10. Deep venous thrombosis prophylaxis the patient on sequential compression devices while in bed. CODE STATUS: I did discuss this with the patient. He is a full code. Should he be incapacitated, his medical decision maker would be his , Dr. Lena Morales. Job ID: [id number]
[2018-05-22] MEDS ORDERED: Sevelamer Carbonate 800 MG TAB PO SCH (23:59)
[2018-05-22] MEDS ORDERED: hydrALAZINE 25 MG TAB PO SCH (23:59)
[2018-05-23] MEDS: Carvedilol 25 MG TAB PO SCH ×2 (00:02→08:17)
[2018-05-23 00:34] LABS: Troponin I 0.014 ng/mL (< 0.028)
--- NOTE | 2018-05-23 00:41 | CON ---
DATE OF CONSULTATION: 05/22/2018 REASON FOR CONSULTATION: End-stage renal disease. HISTORY OF PRESENT ILLNESS: This is a 52-year-old gentleman, who has presented to two different emergency room, presented to [facility] after he was seen at [facility] with chest pain with the pain started yesterday, which radiates to the right arm. It is constant in nature. No immediate aggravating or relieving factor. Exertion makes it worse. The patient denies any fever, chills, or weight loss. PAST MEDICAL HISTORY: Significant for hypertension, ESRD, anemia, diabetes mellitus, morbid obesity, tunneled dialysis catheter, AV fistula, history of neck surgery, history of congestive heart failure. FAMILY HISTORY: Positive for ESRD. ALLERGIES: REVIEWED. HOME MEDICATIONS: List reviewed. REVIEW OF SYSTEMS: A 15-point review of system was performed, negative except for what was noted above. NECK: No swelling or lumps. NOSE: No epistaxis or discharge. EYES: No diplopia or pain. MUSCULOSKELETAL: No joint pain. NEUROPSYCHIATIC SYSTEMS: No suicidal ideation. No ideation. SKIN: Denies any rash or ulcer. CONSTITUTIONAL: No fever or chills. PHYSICAL EXAMINATION: GENERAL: The patient is awake and alert. VITAL SIGNS: Pulse 72, breathing 16, blood pressure 130/70. GENERAL APPEARANCE AND MENTAL STATUS: Fair. HEAD/NECK: Normocephalic. Atraumatic. EYES: EOMI. No deformity. EARS: Clear. No ulcers. NOSE: Intact. No lesions. MOUTH: Clear. No discharge. THROAT: Clear. No exudate. LUNGS: Clear. No crackles. CARDIAC: S1, S2. No rub. ABDOMEN: Benign. Bowel sounds positive. GENITALIA/RECTUM: Gimenez absent. BACK/EXTREMITIES: Edema 0+. NEUROLOGICAL: Alert and motor intact. LABORATORY DATA: Reviewed. ASSESSMENT: 1. Stage 6 chronic kidney disease. Plan, dialysis. 2. Hypertension, stable. 3. Anemia, stable. 4. Chest pain. Management per primary team. Job ID: [id number]
[2018-05-23 06:26] LABS: #Eosinphils 0.1 thou/uL (0.0-0.7); #Lymphocytes 1.8 thou/uL (1.20-3.40); #Monocytes 0.7 thou/uL (0.11-0.59); #Neutrophils 3.6 thou/uL (1.40-6.50); %Basophils 0.6 % (0.0-1.0); %Eosinophils 2.2 % (0.0-10.0); %Lymphocytes 28.5 % (21.0-51.0); %Monocytes 10.9 % (0.0-10.0); %Neutrophils 57.8 % (42.0-75.0); Hemoglobin 11.9 g/dL (14.0-18.0); Mean Corpuscular HGB CONC 31.1 g/dL (32.0-36.0); Mean Corpuscular Hemoglobin 31.2 pg (27.0-31.0); Mean Platelet Volume 7.7 fL (7.4-10.4); Platelet Count 264 thou/uL (130-400); Red Blood Cell (RBC) Count 3.82 mill/uL (4.70-6.10); White Blood Cell (WBC) Count 6.2 thou/uL (4.8-10.8)
[2018-05-23] MEDS ORDERED: Mometasone/Formoterol 120 PUFF INHALER INH SCH (06:30)
[2018-05-23 06:45] LABS: Anion Gap 15 mmol/L (10-20); BUN (Urea Nitrogen) 22 mg/dL (8.4-25.7); Calc. Creatinine Clearance 27 mL/min (70-130); Carbon Dioxide 29 mmol/L (22-29); Chloride 97 mmol/L (98-107); Estimated GFR-MDRD 18; Glucose 147 mg/dL (70-105); Potassium 4.3 mmol/L (3.5-5.1); Sodium 137 mmol/L (136-145)
[2018-05-23] MEDS: Sevelamer Carbonate 800 MG TAB PO SCH ×2 (08:16→11:56)
--- NOTE | 2018-05-23 08:24 | PDOC.PN ---
- Subjective Encounter Start Date: 05/23/18 Encounter Start Time: 10:10 Subjective: Patient reports shoulder and chest pain has calmed back down -: to chronic level, just exacerbate by cold and dialysis. - Objective Resuscitation Status - Order Detail: 05/22/18 20:13 Resuscitation Status Routine Resuscitation Status: FULL: Full Resuscitation Discussed with: Patient DAIANA Reviewed: Yes Vital Signs & Weight: Vital Signs (12 hours) Temp Pulse Resp BP BP BP Pulse Ox 05/23/18 05:18 99.1 F 77 15 102/63 96 05/23/18 00:02 83 120/67 05/22/18 22:59 98.7 F 83 15 120/67 96 Weight Weight 213 lb 6.4 oz I&O: 05/22/18 05/23/18 05/24/18 06:59 06:59 06:59 Intake Total 240 Output Total 4000 Balance -3760 Result Diagrams: 05/23/18 05:26 05/23/18 05:26 Additional Labs: Accuchecks 05/22/18 23:31 POC Glucose 121 H Phys Exam - Physical Examination Constitutional: NAD HEENT: moist MMs Respiratory: no wheezing, no rales, no rhonchi TTP right shoulder, ant chest, and neck Cardiovascular: RRR Gastrointestinal: soft, positive bowel sounds Musculoskeletal: no edema Neurological: non-focal, moves all 4 limbs Psychiatric: normal affect, A&O x 3 Dx/Plan (1) Chest pain, non-cardiac Code(s): R07.89 - OTHER CHEST PAIN Status: Acute Comment: acute on chronic musculoskeletal pain of the right neck, shoulder, chest, arm. Cardiac w/u negative. U/S of RUE neg for DVT, can be discharged and f/u with PCP and pain management. (2) ESRD (end stage renal disease) Code(s): N18.6 - END STAGE RENAL DISEASE Status: Chronic Comment: continuing dialysis per Dr. Abreu (3) CAD (coronary artery disease) Code(s): I25.10 - ATHSCL HEART DISEASE OF [place] CORONARY ARTERY W/O ANG PCTRS Status: Chronic Qualifiers: Coronary Disease-Associated Artery/Lesion type: [place] artery Comment: no evidence of ACS at this time, will need to f/u with Dr. Candelario outpatient. (4) CHF (congestive heart failure) Code(s): I50.9 - HEART FAILURE, UNSPECIFIED Status: Chronic Qualifiers: Heart failure type: diastolic Comment: no exacerbation now that on regular dialysis (5) Diabetes mellitus type 2 Code(s): E11.9 - TYPE 2 DIABETES MELLITUS WITHOUT COMPLICATIONS Status: Chronic Comment: continue mild sliding scale (6) Renovascular hypertension Code(s): I15.0 - RENOVASCULAR HYPERTENSION Status: Chronic Comment: Continue antihypertensives, well controlled (7) Chronic obstructive lung disease Code(s): J44.9 - CHRONIC OBSTRUCTIVE PULMONARY DISEASE, UNSPECIFIED Status: Chronic (8) Morbid obesity Code(s): E66.01 - MORBID (SEVERE) OBESITY DUE TO EXCESS CALORIES Status: Chronic - Plan cont current plan of care plan to d/c home today * . - Discharge Day Encounter end time: 10:30
[2018-05-23] MEDS ORDERED: hydrALAZINE 25 MG TAB PO SCH (09:00)
[2018-05-23] MEDS ORDERED: Multivit, Therapeutic 1 TAB PO SCH (09:00)
[2018-05-23] MEDS ORDERED: Isosorbide Dinitrate 20 MG TAB PO SCH (09:00)
[2018-05-23] MEDS ORDERED: Famotidine 20 MG TAB PO SCH (09:00)
[2018-05-23] MEDS ORDERED: Amlodipine 5 MG TAB PO SCH (09:00)
[2018-05-23] MEDS ORDERED: Aspirin Chewable 81 MG TAB PO SCH (09:00)
[2018-05-23] MEDS ORDERED: Allopurinol 100 MG TAB PO SCH (09:00)
[2018-05-23] MEDS ORDERED: Gabapentin 300 MG CAP PO SCH (09:00)
[2018-05-23] MEDS ORDERED: Magnesium Oxide 250 MG TAB PO SCH (09:00)
--- NOTE | 2018-05-23 09:43 | ULT ---
VENOUS ULTRASOUND RIGHT UPPER EXTREMITY: INDICATION: Right upper extremity pain. FINDINGS: The imaged deep vein system of the right upper extremity does not reveal evidence of thrombus. There is compressibility and flow. A fistula is noted between the patient's right upper extremity arteria l system at the level of the radial artery and the cephalic vein. IMPRESSION: 1. No deep vein thrombosis of the right upper extremity. 2. Incidentally noted arteriovenous fistula. POS: TPC
[2018-05-23 11:46] VITALS: BP 114/68; TEMP 98.7
--- NOTE | 2018-05-23 13:10 | PRG ---
DATE OF SERVICE: 05/23/2018 SUBJECTIVE: A 52-year-old gentleman being seen for end-stage renal disease. The patient tolerated dialysis well. OBJECTIVE: See above. GENERAL: Awake, alert, in no acute distress. VITAL SIGNS: Pulse 79, breathing 16, blood pressure 114/68. GENERAL APPEARANCE AND MENTAL STATUS: Fair. HEAD/NECK: Normocephalic. Atraumatic. EYES: EOMI. No deformity. EARS: Clear. No ulcers. NOSE: Intact. No lesions. MOUTH: Clear. No discharge. THROAT: Clear. No exudate. LUNGS: Clear. No crackles. CARDIAC: S1, S2. No rub. ABDOMEN: Benign. Bowel sounds positive. GENITALIA/RECTUM: Gimenez absent. BACK/EXTREMITIES: Edema 0+. NEUROLOGICAL: Alert and motor intact. SKIN: LYMPHATICS: LABORATORY DATA: Labs show hemoglobin 11.9. ASSESSMENT: 1. Stage 6 chronic kidney disease. We will plan dialysis tomorrow. 2. Hypertension, stable. 3. Anemia, stable. 4. Medication based on GFR appropriate. Job ID: [id number]
--- NOTE | 2018-05-23 15:37 | DIS ---
DATE OF ADMISSION: 05/22/2018 DATE OF DISCHARGE: 05/23/2018 PRIMARY CARE PHYSICIAN: Verona Coy MD PRIMARY RAILWAY ENGINEER: Hayden Abreu MD REASON FOR ADMISSION: Right-sided chest pain. DIAGNOSES AT DISCHARGE: 1. Musculoskeletal pain of the right shoulder, neck, and chest, acute on chronic. 2. Coronary artery disease, chronic, stable. 3. End-stage renal disease, on dialysis. 4. Diastolic congestive heart failure, not in exacerbation. 5. Diabetes mellitus, type 2. 6. Hypertension. 7. Chronic obstructive pulmonary disease. 8. Morbid obesity. PROCEDURES: Vascular ultrasound of right upper extremity showing no evidence of DVT, but with a patent AV fistula. SUMMARY OF HOSPITAL COURSE: This is a 52-year-old Afro-Iraqi male with a known history of coronary artery disease, diastolic congestive heart failure, and end-stage renal disease, on dialysis. He also has chronic pain in the neck and low back and has had previous problems with the pain from his neck causing pain in the right anterior chest, shoulder, and arm as well as the right back. The patient reports that his chronic pain on the right shoulder has exacerbated over the last couple of weeks associated with temperature changes and then when he goes to dialysis, it is very cold there and during dialysis, it tends to make the pain worse in his right anterior chest, his right shoulder and arm. The patient had this pain yesterday and so was sent to the [facility]. He had an evaluation there, it was negative for troponin elevations or EKG changes. He was transferred here for observation. There is some question about nitroglycerin possibly helping the pain there. The patient did not remember this. The patient had negative troponins overnight. He had no abnormalities on his bell tier. His pain improved this morning. We did do an ultrasound of the right upper extremity to make certain he did not have a DVT, this was negative. The patient appears to have acute flare-up with chronic musculoskeletal pain. He does see Dr. Britt and Dr. Ramos in the outpatient for this and he will be discharged home to follow up with them. DISCHARGE MANAGEMENT: Discharged home. FOLLOWUP: Follow up with Dr. Abreu for continued dialysis, with Dr. Ramos in the next 1 to 2 weeks, and with Dr. Candelario, his drill hand in the next 2 to 3 weeks. ACTIVITY: As tolerated. DIET: Diabetic renal diet. MEDICATIONS: The patient is to resume all of his home medications. 1. Albuterol neb as needed. 2. Allopurinol 100 mg daily. 3. Amlodipine 10 mg daily. 4. Aspirin 81 mg daily. 5. Symbicort 160/4.5 two puffs twice a day. 6. Carvedilol 25 mg twice a day. 7. Vitamin D3 of 5000 units daily. 8. Flexeril 10 mg 3 times a day. 9. Fluticasone nasal spray as needed. 10. Gabapentin 600 mg daily as needed. 11. Hydralazine 50 mg 3 times a day. 12. Magnesium 250 mg daily. 13. Multivitamin daily. 14. Renvela 400 mg 3 times a day. 15. Tamsulosin 0.4 mg at night. 16. Mavyret 100/40 mg 3 tablets daily. 17. Hydrocodone 10/325 one tablet 3 times a day as needed for pain. 18. Atrovent nasal spray as needed. 19. Ipratropium bromide neb as needed. 20. Isosorbide dinitrate 30 mg 3 times a day. 21. Stool softener twice a day. Arranging the details of this discharge took 35 minutes. Job ID: [id number]
== END 2018-05-23 12:02 | disposition home or self-care (01) ==
LOC: ERS 16:39 → 2SW 20:01
PROVIDERS: ADMIT Emergency Medicine; ATTEND Emergency Medicine
DX: M25.511 Pain in right shoulder (principal); R07.9 Chest pain, unspecified; I25.10 Atherosclerotic heart disease of native coronary artery without angina pectoris; I13.2 Hypertensive heart and chronic kidney disease with heart failure and with stage 5 chronic kidney disease, or end stage renal disease; E11.22 Type 2 diabetes mellitus with diabetic chronic kidney disease; N18.6 End stage renal disease; I50.32 Chronic diastolic (congestive) heart failure; Z99.2 Dependence on renal dialysis; D63.1 Anemia in chronic kidney disease; E66.01 Morbid (severe) obesity due to excess calories; Z68.37 Body mass index [BMI] 37.0-37.9, adult; J44.9 Chronic obstructive pulmonary disease, unspecified; G47.33 Obstructive sleep apnea (adult) (pediatric); M19.90 Unspecified osteoarthritis, unspecified site; N40.0 Benign prostatic hyperplasia without lower urinary tract symptoms; E78.00 Pure hypercholesterolemia, unspecified; M10.9 Gout, unspecified; Z95.5 Presence of coronary angioplasty implant and graft; Z87.891 Personal history of nicotine dependence; Z79.82 Long term (current) use of aspirin; Z79.899 Other long term (current) drug therapy; Z98.890 Other specified postprocedural states
CPT/HCPCS: 71046; 80048; 80053; 82962 ×2; 83880; 84484 ×3; 85025 ×2; 87340; 93005; 93971; 94640; 97139 ×3; 99285; G0378 ×2; 36415; 36416; 90935; G0257

== ENCOUNTER 2018-06-19 17:18 | Emergency (ER) | payer MEDICARE ==
[2018-06-19 19:18] LABS: #Basophils 0.1 thou/uL (0.0-0.2); #Eosinphils 0.1 thou/uL (0.0-0.7); #Lymphocytes 1.9 thou/uL (1.20-3.40); #Monocytes 0.5 thou/uL (0.11-0.59); #Neutrophils 3.4 thou/uL (1.40-6.50); %Basophils 1.6 % (0.0-1.0); %Eosinophils 1.7 % (0.0-10.0); %Lymphocytes 31.9 % (21.0-51.0); %Monocytes 8.5 % (0.0-10.0); %Neutrophils 56.4 % (42.0-75.0); Hemoglobin 12.1 g/dL (14.0-18.0); Mean Corpuscular HGB CONC 31.5 g/dL (32.0-36.0); Mean Corpuscular Hemoglobin 30.9 pg (27.0-31.0); Mean Corpuscular Volume 98.3 fL (78.0-98.0); Mean Platelet Volume 7.6 fL (7.4-10.4); Platelet Count 226 thou/uL (130-400); RBC Distribution Width 13.8 % (11.5-14.5); Red Blood Cell (RBC) Count 3.92 mill/uL (4.70-6.10)
[2018-06-19 19:38] LABS: ALT (SGPT) 15 U/L (8-55); AST (SGOT) 15 U/L (5-34); Albumin 3.7 g/dL (3.5-5.0); Alkaline Phosphatase 110 U/L (40-150); Anion Gap 16 mmol/L (10-20); BUN (Urea Nitrogen) 55 mg/dL (8.4-25.7); Bilirubin, Total 0.5 mg/dL (0.2-1.2); Calc. Creatinine Clearance 0 mL/min (70-130); Calcium 8.8 mg/dL (7.8-10.44); Carbon Dioxide 33 mmol/L (22-29); Chloride 92 mmol/L (98-107); Estimated GFR-MDRD 10; Globulin 3.5 g/dL (2.4-3.5); Glucose 325 mg/dL (70-105); Potassium 4.1 mmol/L (3.5-5.1); Protein, Total 7.2 g/dL (6.0-8.3); Sodium 137 mmol/L (136-145)
--- NOTE | 2018-06-19 21:17 | RAD ---
PORTABLE AP CHEST X-RAY: 06/19/2018 HISTORY: Shortness of breath. The patient missed dialysis today. COMPARISON: 05/22/2018 FINDINGS: Post surgical changes of the lower cervical spine are again seen. The cardiac silhouette is magnifie d by projection but is stable in size from the prior exam. There are linear densities at each lung b ase, likely related to mild bibasilar atelectasis. The lungs are otherwise clear. The pulmonary vas culature is within normal limits for the portable technique of the exam. No pleural effusion is seen . No other interval change. IMPRESSION: 1. Atelectasis at the left lung base. 2. The cardiac silhouette is stable in size and is borderline enlarged. 3. There are no findings to suggest pulmonary edema, and no pleural effusion is seen. POS: ÓSCAR
--- NOTE | 2018-06-21 12:26 | EKG ---
Test Reason : Blood Pressure : / mmHG Vent. Rate : 079 BPM Atrial Rate : 079 BPM P-R Int : 124 ms QRS Dur : 106 ms QT Int : 414 ms P-R-T Axes : 058 021 065 degrees QTc Int : 474 ms Normal sinus rhythm Normal ECG Confirmed by LESLY MONTEMAYOR, KEN Jeronimo ([id number]), editor at large ANDREW CABALLERO ([id number]) on 06/21/2018 12:25:58 PM Referred By: Confirmed By:KEN GRACE MD
== END 2018-06-20 03:07 | disposition home or self-care (01) ==
LOC: ERS 17:18
DX: E87.70 Fluid overload, unspecified (principal); I13.2 Hypertensive heart and chronic kidney disease with heart failure and with stage 5 chronic kidney disease, or end stage renal disease; I50.9 Heart failure, unspecified; N18.6 End stage renal disease; E11.22 Type 2 diabetes mellitus with diabetic chronic kidney disease; I25.10 Atherosclerotic heart disease of native coronary artery without angina pectoris; J44.9 Chronic obstructive pulmonary disease, unspecified; Z87.891 Personal history of nicotine dependence
CPT/HCPCS: 36415; 71045; 80053; 83880; 85025; 93005

== ENCOUNTER 2019-03-03 19:08 | Observation (INO) | payer MEDICARE ==
[2019-03-03 21:43] LABS: #Lymphocytes 1.3 thou/uL (1.20-3.40); #Monocytes 0.7 thou/uL (0.11-0.59); #Neutrophils 6.7 thou/uL (1.40-6.50); %Basophils 0.1 % (0.0-1.0); %Eosinophils 0.3 % (0.0-10.0); %Lymphocytes 14.9 % (21.0-51.0); %Monocytes 8.2 % (0.0-10.0); %Neutrophils 76.6 % (42.0-75.0); Mean Corpuscular HGB CONC 33.3 g/dL (32.0-36.0); Mean Corpuscular Hemoglobin 33.6 pg (27.0-31.0); Mean Platelet Volume 8.7 fL (7.4-10.4); Platelet Count 224 thou/uL (130-400); RBC Distribution Width 13.5 % (11.5-14.5); Red Blood Cell (RBC) Count 3.27 mill/uL (4.70-6.10); White Blood Cell (WBC) Count 8.7 thou/uL (4.8-10.8)
--- NOTE | 2019-03-03 22:13 | RAD ---
PA AND LATERAL CHEST: HISTORY: Dyspnea. Cough. COMPARISON: 02/28/2019 FINDINGS: The heart size is normal. The lungs are expanded without lobar consolidation, pneumothoraces or pleur al effusions. There are postop changes in the lower cervical spine. IMPRESSION: No radiographic evidence of acute cardiopulmonary process. POS: OFF
[2019-03-03 22:23] LABS: Albumin 4.2 g/dL (3.5-5.0)
[2019-03-03 22:24] LABS: Chloride 87 mmol/L (98-107); Potassium 4.4 mmol/L (3.5-5.1); Sodium 131 mmol/L (136-145)
[2019-03-03 22:25] LABS: Calcium 8.4 mg/dL (7.8-10.44); Globulin 2.9 g/dL (2.4-3.5); Protein, Total 7.1 g/dL (6.0-8.3)
[2019-03-03 22:27] LABS: Anion Gap 19 mmol/L (10-20); Bilirubin, Total 0.4 mg/dL (0.2-1.2); Carbon Dioxide 29 mmol/L (22-29)
[2019-03-03 22:28] LABS: Alkaline Phosphatase 110 U/L (40-110)
[2019-03-03 22:29] LABS: BUN (Urea Nitrogen) 30 mg/dL (8.4-25.7); Calc. Creatinine Clearance 0 mL/min (70-130); Estimated GFR-MDRD 11
[2019-03-03 22:30] LABS: AST (SGOT) 32 U/L (5-34)
[2019-03-03 22:31] LABS: ALT (SGPT) 21 U/L (8-55); CK (CPK) 1380 U/L (30-200)
[2019-03-03 22:33] LABS: CKMB 7.4 ng/mL (0-6.6); Glucose 632 mg/dL (70-105)
[2019-03-03] MEDS ORDERED: Acetaminophen 500 MG TAB ONE (22:50)
[2019-03-03] MEDS ORDERED: Aspirin Chewable 81 MG TAB ONE (22:51)
[2019-03-03 22:57] LABS: Base Excess-Venous 8.8 mmol/L (-2.0 to 3.0); Calcium, Ionized 0.93 mmol/L (See Comments:); Chloride 90 mmol/L (98-107); Hemoglobin - Calc 12.7 g/dL (14.0-18.0); Potassium 3.9 mmol/L (3.5-5.1); Sodium 131 mmol/L (138-145); T. Carbon Dioxide 35.5 mmol/L (22.0-28.0); vO2 Saturation-calc 75.5 % (60.0-85.0)
[2019-03-03] MEDS ORDERED: Insulin Regular 300 UNITS/3 ML VIAL ONE (23:26)
[2019-03-03] MEDS ORDERED: Dextrose 5% in Water 1,000 ML IV PRN (23:49)
[2019-03-03] MEDS ORDERED: Bisacodyl 5 MG TAB PO PRN (23:49)
[2019-03-03] MEDS ORDERED: Dextrose 50% Abboject 50 ML SYRINGE SLOW IVP PRN (23:49)
[2019-03-03] MEDS ORDERED: Acetaminophen 650 MG Suppository PR PRN (23:49)
[2019-03-04] MEDS ORDERED: Morphine 4 MG/ML VIAL ONE (00:01)
[2019-03-04] MEDS ORDERED: Sodium Chloride 0.9% 1,000 ML IV SCH (00:15)
--- NOTE | 2019-03-04 00:27 | HP ---
PRIMARY CARE PROVIDER: Verona Coy MD CHIEF COMPLAINT: Shortness of breath. HISTORY OF PRESENT ILLNESS: Mr. Morales is a pleasant 53-year-old gentleman, who was seen at [facility] on March 03, 2019. He reports that 2 to 3 weeks ago, he developed shortness of breath and cough. He was started on amoxicillin by primary care provider. Symptoms did not improve. He went to [facility] 3 days ago for ongoing shortness of breath and cough. He was recommended admission at that time, but declined. He was discharged home on azithromycin. His symptoms worsened. Today, he was very short of breath at dialysis, therefore was sent to the emergency room after finishing dialysis. He denies any fevers. He denies any nausea or vomiting. He denies any orthopnea or paroxysmal nocturnal dyspnea. He reports shortness of breath with exertion. He reports that cough was productive of whitish to yellowish sputum. He also reports wheezing. REVIEW OF SYSTEMS: All systems were reviewed and found to be negative except for the pertinent positives mentioned above. PAST MEDICAL HISTORY: Coronary artery disease, congestive heart failure, diabetes mellitus type 2, end-stage renal disease, on dialysis Sunday, Sunday, and Sunday, dyslipidemia, hypertension, COPD, and chronic back pain. PAST SURGICAL HISTORY: Neck surgery, back surgery, and dialysis shunt to the right arm. SOCIAL HISTORY: The patient denies alcohol use or recreational drug use. He is an ex-smoker. FAMILY HISTORY: Diabetes mellitus in his mother and maternal grandmother. ALLERGIES: NO KNOWN DRUG ALLERGIES. CURRENT MEDICATIONS: 1. Symbicort one puff 2 times a day. 2. Magnesium 250 mg daily. 3. Lipitor 40 mg daily. 4. Lasix 80 mg daily. 5. Hydralazine 100 mg daily. 6. Coreg 6.25 mg daily. 7. Aspirin 81 mg daily. 8. Albuterol inhalation once daily. 9. Tylenol 1 g 2 times a day. 10. Clonidine 0.2 mg daily. 11. Flomax 0.4 mg daily. 12. Gabapentin 600 mg daily. 13. Glipizide 10 mg 2 times a day. 14. Prednisone 50 mg daily. 15. Vitamin D3 1000 units daily. 16. Sevelamer 800 mg 3 times a day. 17. Azithromycin 250 mg daily. 18. Vascepa 1 g 2 times a day. 19. Allopurinol 100 mg daily. 20. Stool softener 2 times a day. PHYSICAL EXAMINATION: GENERAL: On examination, Mr. Morales is awake and alert, not in acute distress. VITAL SIGNS: Blood pressure is 134/88, pulse 96, respiratory rate 16, and oxygen saturation 93% on room air. T-max in the emergency room was 100.2 degrees Fahrenheit. His pulse was 110 at the time of presentation. EYES: No scleral icterus, no conjunctival pallor. ENT: Dry mucosal membranes. No oropharyngeal erythema or exudates. NECK: Supple, nontender, trachea is midline. RESPIRATORY: Accessory muscles of breathing are mildly active. Chest wall movements are symmetric bilaterally. LUNG: Reveals markedly diminished breath sounds at both bases. ABDOMEN: Soft, nontender, bowel sounds are heard. CARDIOVASCULAR: S1 and S2 are heard, regular. NEUROLOGIC: Cranial nerves 2 through 12 are intact. MUSCULOSKELETAL: Power is 5/5 in all 4 extremities. SKIN: 1+ edema in bilateral lower extremities. LYMPHATIC: No cervical lymphadenopathy. PSYCHIATRIC: Normal mood, normal affect, the patient is oriented to person, place, and time. LABORATORY DATA: Mr. Morales's labs and investigations were reviewed. He has normal white count, macrocytic anemia with hemoglobin 11, normal platelet count, sodium of 131, potassium 4.4, blood glucose 632, creatinine 6.42, creatine kinase is elevated at 1380, troponin I indeterminate at 0.052, elevated BNP of 476 and normal calcium level. I reviewed his electrocardiogram, which shows normal sinus rhythm, no ST changes to suggest an acute coronary syndrome. I also reviewed his chest x-ray, which does not show any pulmonary infiltrates. ASSESSMENT AND PLAN: Mr. Morales is a pleasant 53-year-old gentleman, who was seen at [facility] on March 03, 2019. His problem list includes: 1. Sepsis: Mr. Morales is presenting with sepsis secondary to acute bronchitis. He was tachycardic and febrile earlier today in the emergency room. He will be admitted to the hospital for further management. 2. Acute bronchitis: We will treat him with oxygen, steroids, bronchodilators, and antibiotics. He was treated with amoxicillin and azithromycin as outpatient. Therefore, we will start him on levofloxacin for renally adjusted dose. 3. Hyperglycemia: The patient has a history of diabetes mellitus. His blood sugars are elevated secondary to steroid use. We will start him on Accu-Cheks and insulin sliding scale. He is not in ketoacidosis at this time. 4. Hypertension: We will resume the patient's home medications, monitor vital signs and titrate antihypertensives as needed. 5. End-stage renal disease, on dialysis: We will consult Nephrology Service for maintenance dialysis. 6. Dehydration: Clinically, the patient is dehydrated. We will provide gentle hydration and reassess. 7. Congestive heart failure: The patient has a history of congestive heart failure. At this time, he is not in congestive heart failure exacerbation. We will continue to monitor. Many thanks for allowing me to participate in your patient's care. Please contact me with any questions or concerns. LEVEL OF RISK: High. LEVEL OF COMPLEXITY: High. Job ID: [id number]
[2019-03-04 03:55] VITALS: BMI 29.8
[2019-03-04 05:03] LABS: Hemoglobin 11.3 g/dL (14.0-18.0); Mean Corpuscular HGB CONC 32.8 g/dL (32.0-36.0); Mean Corpuscular Hemoglobin 33.2 pg (27.0-31.0); Mean Platelet Volume 7.4 fL (7.4-10.4); Platelet Count 197 thou/uL (130-400); RBC Distribution Width 12.1 % (11.5-14.5); White Blood Cell (WBC) Count 9.5 thou/uL (4.8-10.8)
[2019-03-04 05:18] LABS: Anion Gap 16 mmol/L (10-20); BUN (Urea Nitrogen) 34 mg/dL (8.4-25.7); Calc. Creatinine Clearance 18 mL/min (70-130); Calcium 8.3 mg/dL (7.8-10.44); Carbon Dioxide 30 mmol/L (22-29); Chloride 92 mmol/L (98-107); Estimated GFR-MDRD 11; Glucose 241 mg/dL (70-105); Potassium 3.6 mmol/L (3.5-5.1); Sodium 134 mmol/L (136-145)
[2019-03-04 06:08] LABS: #Eosinphils 0.1 thou/uL (0.0-0.7); #Lymphocytes 2.7 thou/uL (1.20-3.40); #Neutrophils 5.6 thou/uL (1.40-6.50); %Basophils 0.3 % (0.0-1.0); %Eosinophils 1.2 % (0.0-10.0); %Neutrophils 59.5 % (42.0-75.0); RBC Morphology Normal
[2019-03-04] MEDS: HumaLOG 300 UNITS/3 ML VIAL SC PRN ×2 (06:11→17:05)
[2019-03-04] MEDS ORDERED: FLU VACC QS2019-20(6MOS UP)/PF 60 MCG/0.5 ML SYRINGE IM ONE (09:00)
[2019-03-04] MEDS: Heparin 5,000 UNITS/ML VIAL SC SCH ×2 (09:26→15:43)
[2019-03-04] MEDS: Acetaminophen 325 MG TAB PO PRN ×2 (09:27→14:42)
[2019-03-04 12:00] VITALS: TEMP 99.3
--- NOTE | 2019-03-04 15:20 | PDOC.HOSPP ---
- Subjective Encounter Date: 03/04/19 Subjective: COUGH WITH SOB - Objective Vital Signs & Weight: Vital Signs (12 hours) Temp Pulse Resp BP Pulse Ox 03/04/19 10:50 99.3 F 89 20 133/77 97 03/04/19 07:23 99.0 F 93 20 117/60 99 03/04/19 04:49 97.2 F L 89 18 119/71 97 Weight Weight 219 lb 15.988 oz I&O: 03/03/19 03/04/19 03/05/19 06:59 06:59 06:59 Intake Total 600 590 Output Total 50 Balance 600 540 Result Diagrams: 03/04/19 04:48 03/04/19 04:48 Additional Labs: Accuchecks 03/04/19 03/04/19 03/04/19 10:58 06:09 00:22 POC Glucose 131 H 177 H 432 H Hospitalist ROS - Review of Systems Respiratory: reports: cough, shortness of breath - Medication Medications: Active Medications Generic Name Dose Route Start Last Admin Trade Name Freq PRN Reason Stop Dose Admin Acetaminophen 650 mg 03/03/19 23:49 03/04/19 14:42 Tylenol PO 650 mg Q4H PRN Administration Headache/Fever/Mild Pain (1-3) Heparin Sodium (Porcine) 5,000 units 03/04/19 09:00 03/04/19 09:26 Heparin SC 5,000 units TID YANI Administration Sodium Chloride 1,000 mls @ 50 mls/hr 03/04/19 00:15 03/04/19 01:55 Normal Saline 0.9% IV 1,000 mls .Q20H YANI Administration Insulin Human Lispro 0 units 03/03/19 23:49 03/04/19 06:11 Humalog SC 2 unit .MILD SLIDING SCALE PRN Administration Mild Correctional Scale - Exam General Appearance: awake alert Eye: PERRL, anicteric sclera ENT: normocephalic atraumatic, no oropharyngeal lesions, moist mucosa Neck: supple, symmetric, no JVD, no thyromegaly, no lymphadenopathy, no carotid bruit Heart: RRR, no murmur, no gallops, no rubs, normal peripheral pulses Respiratory: CTAB, no wheezes, no rales, no ronchi, normal chest expansion, no tachypnea, normal percussion Gastrointestinal: soft, non-tender, non-distended, normal bowel sounds, no palpable masses, no hepatomegaly, no splenomegaly, no bruit Extremities: no cyanosis, no clubbing, no edema, 1+ LE edema Skin: normal turgor, no lesions, no rashes Neurological: cranial nerve grossly intact, normal sensation to touch, no weakness, no focal deficits, no new deficit Musculoskeletal: normal tone, normal strength, no muscle wasting Psychiatric: normal affect, normal behavior, A&O x 3 Hosp A/P (1) Acute bronchitis Code(s): J20.9 - ACUTE BRONCHITIS, UNSPECIFIED Status: Acute Plan: SYMPTOMATIC AND ON IV LEVAQUIN (2) Cardiomyopathy Code(s): I42.9 - CARDIOMYOPATHY, UNSPECIFIED Status: Chronic (3) Chronic obstructive lung disease Code(s): J44.9 - CHRONIC OBSTRUCTIVE PULMONARY DISEASE, UNSPECIFIED Status: Chronic (4) Diabetes mellitus type 2 Code(s): E11.9 - TYPE 2 DIABETES MELLITUS WITHOUT COMPLICATIONS Status: Chronic (5) Dyslipidemia Code(s): E78.5 - HYPERLIPIDEMIA, UNSPECIFIED Status: Chronic (6) ESRD (end stage renal disease) Code(s): N18.6 - END STAGE RENAL DISEASE Status: Chronic Plan: NEPHROLOGY HAS ADVICED FOR HD FOR H/O ESRD AND CURRENT FLUID OVERLOAD (7) Morbid obesity Code(s): E66.01 - MORBID (SEVERE) OBESITY DUE TO EXCESS CALORIES Status: Chronic (8) Renovascular hypertension Code(s): I15.0 - RENOVASCULAR HYPERTENSION Status: Chronic - Plan old records reviewed/req, respiratory therapy 1.Lilkely unresolving bronchitis with fluid overload. 2.Can be discharge in am with renally dosed levaquin for 5 days.
[2019-03-04 15:38] LABS: HBSAg Index 0.37 S/CO (0-0.99); Hep B Surf Ag Non-Reactive S/CO (NonReactive)
[2019-03-04 15:50] LABS: HBSAB Concentration 30.99 mIU/mL; Hep B Surf AB Reactive (NonReactive)
[2019-03-04 17:17] VITALS: BP 121/71
--- NOTE | 2019-03-04 19:30 | CON ---
DATE OF CONSULTATION: REASON FOR CONSULTATION: Stage 6 chronic kidney disease, for maintenance hemodialysis. HISTORY OF PRESENT ILLNESS: This is a very pleasant 53-year-old gentleman, who presented to the hospital last night for URI versus CHF exacerbation. The patient does have edema and currently was on BiPAP. The patient denies headache, numbness, tingling, or weakness. Denies any nausea, vomiting, or chest pain, but has dyspnea. PAST MEDICAL HISTORY: Significant for coronary artery disease, heart failure, diabetes mellitus, COPD, hypertension, morbid obesity, neck surgery, back surgery, AV fistula, tunneled dialysis catheter. SOCIAL ECONOMIC HISTORY: No alcohol or drug use. FAMILY HISTORY: Negative for ESRD. ALLERGIES: REVIEWED. HOME MEDICATIONS: List hospital. HOSPITAL MEDICATIONS: List reviewed. REVIEW OF SYSTEMS: A 15-point review of system was performed and negative except for positives noted above. GENERAL: HEAD: NECK: No swelling or lumps. NOSE: No epistaxis or discharge. EYES: No diplopia or pain. RESPIRATORY: CARDIOVASCULAR: GASTROINTESTINAL: /DOORS PREFITTER: MUSCULOSKELETAL: No joint pain. NEUROPSYCHIATIC SYSTEMS: No suicidal ideation. No ideation. SKIN: Denies any rash or ulcer. CONSTITUTIONAL: No fever or chills. PHYSICAL EXAMINATION: CONSTITUTIONAL: The patient is awake and alert. VITAL SIGNS: Pulse 96, breathing 16, blood pressure 121/70. GENERAL APPEARANCE AND MENTAL STATUS: Fair. HEAD/NECK: Normocephalic. Atraumatic. EYES: EOMI. No deformity. EARS: Clear. No ulcers. NOSE: Intact. No lesions. MOUTH: Clear. No discharge. THROAT: Clear. No exudate. LUNGS: Clear. No crackles. CARDIAC: S1, S2. No rub. ABDOMEN: Benign. Bowel sounds positive. GENITALIA/RECTUM: Gimenez absent. BACK/EXTREMITIES: Edema 0+. NEUROLOGICAL: Alert and motor intact. SKIN: LYMPHATICS: LABORATORY DATA: Reviewed. ASSESSMENT AND PLAN: 1. Stage 6 chronic kidney disease, plan dialysis. 2. Hypertension, stable. 3. Anemia, stable. 4. Medication based on GFR, appropriate. Job ID: [id number]
--- NOTE | 2019-03-05 03:28 | DIS ---
DATE OF ADMISSION: 03/03/2019 DATE OF DISCHARGE: 03/04/2019 DISCHARGING DIAGNOSES: 1. Acute bronchitis, discharged with oral Levaquin therapy per renal protocol. 2. Diabetes mellitus type 2. 3. Benign essential hypertension. 4. Fluid overload, status post hemodialysis today with history of end-stage renal disease. HOSPITAL COURSE: This is a 53-year-old male gentleman, admitted to the Hospitalist Services for failed antibiotic treatment for bronchitis by his primary care physician, was evaluated initially and subsequently started on IV Levaquin. The patient tolerated this treatment very well. Symptom resolution was noted overnight and the patient had hemodialysis for fluid overload. Subsequently after discussion with Nephrology Services, advised the patient for discharge planning and eventual follow up with his primary care physician. The patient was hemodynamically optimized on discharge and a 5-day course of oral Levaquin was prescribed. Job ID: [id number]
== END 2019-03-04 19:53 | disposition home or self-care (01) ==
LOC: ERS 19:08 → 2SW 23:19
PROVIDERS: ADMIT Internal Medicine; ATTEND Internal Medicine
DX: A41.9 Sepsis, unspecified organism (principal); J20.9 Acute bronchitis, unspecified; J44.0 Chronic obstructive pulmonary disease with (acute) lower respiratory infection; I25.10 Atherosclerotic heart disease of native coronary artery without angina pectoris; I13.2 Hypertensive heart and chronic kidney disease with heart failure and with stage 5 chronic kidney disease, or end stage renal disease; E11.22 Type 2 diabetes mellitus with diabetic chronic kidney disease; E11.65 Type 2 diabetes mellitus with hyperglycemia; N18.6 End stage renal disease; I50.9 Heart failure, unspecified; I15.0 Renovascular hypertension; E78.5 Hyperlipidemia, unspecified; E86.0 Dehydration; D64.9 Anemia, unspecified; Z79.82 Long term (current) use of aspirin; Z79.84 Long term (current) use of oral hypoglycemic drugs; Z79.899 Other long term (current) drug therapy; Z99.2 Dependence on renal dialysis; Z87.891 Personal history of nicotine dependence; E66.01 Morbid (severe) obesity due to excess calories; Z68.29 Body mass index [BMI] 29.0-29.9, adult
CPT/HCPCS: 71046; 80048; 80053; 82330; 82435; 82550; 82553; 82803; 82962; 83880; 84132; 84295; 84484; 85014; 85025 ×2; 86706; 87040; 87340; 93005; 94640; 96361; 96365; 96375; 99285; G0378 ×2; 36415; 36416; 96374; J1644; J1815; J1956; J2270

== ENCOUNTER 2019-05-06 06:39 | Emergency (ER) | payer MEDICARE | END 2019-05-06 09:15 | disposition home or self-care (01) | LOC: ERS 06:39 | DX: R05 Cough (principal); I25.10 Atherosclerotic heart disease of native coronary artery without angina pectoris; E11.22 Type 2 diabetes mellitus with diabetic chronic kidney disease; I13.2 Hypertensive heart and chronic kidney disease with heart failure and with stage 5 chronic kidney disease, or end stage renal disease; I50.9 Heart failure, unspecified; N18.6 End stage renal disease; E78.5 Hyperlipidemia, unspecified; E78.00 Pure hypercholesterolemia, unspecified; J44.9 Chronic obstructive pulmonary disease, unspecified; Z99.2 Dependence on renal dialysis; Z87.891 Personal history of nicotine dependence; Z79.51 Long term (current) use of inhaled steroids; Z79.82 Long term (current) use of aspirin; Z79.4 Long term (current) use of insulin; Z79.899 Other long term (current) drug therapy | CPT/HCPCS: 99284 ==

== ENCOUNTER 2020-02-24 11:24 | Inpatient (IN) | payer MEDICARE, MEDICAID ==
[2020-02-24 12:47] LABS: #Lymphocytes 0.5 thou/uL (1.20-3.40); #Monocytes 0.2 thou/uL (0.11-0.59); #Neutrophils 6.6 thou/uL (1.40-6.50); %Basophils 0.2 % (0.0-1.0); %Eosinophils 0.1 % (0.0-10.0); %Lymphocytes 6.7 % (21.0-51.0); %Monocytes 2.2 % (0.0-10.0); %Neutrophils 90.9 % (42.0-75.0); Hemoglobin 9.4 g/dL (14.0-18.0); Mean Platelet Volume 7.2 fL (7.4-10.4); Platelet Count 419 thou/uL (130-400); RBC Distribution Width 12.9 % (11.5-14.5); Red Blood Cell (RBC) Count 2.84 mill/uL (4.70-6.10); White Blood Cell (WBC) Count 7.2 thou/uL (4.8-10.8)
--- NOTE | 2020-02-24 12:52 | RAD ---
Portable chest: HISTORY: Shortness of breath. COMPARISON: 02/13/2020 FINDINGS:There are new bilateral confluent infiltrates. These are extensive in the right lung seen th roughout right upper and lower lung. Confluent infiltrate in the mid peripheral left lung. Heart and mediastinum appear stable. IMPRESSION:New bilateral infiltrates, more extensive on the right.
[2020-02-24] MEDS ORDERED: Iopamidol-370 76% 500 ML 1 ML ONE (13:04)
[2020-02-24 13:26] LABS: ALT (SGPT) 41 U/L (8-55); AST (SGOT) 84 U/L (5-34); Albumin 3.5 g/dL (3.5-5.0); Alkaline Phosphatase 59 U/L (40-110); Anion Gap 21 mmol/L (10-20); BUN (Urea Nitrogen) 37 mg/dL (8.4-25.7); Bilirubin, Total 0.6 mg/dL (0.2-1.2); Calc. Creatinine Clearance 0 mL/min (70-130); Carbon Dioxide 28 mmol/L (22-29); Chloride 90 mmol/L (98-107); Estimated GFR-MDRD 10; Globulin 4.2 g/dL (2.4-3.5); Glucose 295 mg/dL (70-105); Potassium 4.7 mmol/L (3.5-5.1); Protein, Total 7.7 g/dL (6.0-8.3); Sodium 134 mmol/L (136-145)
[2020-02-24 13:37] LABS: CKMB 8.2 ng/mL (0-6.6)
[2020-02-24] MEDS ORDERED: Dexamethasone 10 MG/ML VIAL ONE (14:06)
[2020-02-24] MEDS ORDERED: cefTRIAXone\\ROCEPHIN 1 GM VIAL ONE (14:06)
[2020-02-24 15:10] LABS: Lactic Acid 2.2 mmol/L (0.5-2.2)
--- NOTE | 2020-02-24 15:20 | CT ---
CTA Angio Chest W WO Con History: Chest pain. Covid positive Comparison: Chest radiograph same day. CT chest February 13, 2020 Findings: CT angiogram chest performed after the intravenous administration of contrast. 3-D renderin g provided. No proximal segmental pulmonary arterial filling defect although peripheral evaluation for embolism i s limited due to the delayed phase of contrast. Pulmonary trunk is mildly enlarged. Aortic contour is normal. Extensive patchy peripheral and perihilar airspace opacities. No pneumothorax or effusion. No pneumom ediastinum. Small reactive right pericardiophrenic lymph node. Previously described 9 mm right upper lobe nodule obscured through the extensive airspace consolidati on. Sternum and manubrium are intact. Thoracic spine is intact. Moderate bilateral gynecomastia. No acute displaced rib fracture. Impression: 1. No pulmonary embolism. 2.Commonly reported imaging findings of COVID-19 pneumonia.
[2020-02-24] MEDS ORDERED: Azithromycin 500 MG VIAL ONE (15:55)
[2020-02-24] MEDS ORDERED: Dextrose 5% in Water 1,000 ML IV PRN (16:52)
[2020-02-24] MEDS ORDERED: Dextrose 50% Abboject 50 ML SYRINGE SLOW IVP PRN (16:52)
[2020-02-24] MEDS ORDERED: Acetaminophen 325 MG TAB PO PRN (16:52)
[2020-02-24 17:05] LABS: Troponin I 0.164 ng/mL (< 0.028)
[2020-02-24 19:49] LABS: Troponin I 0.152 ng/mL (< 0.028)
[2020-02-24] MEDS ORDERED: Albuterol Sulfate 2.5 mg/3 ml Neb NEB PRN (19:53)
--- NOTE | 2020-02-24 19:53 | PDOC.HHP ---
Hospitalist HPI - History of Present Illness History of Present Illness: ADMISSION DATE: 02/24/2020 TIME OF ASSESSMENT: 1615 PRIMARY CARE PHYSICIAN: Darian Hazel CHIEF COMPLAINT: Difficulty breathing HPI: Patient is a 54-year-old male past medical history significant for end- stage renal disease on dialysis, congestive heart failure, diabetes type 2, and CAD. He presents to the ER today for difficulty breathing. He was diagnosed with COVID-19 7 days ago and was admitted to the [facility] from 02/14/2020 to 02/18/2020. He was not a candidate for remdesivir due to his ESRD. Patient states he has been compliant with his dialysis treatments. Patient denies chest pain, bowel or bladder disturbance. He endorses fever at home and states that his is also in the hospital currently with COVID-19. ED COURSE: Today in the ER they completed a chest x-ray, chest and thorax CTA, EKG, lab work. He was given 125 mg Solu-Medrol and 1 metered-dose inhaler prior to arrival by EMS. In the ER he received azithromycin 500 mg IV, ceftriaxone 1 g IV, and dexamethasone 10 mg IV. PAST MEDICAL HISTORY: CAD, congestive heart failure, diabetes type 2, end-stage renal disease with dialysis on Sunday was a Sunday, hyperlipidemia, hypertension, COPD, chronic back pain PAST SURGICAL HISTORY: Neck surgery, back surgery, shunt right arm SOCIAL HISTORY: Patient lives at home with his he denies any alcohol, drugs, or tobacco use. He quit smoking more than 10 years ago. FAMILY HISTORY: Noncontributory to this case ALLERGIES: No known drug allergies CURRENT MEDICATIONS: Lasix 80 mg p.o. daily Albuterol Gabapentin 600 mg once daily Glipizide 10 mg twice a day Vascepa 2 tablets twice a day Allopurinol undergo grams once a day Symbicort Aspirin 81 mg once a day Albuterol inhaler Benzonatate 100 mg once a day Levemir FlexPen 18 units twice a day Hospitalist ROS - Review of Systems Constitutional: reports: fever Respiratory: reports: cough, shortness of breath All other systems reviewed; all pertinent +/- noted in HPI/Subj Hospitalist History - Social History Alcohol: reports: None Occupation: unemployed - Exam General Appearance: awake alert, ill appearing Eye: PERRL ENT: normocephalic atraumatic Neck: supple Heart: RRR, no murmur, no gallops, no rubs, normal peripheral pulses Respiratory: rales, tachypneic, wheezes Gastrointestinal: soft, normal bowel sounds, distended Extremities: 1+ LE edema Psychiatric: A&O x 3 Hospitalist Results - Labs Result Diagrams: 02/24/20 12:27 02/24/20 12:27 Lab results: WBC 7.2 thou/uL (4.8-10.8) 02/24/20 12:27 Hgb 9.4 g/dL (14.0-18.0) L 02/24/20 12:27 Hct 29.2 % (42.0-52.0) L 02/24/20 12:27 MCV 103.0 fL (78.0-98.0) H 02/24/20 12:27 Plt Count 419 thou/uL (130-400) H 02/24/20 12:27 Neutrophils % 90.9 % (42.0-75.0) H 02/24/20 12:27 Sodium 134 mmol/L (136-145) L 02/24/20 12:27 Potassium 4.7 mmol/L (3.5-5.1) 02/24/20 12:27 Chloride 90 mmol/L (98-107) L 02/24/20 12:27 Carbon Dioxide 28 mmol/L (22-29) 02/24/20 12:27 BUN 37 mg/dL (8.4-25.7) H 02/24/20 12:27 Creatinine 7.17 mg/dL (0.7-1.3) H 02/24/20 12:27 Glucose 295 mg/dL (70-105) H 02/24/20 12:27 Lactic Acid 2.2 mmol/L (0.5-2.2) 02/24/20 14:42 Calcium 8.0 mg/dL (7.8-10.44) 02/24/20 12:27 Total Bilirubin 0.6 mg/dL (0.2-1.2) 02/24/20 12:27 AST 84 U/L (5-34) H 02/24/20 12:27 ALT 41 U/L (8-55) 02/24/20 12:27 Alkaline Phosphatase 59 U/L (40-110) 02/24/20 12:27 CK-MB (CK-2) 8.2 ng/mL (0-6.6) H* 02/24/20 12:27 Troponin I 0.152 ng/mL (< 0.028) H 02/24/20 19:12 Serum Total Protein 7.7 g/dL (6.0-8.3) 02/24/20 12:27 Albumin 3.5 g/dL (3.5-5.0) 02/24/20 12:27 - EKG Interpretation EKG: Sinus tachycardia rate 108 - Radiology Interpretation Chest x-ray Status: image reviewed by me, report reviewed by me Additional Comment: FINDINGS:There are new bilateral confluent infiltrates. These are extensive in t he right lung seen throughout right upper and lower lung. Confluent infiltrate in the mid peripheral left lung. Heart and mediastinum appear stable. IMPRESSION:New bilateral infiltrates, more extensive on the right. CT scan - chest Status: report reviewed by me Additional Comment: Impression: 1. No pulmonary embolism. 2.Commonly reported imaging findings of COVID-19 pneumonia. Hospitalist H&P A/P - Plan Plan: #COVID-19 pneumonia Continue on oxygen at this time as needed Zinc, vitamin C, vitamin D Continue IV antibiotics #Hypertension Restart home medications As needed antihypertensives available #Diabetes type 2 Monitor Accu-Cheks AC at bedtime Mild sliding scale insulin Restart home medications once reconciled #End-stage renal disease on dialysis Nephrology consultation Normal dialysis days Sunday Heparin for DVT prophylaxis CODE STATUS: Full Patient surrogate decision-maker is his Luiza
[2020-02-24] MEDS: HumaLOG 300 UNITS/3 ML VIAL SC PRN (23:34)
[2020-02-24] MEDS: Heparin 5,000 UNITS/ML VIAL SC SCH (23:36)
[2020-02-24 23:53] VITALS: BMI 40.8
--- NOTE | 2020-02-25 00:48 | CON ---
DATE OF CONSULTATION: REASON FOR CONSULTATION: End-stage renal disease for maintenance hemodialysis. HISTORY OF PRESENTING ILLNESS: This is a very pleasant 54-year-old gentleman, who presented to the hospital for increasing dyspnea. Patient is COVID positive. Patient denies any nausea, vomiting, or chest pain. PAST MEDICAL HISTORY: Significant for hypertension, anemia, diabetes mellitus, morbid obesity, congestive heart failure, cataract surgery, and tunneled catheter fistula placement. SOCIAL HISTORY: No alcohol or drug use. FAMILY HISTORY: Negative for ESRD. ALLERGIES: REVIEWED. MEDICATIONS: Home medications list reviewed. Hospital medications list reviewed. REVIEW OF SYSTEMS: 15-point review of system was performed negative, except for positives noted above. HEENT: Eyes intact, no diplopia. Ears: No hearing loss or earache. Nose: No discharge or bleeding. Chest: No cough or phlegm. Abdomen: No nausea or vomiting. Genitourinary: No hematuria. No Gimenez catheter. Musculoskeletal: No low back pain. No joint swelling or pain. Neurological: No syncope. No seizures. Skin: No complaints of rash or itching. Psychiatric: No depression. Constitutional: No weight loss or loss of appetite. LABORATORY DATA: Reviewed. ASSESSMENT AND PLAN: 1. Stage 6 chronic kidney disease. Plan, dialysis. 2. Hypertension. Stable. 3. Anemia. Stable. 4. Medication based on GFR if appropriate. Job ID: [id number]
[2020-02-25] MEDS: Albuterol 200 PUFF (6.7GM INHALER) INH PRN ×3 (04:24→14:28)
[2020-02-25] MEDS: Guaifenesin DM 100-10/5 ML UDCUP PO PRN ×2 (04:26→22:24)
[2020-02-25 05:34] LABS: Anion Gap 23 mmol/L (10-20); BUN (Urea Nitrogen) 50 mg/dL (8.4-25.7); Calc. Creatinine Clearance 15 mL/min (70-130); Carbon Dioxide 23 mmol/L (22-29); Chloride 91 mmol/L (98-107); Estimated GFR-MDRD 8; Glucose 320 mg/dL (70-105); Potassium 4.8 mmol/L (3.5-5.1); Sodium 132 mmol/L (136-145)
[2020-02-25 05:35] LABS: Band 3 % (5-11); Hemoglobin 9.4 g/dL (14.0-18.0); Hypochromia SLIGHT = 6-15 cells (100X) (0-5/hpf); Lymphocytes 6 % (21-51); MDiff Complete? YES; Macrocytosis SLIGHT = 6-15 cells (100X) (0-5/hpf); Mean Corpuscular HGB CONC 31.2 g/dL (32.0-36.0); Mean Corpuscular Hemoglobin 31.9 pg (27.0-31.0); Mean Platelet Volume 6.7 fL (7.4-10.4); Monocytes 2 % (0-10); Neutrophil 89 % (42-75); Platelet Count 472 thou/uL (130-400); Platelet Morphology Comment Appears Increased; RBC Distribution Width 12.9 % (11.5-14.5); Red Blood Cell (RBC) Count 2.94 mill/uL (4.70-6.10); White Blood Cell (WBC) Count 7.7 thou/uL (4.8-10.8)
[2020-02-25] MEDS: HumaLOG 300 UNITS/3 ML VIAL SC PRN ×3 (07:07→17:22)
[2020-02-25] MEDS: Heparin 5,000 UNITS/ML VIAL SC SCH ×3 (08:35→22:19)
[2020-02-25] MEDS: Zinc Sulfate 220 MG CAP PO SCH (08:35)
[2020-02-25] MEDS: Dexamethasone 4 mg/ml Vial SLOW IVP SCH (08:35)
[2020-02-25] MEDS: Ascorbic Acid 500 mg Chewable Tablet PO SCH (08:35)
[2020-02-25] MEDS ORDERED: Prevnar 13-Val Conj/PF 0.5 ML SYRINGE IM ONE (09:00)
[2020-02-25] MEDS ORDERED: Cholecalciferol 1,000 UNITS (25 MCG) TAB PO SCH (09:00)
--- NOTE | 2020-02-25 09:18 | PRG ---
DATE OF SERVICE: 02/25/2020 SUBJECTIVE: A 54-year-old gentleman being seen for end-stage renal disease. The patient denies any nausea, vomiting, or chest pain. PHYSICAL EXAMINATION: General: The patient is awake and alert. Vital Signs: Afebrile, pulse 75, breathing at 16, blood pressure 139/70. HEENT: Head normocephalic and atraumatic. Eyes intact, no ulcers. Nose intact, no ulcers. Ears intact, no ulcers. Neck: Supple. No JVD. Chest: Symmetrical and clear. Cardiovascular: Shows S1 and S2, no rub, no murmur. Gastrointestinal: Abdomen is soft, bowel sounds positive. Extremities: Show no edema or ulcers. Skin: Shows no rash or petechiae. Musculoskeletal: Shows no joint swelling or stiffness. Genitourinary: Shows no Gimenez or CVA tenderness. Neurologic: Motor intact. Cranial nerves intact. LABORATORY DATA: Reviewed. ASSESSMENT AND PLAN: 1. Stage 6 chronic kidney disease. Continue hemodialysis. 2. Hypertension, stable. 3. Anemia, stable. 4. Medications based on GFR if appropriate. Job ID: [id number]
[2020-02-25] MEDS ORDERED: cefTRIAXone\\ROCEPHIN 1 GM in Sodium Chloride 0.9% 100 ML IVPB SCH (14:00)
[2020-02-25] MEDS ORDERED: Acetaminophen 500 MG TAB PO PRN (14:59)
[2020-02-25] MEDS ORDERED: Sevelamer Carbonate 800 MG TAB PO PRN (15:14)
[2020-02-25] MEDS ORDERED: Fluticasone Propionate Nasal Spray 16 gm Bottle NASAL PRN (15:16)
--- NOTE | 2020-02-25 15:44 | PDOC.HOSPP ---
- Subjective Encounter Date: 02/25/20 Encounter Time: 11:15 Subjective: pt up in bed complains of cough and gets chest pain when he coughs - Objective Vital Signs & Weight: Vital Signs (12 hours) Temp Pulse Resp BP Pulse Ox 02/25/20 13:23 93 L 02/25/20 12:15 98.3 F 93 20 134/66 94 L 02/25/20 08:50 99.0 F 94 22 H 129/63 93 L 02/25/20 04:26 98.4 F 90 16 139/70 99 Weight Weight 245 lb 1 oz I&O: 02/24/20 02/25/20 02/26/20 06:59 06:59 06:59 Intake Total 250 600 Balance 250 600 Result Diagrams: 02/26/20 04:12 02/26/20 04:12 Additional Labs: Accuchecks 02/25/20 02/24/20 11:01 23:30 POC Glucose 389 H 373 H Hospitalist ROS - Review of Systems Respiratory: reports: cough, shortness of breath Cardiovascular: denies: chest pain, palpitations, orthopnea, paroxysmal noc. dyspnea, edema, light headedness, other Gastrointestinal: denies: nausea, vomiting, abdominal pain, diarrhea, constipation, melena, hematochezia, other - Medication Medications: Active Medications Generic Name Dose Route Start Last Admin Trade Name Freq PRN Reason Stop Dose Admin Albuterol Sulfate 2 puff 02/25/20 03:19 02/25/20 14:28 Albuterol 200 Puff (6.7gm Inhaler) INH 2 puff [id number] PRN Administration Wheezing Ascorbic Acid 1,000 mg 02/25/20 09:00 02/25/20 08:35 Ascorbic Acid 500 Mg Chewable Tablet PO 1,000 mg DAILY YANI Administration Dexamethasone 6 mg 02/25/20 09:00 02/25/20 08:35 Dexamethasone 4 Mg/Ml Vial SLOW IVP 6 mg DAILY YANI Administration Guaifenesin/Dextromethorphan 15 ml 02/24/20 16:52 02/25/20 04:26 Guaifenesin Dm 100-10/5 Ml Udcup PO 15 ml Q4H PRN Administration Cough Heparin Sodium (Porcine) 5,000 units 02/24/20 21:00 02/25/20 14:12 Heparin 5,000 Units/Ml Vial SC 5,000 units TID YANI Administration Ceftriaxone Sodium 1 gm/ 100 mls @ 200 mls/hr 02/25/20 14:00 02/25/20 14:12 Sodium Chloride IVPB 100 mls 1400 YANI Administration Insulin Human Lispro 0 units 02/24/20 16:52 02/25/20 12:07 Humalog 300 Units/3 Ml Vial SC 6 unit .MILD SLIDING SCALE PRN Administration Mild Correctional Scale Insulin Human Lispro 0 units 02/24/20 16:52 02/24/20 23:34 Humalog 300 Units/3 Ml Vial SC 5 unit .BEDTIME SLIDING SC PRN Administration Bedtime Correctional Scale Zinc Sulfate 220 mg 02/25/20 09:00 02/25/20 08:35 Zinc Sulfate 220 Mg Cap PO 220 mg DAILY YANI Administration - Exam Neck: negative: supple, symmetric, no JVD, no thyromegaly, no lymphadenopathy, no carotid bruit, JVD Heart: negative: RRR, no murmur, no gallops, no rubs, normal peripheral pulses, irregular, diminshed peripheral pulses, murmur present, II/IV, III/IV Respiratory: wheezes Gastrointestinal: negative: soft, non-tender, non-distended, normal bowel sounds, no palpable masses, no hepatomegaly, no splenomegaly, no bruit, no guard ing, no rigidity, tender to palpation, distended, diminished bowl sounds, voluntary guarding Hosp A/P (1) Acute respiratory failure with hypoxia Code(s): J96.01 - ACUTE RESPIRATORY FAILURE WITH HYPOXIA Status: Acute (2) COVID-19 virus detected Code(s): U07.1 - COVID-19 Status: Acute (3) Diabetes mellitus type 2 Code(s): E11.9 - TYPE 2 DIABETES MELLITUS WITHOUT COMPLICATIONS Status: Chronic (4) ESRD (end stage renal disease) Code(s): N18.6 - END STAGE RENAL DISEASE Status: Chronic (5) Morbid obesity Code(s): E66.01 - MORBID (SEVERE) OBESITY DUE TO EXCESS CALORIES Status: Chronic - Plan Patient was recently admitted at [facility] for Covid pneumonia. He was discharged home without any oxygen since he did not require oxygen at that time. Patient states that he was taking his steroids. CTA reviewed appears worsening Covid infiltrates. We will continue antibiotics for now. We will add medications for his cough. Patient is getting dialysis. Patient states that he never smoked cigarettes he had a history of smoking marijuana. I believe patient's chest pain is most likely secondary to coughing we will continue to monitor. We will check CRP and ferritin. We will continue steroids. Patient DVT prophylaxis.
[2020-02-25] MEDS ORDERED: Azithromycin 500 MG in Sodium Chloride 0.9% 250 ML 250 ML IVPB SCH (16:00)
[2020-02-25] MEDS: glipiZIDE 10 MG TAB PO SCH (16:00)
[2020-02-25] MEDS: Benzonatate 100 MG CAP PO PRN (16:00)
[2020-02-25] MEDS: Mometasone 200 MCG/Formoterol 5 MCG 120 PUFF INHALER INH SCH (17:23)
[2020-02-25] MEDS: Sevelamer Carbonate 800 MG TAB PO SCH (17:23)
[2020-02-25] MEDS: Icosapent Ethyl 1 GM CAPSULE PO SCH (17:24)
[2020-02-25 18:35] LABS: HBSAg Index 0.16 S/CO (0-0.99); Hep B Surf Ag Non-Reactive S/CO (NonReactive)
[2020-02-25] MEDS ORDERED: Non-Formulary Item 1 EACH (Insulin Detemir [Levemir Flextouch] 100 UNIT/ML Insuln.Pen) SQ SCH (21:00)
[2020-02-25] MEDS: Insulin Glargine 18 UNITS in Pre-Filled Syringe 1 EACH SC SCH (22:22)
[2020-02-25] MEDS: Atorvastatin Calcium 40 MG TAB PO SCH (22:23)
[2020-02-25] MEDS: Carvedilol 3.125 MG TAB PO SCH (22:23)
[2020-02-26] MEDS: Benzonatate 100 MG CAP PO PRN ×4 (01:41→22:32)
[2020-02-26 05:05] LABS: Anion Gap 17 mmol/L (10-20); BUN (Urea Nitrogen) 35 mg/dL (8.4-25.7); Calc. Creatinine Clearance 21 mL/min (70-130); Calcium 8.1 mg/dL (7.8-10.44); Carbon Dioxide 29 mmol/L (22-29); Chloride 95 mmol/L (98-107); Estimated GFR-MDRD 11; Glucose 211 mg/dL (70-105); Potassium 4.1 mmol/L (3.5-5.1); Sodium 137 mmol/L (136-145)
[2020-02-26 05:24] LABS: Band 9 % (5-11); Hemoglobin 8.5 g/dL (14.0-18.0); Lymphocytes 12 % (21-51); MDiff Complete? YES; Mean Corpuscular HGB CONC 33.2 g/dL (32.0-36.0); Mean Corpuscular Hemoglobin 34.4 pg (27.0-31.0); Mean Platelet Volume 6.5 fL (7.4-10.4); Monocytes 4 % (0-10); Neutrophil 75 % (42-75); Nucleated RBC 1 % (0); Platelet Count 451 thou/uL (130-400); Platelet Morphology Comment Appears Increased; RBC Distribution Width 12.9 % (11.5-14.5); Red Blood Cell (RBC) Count 2.46 mill/uL (4.70-6.10)
[2020-02-26] MEDS: Mometasone 200 MCG/Formoterol 5 MCG 120 PUFF INHALER INH SCH ×2 (06:28→18:36)
[2020-02-26] MEDS: HumaLOG 300 UNITS/3 ML VIAL SC PRN ×4 (06:28→22:31)
[2020-02-26] MEDS: Senokot S 8.6-50 MG TAB PO SCH (08:08)
[2020-02-26] MEDS: Magnesium Oxide 400 MG TAB PO SCH (08:08)
[2020-02-26] MEDS: Aspirin 81 mg Enteric Coated Tablet PO SCH (08:09)
[2020-02-26] MEDS: Ascorbic Acid 500 mg Chewable Tablet PO SCH (08:09)
[2020-02-26] MEDS: Docusate 100 MG CAP PO SCH (08:09)
[2020-02-26] MEDS: Multivit, Therapeutic 1 TAB PO SCH (08:09)
[2020-02-26] MEDS: Tamsulosin HCl 0.4 MG CAP PO SCH (08:09)
[2020-02-26] MEDS: Icosapent Ethyl 1 GM CAPSULE PO SCH ×2 (08:09→16:57)
[2020-02-26] MEDS: Sevelamer Carbonate 800 MG TAB PO SCH ×2 (08:10→16:57)
[2020-02-26] MEDS: glipiZIDE 10 MG TAB PO SCH ×2 (08:10→16:57)
[2020-02-26] MEDS: Allopurinol 100 MG TAB PO SCH (08:10)
[2020-02-26] MEDS: Gabapentin 300 MG CAP PO SCH (08:10)
[2020-02-26] MEDS: Carvedilol 3.125 MG TAB PO SCH ×2 (08:10→21:36)
[2020-02-26] MEDS: Zinc Sulfate 220 MG CAP PO SCH (08:11)
[2020-02-26] MEDS: Cholecalciferol 1,000 UNITS (25 MCG) TAB PO SCH (08:11)
[2020-02-26] MEDS: Heparin 5,000 UNITS/ML VIAL SC SCH ×3 (08:11→21:35)
[2020-02-26] MEDS: Dexamethasone 4 mg/ml Vial SLOW IVP SCH (08:11)
[2020-02-26] MEDS: Guaifenesin DM 100-10/5 ML UDCUP PO PRN ×2 (08:15→17:02)
[2020-02-26] MEDS ORDERED: Glecaprevir/Pibrentasvir [Mavyret 100-40 Mg Tablet] PO SCH (09:00)
[2020-02-26] MEDS: Insulin Glargine 18 UNITS in Pre-Filled Syringe 1 EACH SC SCH ×2 (09:31→21:35)
--- NOTE | 2020-02-26 11:02 | PRG ---
DATE OF SERVICE: 02/26/2020 SUBJECTIVE: This is a 54-year-old male being seen for end-stage renal disease. The patient denies nausea, vomiting, or chest pain. OBJECTIVE: GENERAL: The patient is awake and alert. VITAL SIGNS: Afebrile, pulse 93, breathing at 16, blood pressure 154/70. HEENT: Head normocephalic and atraumatic. Eyes intact, no ulcers. Nose intact, no ulcers. Ears intact, no ulcers. NECK: Supple. No JVD. CHEST: Symmetrical and clear. CARDIOVASCULAR: Shows S1 and S2, no rub, no murmur. GASTROINTESTINAL: Abdomen is soft, bowel sounds positive. EXTREMITIES: Show no edema or ulcers. SKIN: Shows no rash or petechiae. MUSCULOSKELETAL: Shows no joint swelling or stiffness. GENITOURINARY: Shows no Gimenez or CVA tenderness. NEUROLOGIC: Motor intact. Cranial nerves intact. LABORATORY DATA: Reviewed. ASSESSMENT AND PLAN: 1. Stage 6 chronic kidney disease. Plan dialysis. 2. Hypertension, stable. 3. Anemia, stable. 4. Medication based on GFR, appropriate. Job ID: [id number]
--- NOTE | 2020-02-26 16:03 | PDOC.HOSPP ---
- Subjective Encounter Date: 02/26/20 Encounter Time: 10:00 Subjective: Patient up in bed complains of some nausea. - Objective Vital Signs & Weight: Vital Signs (12 hours) Temp Pulse Resp BP BP Pulse Ox 02/26/20 11:50 98.3 F 93 20 124/60 95 02/26/20 08:30 100 02/26/20 08:20 98.7 F 93 20 144/70 H 96 02/26/20 05:10 98.4 F 84 12 125/69 100 Weight Weight 245 lb 1 oz I&O: 02/25/20 02/26/20 02/27/20 06:59 06:59 06:59 Intake Total 250 1890 Balance 250 1890 Result Diagrams: 02/26/20 04:12 02/26/20 04:12 Additional Labs: Accuchecks 02/26/20 02/25/20 02/25/20 10:40 22:11 16:04 POC Glucose 246 H 165 H 362 H Hospitalist ROS - Review of Systems ENT: denies: ear pain, ear discharge, nose pain, nose discharge, nose congestion, mouth pain, mouth swelling, throat pain, throat swelling, other Cardiovascular: reports: light headedness Gastrointestinal: reports: nausea Genitourinary: denies: dysuria, frequency, incontinence, hematuria, retention, other - Medication Medications: Active Medications Generic Name Dose Route Start Last Admin Trade Name Freq PRN Reason Stop Dose Admin Acetaminophen 1,000 mg 02/25/20 14:59 02/25/20 23:17 Acetaminophen 500 Mg Tab PO 1,000 mg Q6H PRN Administration Fever/Mild Pain (1-3) Allopurinol 100 mg 02/26/20 09:00 02/26/20 08:10 Allopurinol 100 Mg Tab PO 100 mg DAILY YANI Administration Ascorbic Acid 1,000 mg 02/25/20 09:00 02/26/20 08:09 Ascorbic Acid 500 Mg Chewable Tablet PO 1,000 mg DAILY YANI Administration Aspirin 81 mg 02/26/20 09:00 02/26/20 08:09 Aspirin 81 Mg Enteric Coated Tablet PO 81 mg DAILY YANI Administration Atorvastatin Calcium 40 mg 02/25/20 21:00 02/25/20 22:23 Atorvastatin Calcium 40 Mg Tab PO 40 mg HS YANI Administration Benzonatate 100 mg 02/25/20 14:59 02/26/20 09:31 Benzonatate 100 Mg Cap PO 100 mg TIDPRN PRN Administration Cough Carvedilol 3.125 mg 02/25/20 21:00 02/26/20 08:10 Carvedilol 3.125 Mg Tab PO 3.125 mg BID YANI Administration Cholecalciferol 1,000 units 02/26/20 09:00 02/26/20 08:11 Cholecalciferol 1,000 Units (25 Mcg) Tab PO 1,000 units DAILY YANI Administration Dexamethasone 6 mg 02/25/20 09:00 02/26/20 08:11 Dexamethasone 4 Mg/Ml Vial SLOW IVP 6 mg DAILY YANI Administration Docusate Sodium 200 mg 02/26/20 09:00 02/26/20 08:09 Docusate 100 Mg Cap PO 200 mg DAILY YANI Administration Gabapentin 600 mg 02/26/20 09:00 02/26/20 08:10 Gabapentin 300 Mg Cap PO 600 mg DAILY YANI Administration Glipizide 10 mg 02/25/20 16:30 02/26/20 08:10 Glipizide 10 Mg Tab PO 10 mg BID-AC YANI Administration Guaifenesin/Dextromethorphan 15 ml 02/24/20 16:52 02/26/20 08:15 Guaifenesin Dm 100-10/5 Ml Udcup PO 15 ml Q4H PRN Administration Cough Heparin Sodium (Porcine) 5,000 units 02/24/20 21:00 02/26/20 14:34 Heparin 5,000 Units/Ml Vial SC 5,000 units TID YANI Administration Insulin Glargine 18 units/ 0.18 mls @ 0 mls/hr 02/25/20 21:00 02/26/20 09:31 Miscellaneous Medication SC 0.18 mls BID YANI Administration Insulin Human Lispro 0 units 02/24/20 16:52 02/26/20 11:45 Humalog 300 Units/3 Ml Vial SC 3 unit .MILD SLIDING SCALE PRN Administration Mild Correctional Scale Insulin Human Lispro 0 units 02/24/20 16:52 02/24/20 23:34 Humalog 300 Units/3 Ml Vial SC 5 unit .BEDTIME SLIDING SC PRN Administration Bedtime Correctional Scale Magnesium Oxide 200 mg 02/26/20 09:00 02/26/20 08:08 Magnesium Oxide 400 Mg Tab PO 200 mg DAILY YANI Administration Miscellaneous Medication 2 gm 02/25/20 17:00 02/26/20 08:09 Icosapent Ethyl 1 Gm Capsule PO 2 gm BID-WM YANI Administration Mometasone Furoate/Formoterol Fumar 2 puff 02/25/20 18:30 02/26/20 06:28 Mometasone 200 Mcg/Formoterol 5 Mcg 120 Puff Inhaler INH 2 puff BID-RT YANI Administration Multivitamins 1 tab 02/26/20 09:00 02/26/20 08:09 Multivit, Therapeutic 1 Tab PO 1 tab DAILY YANI Administration Senna/Docusate Sodium 2 tab 02/26/20 09:00 02/26/20 08:08 Senokot S 8.6-50 Mg Tab PO 2 tab DAILY YANI Administration Sevelamer Carbonate 1,600 mg 02/25/20 17:00 02/26/20 08:10 Sevelamer Carbonate 800 Mg Tab PO 1,600 mg BID-WM YANI Administration Tamsulosin HCl 0.4 mg 02/26/20 09:00 02/26/20 08:09 Tamsulosin Hcl 0.4 Mg Cap PO 0.4 mg DAILY YANI Administration Zinc Sulfate 220 mg 02/25/20 09:00 02/26/20 08:11 Zinc Sulfate 220 Mg Cap PO 220 mg DAILY YANI Administration - Exam Neck: negative: supple, symmetric, no JVD, no thyromegaly, no lymphadenopathy, no carotid bruit, JVD Respiratory: negative: CTAB, no wheezes, no rales, no ronchi, normal chest expansion, no tachypnea, normal percussion, rales, rhonchi, tachypneic, wheezes Hosp A/P (1) Acute respiratory failure with hypoxia Code(s): J96.01 - ACUTE RESPIRATORY FAILURE WITH HYPOXIA Status: Acute (2) COVID-19 virus detected Code(s): U07.1 - COVID-19 Status: Acute (3) Diabetes mellitus type 2 Code(s): E11.9 - TYPE 2 DIABETES MELLITUS WITHOUT COMPLICATIONS Status: [facility] (4) ESRD (end stage renal disease) Code(s): N18.6 - END STAGE RENAL DISEASE Status: Chronic (5) Morbid obesity Code(s): E66.01 - MORBID (SEVERE) OBESITY DUE TO EXCESS CALORIES Status: Chronic - Plan Patient was recently admitted at [facility] for Covid pneumonia. He was discharged home without any oxygen since he did not require oxygen at that time. Patient states that he was taking his steroids. CTA reviewed appears worsening Covid infiltrates. We will continue antibiotics for now. We will add medications for his cough. Patient is getting dialysis. Patient states that he never smoked cigarettes he had a history of smoking marijuana. I believe patient's chest pain is most likely secondary to coughing we will continue to monitor. We will check CRP and ferritin. We will continue steroids. Patient DVT prophylaxis. 02/25 patient currently off oxygen we will continue to monitor. Will check inflammatory markers. Possible discharge in a.m. if he continues to be off oxygen.
[2020-02-26] MEDS: HYDROcodone/Acetaminophen 10/325 mg Tablet PO PRN ×2 (16:58→22:32)
[2020-02-26] MEDS ORDERED: cefTRIAXone\\ROCEPHIN 1 GM in Sodium Chloride 0.9% 100 ML IVPB SCH (21:00)
[2020-02-26] MEDS ORDERED: Azithromycin 500 MG in Sodium Chloride 0.9% 250 ML 250 ML IVPB SCH (21:00)
[2020-02-26] MEDS: Atorvastatin Calcium 40 MG TAB PO SCH (21:35)
[2020-02-27 04:59] LABS: #Basophils 0.1 thou/uL (0.0-0.2); #Lymphocytes 1.3 thou/uL (1.20-3.40); #Monocytes 0.5 thou/uL (0.11-0.59); #Neutrophils 4.4 thou/uL (1.40-6.50); %Basophils 0.8 % (0.0-1.0); %Eosinophils 0.3 % (0.0-10.0); %Lymphocytes 20.6 % (21.0-51.0); %Monocytes 8.1 % (0.0-10.0); %Neutrophils 70.2 % (42.0-75.0); Mean Corpuscular HGB CONC 32.1 g/dL (32.0-36.0); Mean Corpuscular Hemoglobin 32.5 pg (27.0-31.0); Mean Platelet Volume 6.4 fL (7.4-10.4); Platelet Count 482 thou/uL (130-400); RBC Distribution Width 13.2 % (11.5-14.5); Red Blood Cell (RBC) Count 2.75 mill/uL (4.70-6.10); White Blood Cell (WBC) Count 6.3 thou/uL (4.8-10.8)
[2020-02-27 05:05] LABS: Prothrombin Time 13.3 sec (12.0-14.7)
[2020-02-27 05:23] LABS: Anion Gap 19 mmol/L (10-20); BUN (Urea Nitrogen) 53 mg/dL (8.4-25.7); Calc. Creatinine Clearance 15 mL/min (70-130); Carbon Dioxide 28 mmol/L (22-29); Chloride 92 mmol/L (98-107); Estimated GFR-MDRD 8; Glucose 182 mg/dL (70-105); Potassium 4.1 mmol/L (3.5-5.1); Sodium 135 mmol/L (136-145)
[2020-02-27] MEDS: Mometasone 200 MCG/Formoterol 5 MCG 120 PUFF INHALER INH SCH (05:59)
--- NOTE | 2020-02-27 08:17 | PRG ---
DATE OF SERVICE: 02/27/2020 SUBJECTIVE: A 54-year-old male, being seen for end-stage renal disease. The patient denies any nausea, vomiting, or chest pain. OBJECTIVE: General: The patient is awake and alert. Vital Signs: Afebrile, pulse 97, breathing at 16, blood pressure 156/83. HEENT: Head normocephalic and atraumatic. Eyes intact, no ulcers. Nose intact, no ulcers. Ears intact, no ulcers. Neck: Supple. No JVD. Chest: Symmetrical and clear. Cardiovascular: Shows S1 and S2, no rub, no murmur. Gastrointestinal: Abdomen is soft, bowel sounds positive. Extremities: Show no edema or ulcers. Skin: Shows no rash or petechiae. Musculoskeletal: Shows no joint swelling or stiffness. Genitourinary: Shows no Gimenez or CVA tenderness. Neurologic: Motor intact. Cranial nerves intact. LABORATORY DATA: Reviewed. ASSESSMENT: 1. Stage 6 chronic kidney disease, plan dialysis today. 2. Hypertension, stable. 3. Anemia, stable. 4. Medication based on GFR appropriate. Job ID: [id number]
[2020-02-27] MEDS: Docusate 100 MG CAP PO SCH (08:31)
[2020-02-27] MEDS: Gabapentin 300 MG CAP PO SCH (08:31)
[2020-02-27] MEDS: Dexamethasone 4 mg/ml Vial SLOW IVP SCH (08:31)
[2020-02-27] MEDS: Icosapent Ethyl 1 GM CAPSULE PO SCH ×2 (08:32→16:53)
[2020-02-27] MEDS: Magnesium Oxide 400 MG TAB PO SCH (08:33)
[2020-02-27] MEDS: Sevelamer Carbonate 800 MG TAB PO SCH ×2 (08:33→16:54)
[2020-02-27] MEDS: Senokot S 8.6-50 MG TAB PO SCH (08:33)
[2020-02-27] MEDS: glipiZIDE 10 MG TAB PO SCH ×2 (08:33→16:54)
[2020-02-27] MEDS: Zinc Sulfate 220 MG CAP PO SCH (08:34)
[2020-02-27] MEDS: Allopurinol 100 MG TAB PO SCH (08:34)
[2020-02-27] MEDS: Carvedilol 3.125 MG TAB PO SCH (08:34)
[2020-02-27] MEDS: Multivit, Therapeutic 1 TAB PO SCH (08:34)
[2020-02-27] MEDS: Aspirin 81 mg Enteric Coated Tablet PO SCH (08:34)
[2020-02-27] MEDS: Tamsulosin HCl 0.4 MG CAP PO SCH (08:34)
[2020-02-27] MEDS: Heparin 5,000 UNITS/ML VIAL SC SCH ×2 (08:34→16:52)
[2020-02-27] MEDS: Ascorbic Acid 500 mg Chewable Tablet PO SCH (08:34)
[2020-02-27] MEDS: Cholecalciferol 1,000 UNITS (25 MCG) TAB PO SCH (08:35)
[2020-02-27] MEDS: Insulin Glargine 18 UNITS in Pre-Filled Syringe 1 EACH SC SCH (08:35)
[2020-02-27] MEDS ORDERED: HumaLOG 300 UNITS/3 ML VIAL SC SCH (09:15)
[2020-02-27] MEDS: HumaLOG 300 UNITS/3 ML VIAL SC PRN (11:40)
[2020-02-27 18:06] VITALS: BP 127/67; TEMP 98.7
--- NOTE | 2020-02-28 00:45 | DIS ---
DATE OF ADMISSION: 02/24/2020 DATE OF DISCHARGE: 02/27/2020 DISCHARGE DIAGNOSES: As of the followin. Acute hypoxic respiratory failure. 2. COVID pneumonia. 3. End-stage renal disease, on dialysis. 4. Diabetes. 5. Morbid obesity. HOSPITAL COURSE: Patient is a 54-year-old male, who was recently discharged from the hospital at [facility] for COVID pneumonia, comes back in with shortness of breath. At this time, he was noted to be hypoxic. He was put on oxygen. He did have a CT that indicated worsening COVID infiltrates. Here in the hospital, he was briefly on oxygen, however, then was transitioned off the oxygen. He was ambulated and he did require oxygen on discharge. Initially, he was started on some antibiotics and cough medications were added. Dialysis was continued. Patient stated that he felt better. He had inflammatory markers checked. His markers indicated initially 16, however, then follow that was 6. He continued to improve throughout the hospital stay. He will be discharged home. He will follow up with his Primary. He was asked to eat a low-sugar diet and to continue taking his home medications. His home medications will be: 1. Omnicef 300 mg every other day. 2. Decadron 6 mg daily for a total of 10 days. 3. Flomax 0.4 daily. 4. Glipizide 1 b.i.d. 5. Stool softeners as needed. 6. Sevelamer two tabs t.i.d. 7. Magnesium 200 mg daily. 8. Multivitamin one p.o. daily. 9. Vascepa two tabs b.i.d. 10. Levemir units b.i.d. 11. Neurontin 1 daily. 12. Furosemide 40 mg daily. 13. Allopurinol 100 mg daily. 14. Atorvastatin 40 mg daily. 15. Aspirin 81 mg daily. 16. Tessalon 100 mg t.i.d. p.r.n. 17. Fluticasone as needed. 18. Colace as needed. 19. He is also on his Mavyret 100-40 mg daily. PHYSICAL EXAMINATION: VITAL SIGNS: On discharge, temperature of 98.3, 94, 18, 95% on 2 L, and 152/72. GENERAL: He is awake, alert, and oriented x3, in no apparent distress. CV: S1, S2 present. No murmurs, rubs, or gallops. DISPOSITION: Again, he will be discharged home. He will follow up with his Primary. Job ID: [id number]
--- NOTE | 2020-02-28 17:10 | EKG ---
Test Reason : SOB Blood Pressure : / mmHG Vent. Rate : 108 BPM Atrial Rate : 108 BPM P-R Int : 138 ms QRS Dur : 088 ms QT Int : 354 ms P-R-T Axes : 038 040 154 degrees QTc Int : 474 ms Sinus tachycardia Nonspecific T wave abnormality Abnormal ECG Confirmed by SOFIA STATON DO ([id number]), proposal editor ANDREW CABALLERO ([id number]) on 02/28/2020 5:10:19 PM Referred By: BRIONNA Confirmed By:SOFIA STATON DO
== END 2020-02-27 18:18 | disposition home or self-care (01) | DRG 177 ==
LOC: ERS 11:24 → ERHOLD 16:26 → 2SW 22:51
PROVIDERS: ADMIT Internal Medicine; ATTEND Internal Medicine
PROC: 5A1D70Z Performance of Urinary Filtration, Intermittent, Less than 6 Hours Per Day (ICD-10-PCS; principal; 2020-02-25)
PROC: 5A1D70Z Performance of Urinary Filtration, Intermittent, Less than 6 Hours Per Day (ICD-10-PCS; 2020-02-27)
DX: U07.1 COVID-19 (principal); N18.6 End stage renal disease; J12.89 Other viral pneumonia; J96.01 Acute respiratory failure with hypoxia; I13.2 Hypertensive heart and chronic kidney disease with heart failure and with stage 5 chronic kidney disease, or end stage renal disease; Z68.41 Body mass index [BMI] 40.0-44.9, adult; I25.10 Atherosclerotic heart disease of native coronary artery without angina pectoris; E11.22 Type 2 diabetes mellitus with diabetic chronic kidney disease; G89.29 Other chronic pain; M54.9 Dorsalgia, unspecified; E78.5 Hyperlipidemia, unspecified; E78.00 Pure hypercholesterolemia, unspecified; J44.9 Chronic obstructive pulmonary disease, unspecified; Z87.891 Personal history of nicotine dependence; Z99.2 Dependence on renal dialysis; Z79.899 Other long term (current) drug therapy; Z79.51 Long term (current) use of inhaled steroids; Z79.82 Long term (current) use of aspirin; D64.9 Anemia, unspecified; E66.01 Morbid (severe) obesity due to excess calories; Z98.49 Cataract extraction status, unspecified eye
CPT/HCPCS: 36415; 36416; 71045; 71275; 80048; 80053; 82553; 82728; 83605; 83880; 84484; 85025; 85379; 85610; 86140; 87040; 87340; 90935; 93005; 94760; 96365; 96367; 96375; G0257; J0456; J0696; J1100; J1644; J1815; J3490; J7050; Q9967

== ENCOUNTER 2020-07-05 11:49 | Inpatient (IN) | payer MEDICARE, MEDICAID ==
[2020-07-05 13:45] LABS: Anion Gap 26 mmol/L (10-20); BUN (Urea Nitrogen) 79 mg/dL (8.4-25.7); Calc. Creatinine Clearance 0 mL/min (70-130); Calcium 7.9 mg/dL (7.8-10.44); Carbon Dioxide 23 mmol/L (22-29); Chloride 101 mmol/L (98-107); Glucose 145 mg/dL (70-105); Potassium 6.5 mmol/L (3.5-5.1); Sodium 143 mmol/L (136-145)
[2020-07-05] MEDS: Piperacillin/Tazobactam 3.375 GM in Sodium Chloride 0.9% 100 ML IVPB SCH ×2 (15:24→21:58)
[2020-07-05] MEDS: Heparin 5,000 UNITS/ML VIAL SC SCH ×2 (15:25→21:59)
[2020-07-05 15:42] VITALS: BMI 45.9
[2020-07-05 15:48] LABS: SARS-CoV-2 NAA Rapid Test Not Detected (NotDetected)
[2020-07-05] MEDS ORDERED: HYDROcodone/Acetaminophen 10/325 mg Tablet PO PRN (20:25)
[2020-07-05] MEDS ORDERED: Dextrose 5% in Water 1,000 ML IV PRN (20:27)
[2020-07-05] MEDS ORDERED: HumaLOG 300 UNITS/3 ML VIAL SC PRN (20:27)
[2020-07-05] MEDS ORDERED: Dextrose 50% Abboject 50 ML SYRINGE SLOW IVP PRN (20:27)
[2020-07-05] MEDS ORDERED: hydrALAZINE 20 MG/ML VIAL SLOW IVP PRN (20:27)
[2020-07-05] MEDS ORDERED: Sevelamer Carbonate 800 MG TAB PO PRN (20:38)
[2020-07-05] MEDS: Atorvastatin Calcium 40 MG TAB PO SCH (21:59)
[2020-07-05] MEDS: hydrALAZINE 25 MG TAB PO SCH (22:00)
[2020-07-06] MEDS: Acetaminophen 500 MG TAB PO SCH ×4 (00:22→17:11)
[2020-07-06 04:03] LABS: #Lymphocytes 1.6 thou/uL (1.20-3.40); #Monocytes 0.5 thou/uL (0.11-0.59); #Neutrophils 6.3 thou/uL (1.40-6.50); %Basophils 0.1 % (0.0-1.0); %Lymphocytes 18.7 % (21.0-51.0); %Monocytes 5.9 % (0.0-10.0); %Neutrophils 75.2 % (42.0-75.0); Hemoglobin 8.7 g/dL (14.0-18.0); Mean Corpuscular HGB CONC 32.2 g/dL (32.0-36.0); Mean Corpuscular Hemoglobin 31.9 pg (27.0-31.0); Mean Corpuscular Volume 99.2 fL (78.0-98.0); Mean Platelet Volume 7.3 fL (7.4-10.4); Platelet Count 318 thou/uL (130-400); RBC Distribution Width 14.2 % (11.5-14.5); Red Blood Cell (RBC) Count 2.73 mill/uL (4.70-6.10); White Blood Cell (WBC) Count 8.4 thou/uL (4.8-10.8)
[2020-07-06 04:20] LABS: Anion Gap 17 mmol/L (10-20); BUN (Urea Nitrogen) 47 mg/dL (8.4-25.7); Calc. Creatinine Clearance 15 mL/min (70-130); Calcium 7.9 mg/dL (7.8-10.44); Carbon Dioxide 31 mmol/L (22-29); Chloride 96 mmol/L (98-107); Glucose 226 mg/dL (70-105); Potassium 4.7 mmol/L (3.5-5.1); Sodium 139 mmol/L (136-145)
[2020-07-06] MEDS: HumaLOG 300 UNITS/3 ML VIAL SC PRN (05:31)
[2020-07-06] MEDS: Piperacillin/Tazobactam 3.375 GM in Sodium Chloride 0.9% 100 ML IVPB SCH ×3 (05:32→21:28)
[2020-07-06] MEDS: Mometasone 200 MCG/Formoterol 5 MCG 120 PUFF INHALER INH SCH ×2 (08:20→18:23)
[2020-07-06] MEDS: Docusate 100 MG CAP PO SCH (08:49)
[2020-07-06] MEDS: Senokot S 8.6-50 MG TAB PO SCH (08:49)
[2020-07-06] MEDS: Fenofibrate Nanocrystallized 145 MG TAB PO SCH (08:49)
[2020-07-06] MEDS: Sevelamer Carbonate 800 MG TAB PO SCH ×3 (08:49→17:11)
[2020-07-06] MEDS: hydrALAZINE 25 MG TAB PO SCH ×4 (08:49→20:38)
[2020-07-06] MEDS: Multivitamin W/ Minerals 1 TAB PO SCH (08:49)
[2020-07-06] MEDS: Allopurinol 100 MG TAB PO SCH (08:50)
[2020-07-06] MEDS: Icosapent Ethyl 1 GM CAPSULE PO SCH ×2 (08:50→17:11)
[2020-07-06] MEDS: Aspirin 81 mg Enteric Coated Tablet PO SCH (08:50)
[2020-07-06] MEDS: Gabapentin 300 MG CAP PO SCH (08:50)
[2020-07-06] MEDS: Furosemide 40 MG TAB PO SCH (08:50)
[2020-07-06] MEDS: Magnesium Oxide 400 MG TAB PO SCH (08:50)
[2020-07-06] MEDS: Heparin 5,000 UNITS/ML VIAL SC SCH ×3 (08:53→20:38)
[2020-07-06] MEDS ORDERED: EPOETIN ALFA-EPBX (ESRD) 3,000 UNIT/ML VIAL IVP SCH (14:00)
[2020-07-06] MEDS ORDERED: EPOETIN ALFA-EPBX (ESRD) 2,000 UNIT/ML VIAL IVP SCH (14:00)
[2020-07-06] MEDS: Atorvastatin Calcium 40 MG TAB PO SCH (20:38)
[2020-07-07] MEDS: Acetaminophen 500 MG TAB PO SCH ×3 (00:02→12:55)
[2020-07-07 04:11] LABS: #Basophils 0.1 thou/uL (0.0-0.2); #Eosinphils 0.1 thou/uL (0.0-0.7); #Lymphocytes 2.7 thou/uL (1.20-3.40); #Monocytes 0.7 thou/uL (0.11-0.59); #Neutrophils 3.8 thou/uL (1.40-6.50); %Basophils 0.8 % (0.0-1.0); %Eosinophils 0.8 % (0.0-10.0); %Lymphocytes 36.7 % (21.0-51.0); %Monocytes 9.3 % (0.0-10.0); %Neutrophils 52.3 % (42.0-75.0); Hemoglobin 9.2 g/dL (14.0-18.0); Mean Corpuscular HGB CONC 32.2 g/dL (32.0-36.0); Mean Corpuscular Hemoglobin 31.8 pg (27.0-31.0); Mean Corpuscular Volume 98.6 fL (78.0-98.0); Mean Platelet Volume 7.3 fL (7.4-10.4); Platelet Count 334 thou/uL (130-400); RBC Distribution Width 13.9 % (11.5-14.5); Red Blood Cell (RBC) Count 2.89 mill/uL (4.70-6.10); White Blood Cell (WBC) Count 7.3 thou/uL (4.8-10.8)
[2020-07-07 04:26] LABS: Anion Gap 16 mmol/L (10-20); BUN (Urea Nitrogen) 38 mg/dL (8.4-25.7); Calc. Creatinine Clearance 19 mL/min (70-130); Calcium 8.1 mg/dL (7.8-10.44); Carbon Dioxide 29 mmol/L (22-29); Chloride 96 mmol/L (98-107); Glucose 161 mg/dL (70-105); Sodium 137 mmol/L (136-145)
[2020-07-07] MEDS: Multivitamin W/ Minerals 1 TAB PO SCH (08:03)
[2020-07-07] MEDS: hydrALAZINE 25 MG TAB PO SCH (08:03)
[2020-07-07] MEDS: Sevelamer Carbonate 800 MG TAB PO SCH ×3 (08:03→17:15)
[2020-07-07] MEDS: Allopurinol 100 MG TAB PO SCH (08:04)
[2020-07-07] MEDS: Fenofibrate Nanocrystallized 145 MG TAB PO SCH (08:04)
[2020-07-07] MEDS: Docusate 100 MG CAP PO SCH (08:04)
[2020-07-07] MEDS: Icosapent Ethyl 1 GM CAPSULE PO SCH ×2 (08:05→17:15)
[2020-07-07] MEDS: Furosemide 40 MG TAB PO SCH (08:05)
[2020-07-07] MEDS: Aspirin 81 mg Enteric Coated Tablet PO SCH (08:05)
[2020-07-07] MEDS: Gabapentin 300 MG CAP PO SCH (08:06)
[2020-07-07] MEDS: Heparin 5,000 UNITS/ML VIAL SC SCH ×2 (08:06→14:54)
[2020-07-07] MEDS: Magnesium Oxide 400 MG TAB PO SCH (08:06)
[2020-07-07] MEDS: Senokot S 8.6-50 MG TAB PO SCH (08:07)
[2020-07-07] MEDS: Mometasone 200 MCG/Formoterol 5 MCG 120 PUFF INHALER INH SCH ×2 (08:31→08:32)
[2020-07-07 11:25] VITALS: TEMP 97.9
[2020-07-07] MEDS ORDERED: hydrALAZINE 25 MG TAB PO SCH ×2 (12:00→15:00)
[2020-07-07] MEDS ORDERED: Amlodipine 5 MG TAB PO SCH (12:00)
[2020-07-07 12:45] VITALS: BP 190/103
[2020-07-07] MEDS: HumaLOG 300 UNITS/3 ML VIAL SC PRN (17:15)
[2020-07-08] MEDS ORDERED: Amlodipine 5 MG TAB PO SCH (09:00)
== END 2020-07-07 17:31 | disposition home health service (06) | DRG 640 ==
LOC: ERS 11:49 → IMCU/EMU 13:03
PROVIDERS: ADMIT Internal Medicine; ATTEND Internal Medicine
PROC: 5A09357 Assistance with Respiratory Ventilation, Less than 24 Consecutive Hours, Continuous Positive Airway Pressure (ICD-10-PCS; principal; 2020-07-05)
PROC: 5A1D70Z Performance of Urinary Filtration, Intermittent, Less than 6 Hours Per Day (ICD-10-PCS; 2020-07-06)
DX: E87.70 Fluid overload, unspecified (principal); N18.6 End stage renal disease; J96.21 Acute and chronic respiratory failure with hypoxia; Z20.822 Contact with and (suspected) exposure to COVID-19; I13.2 Hypertensive heart and chronic kidney disease with heart failure and with stage 5 chronic kidney disease, or end stage renal disease; I50.32 Chronic diastolic (congestive) heart failure; E66.01 Morbid (severe) obesity due to excess calories; E11.22 Type 2 diabetes mellitus with diabetic chronic kidney disease; D63.1 Anemia in chronic kidney disease; I25.10 Atherosclerotic heart disease of native coronary artery without angina pectoris; J44.9 Chronic obstructive pulmonary disease, unspecified; E78.5 Hyperlipidemia, unspecified; I15.0 Renovascular hypertension; E87.5 Hyperkalemia; T23.021A Burn of unspecified degree of single right finger (nail) except thumb, initial encounter; G47.33 Obstructive sleep apnea (adult) (pediatric); Z68.41 Body mass index [BMI] 40.0-44.9, adult; Z99.2 Dependence on renal dialysis; Z87.891 Personal history of nicotine dependence; Z79.82 Long term (current) use of aspirin; Z79.4 Long term (current) use of insulin; Z79.51 Long term (current) use of inhaled steroids; Z79.899 Other long term (current) drug therapy
CPT/HCPCS: 36415; 36416; 71046; 80048; 83605; 84145; 85025; 90935; 94660; 94760; G0257; J0360; J1644; J1815; J2543; J3490; Q5105; U0002

== ENCOUNTER 2020-09-09 14:07 | Outpatient (CLI) | payer MEDICARE, MEDICAID ==
[2020-09-09 16:07] LABS: Hemoglobin 10.3 g/dL (13.5-17.5); Mean Corpuscular HGB CONC 30.9 g/dL (32.0-36.0); Mean Corpuscular Hemoglobin 32.1 pg (27.0-33.0); Mean Corpuscular Volume 103.7 fl (81.2-95.1); Mean Platelet Volume 9.9 fl (7.4-10.4); Platelet Count 287 10x3/uL (150-450); Red Blood Cell (RBC) Count 3.21 10x6/uL (4.32-5.72); White Blood Cell (WBC) Count 7.7 10x3/uL (3.5-10.5)
[2020-09-09 16:25] LABS: Anion Gap 19 mmol/L (10-20); BUN (Urea Nitrogen) 54 mg/dL (8.4-25.7); Calc. Creatinine Clearance 0 mL/min (70-130); Calcium 8.7 mg/dL (7.8-10.44); Carbon Dioxide 30 mmol/L (22-29); Chloride 93 mmol/L (98-107); Glucose 283 mg/dL (70-105); Potassium 4.7 mmol/L (3.5-5.1); Sodium 137 mmol/L (136-145)
[2020-09-10 13:03] LABS: SARS-CoV-2 PCR by NAA Not Detected (NotDetected)
== END 2020-09-09 14:08 | disposition home or self-care (01) ==
LOC: LABBT 14:07
PROVIDERS: ATTEND Surgery Surgery of the Hand
DX: Z01.818 Encounter for other preprocedural examination (principal); M86.9 Osteomyelitis, unspecified; Z20.822 Contact with and (suspected) exposure to COVID-19
CPT/HCPCS: 80048; 85027; 93005; U0003; U0005; 93010

== ENCOUNTER 2020-09-14 10:50 | Day surgery (SDC) | payer MEDICARE, MEDICAID ==
[2020-09-13 14:52] VITALS: BMI 45.1
[2020-09-14] MEDS ORDERED: Fentanyl 100 MCG/2 ML VIAL ONE (13:26)
[2020-09-14] MEDS ORDERED: Lidocaine 1% w/Epinephrine 1:100K 20 ML VIAL ONE (13:27)
[2020-09-14] MEDS ORDERED: Bupivacaine 0.25% HCL 30 ML VIAL ONE (13:27)
[2020-09-14] MEDS ORDERED: Lidocaine 1% (PF) 30 ML VIAL ONE (13:38)
[2020-09-14] MEDS ORDERED: PROPOFOL 200 MG/20 ML VIAL ONE (13:40)
[2020-09-14] MEDS ORDERED: Lidocaine 1% PF 5 ML VIAL ONE (13:40)
== END 2020-09-14 15:00 | disposition home or self-care (01) ==
LOC: SDC 10:50
PROVIDERS: ATTEND Surgery Surgery of the Hand
PROC: 0X6N0Z3 Detachment at Right Index Finger, Low, Open Approach (ICD-10-PCS; principal; 2020-09-14)
DX: M87.24 Osteonecrosis due to previous trauma, hand and fingers (principal); E11.69 Type 2 diabetes mellitus with other specified complication; M86.641 Other chronic osteomyelitis, right hand; T23.32 Burn of third degree of single finger (nail) except thumb; I51.9 Heart disease, unspecified; M19.90 Unspecified osteoarthritis, unspecified site; G47.30 Sleep apnea, unspecified; Z79.82 Long term (current) use of aspirin; Z79.84 Long term (current) use of oral hypoglycemic drugs; Z79.899 Other long term (current) drug therapy; X08.8XXS Exposure to other specified smoke, fire and flames, sequela
CPT/HCPCS: 36416; 88305; 88311; J0690; J2001; J2704; J3010; S0020

== ENCOUNTER 2020-11-16 10:11 | Day surgery (SDC) | payer MEDICARE, MEDICAID ==
[2020-11-12 11:17] VITALS: BMI 44.2
[2020-11-16] MEDS ORDERED: Lidocaine 1% (PF) 30 ML VIAL ONE (11:47)
[2020-11-16] MEDS ORDERED: EPINEPHrine 1 MG/ML AMP ONE (11:47)
[2020-11-16] MEDS ORDERED: Bupivacaine 0.25% HCL 30 ML VIAL ONE (11:47)
== END 2020-11-16 13:32 | disposition home or self-care (01) ==
LOC: SDC 10:11
PROVIDERS: ATTEND Surgery Surgery of the Hand
PROC: 0X6N0Z1 Detachment at Right Index Finger, High, Open Approach (ICD-10-PCS; principal; 2020-11-16)
DX: M86.141 Other acute osteomyelitis, right hand (principal); E11.69 Type 2 diabetes mellitus with other specified complication; M86.641 Other chronic osteomyelitis, right hand; T23.321D Burn of third degree of single right finger (nail) except thumb, subsequent encounter; E11.51 Type 2 diabetes mellitus with diabetic peripheral angiopathy without gangrene; I51.9 Heart disease, unspecified; M19.90 Unspecified osteoarthritis, unspecified site; G47.30 Sleep apnea, unspecified; E11.22 Type 2 diabetes mellitus with diabetic chronic kidney disease; N18.9 Chronic kidney disease, unspecified; Z79.4 Long term (current) use of insulin; Z79.82 Long term (current) use of aspirin; Z79.899 Other long term (current) drug therapy; Z98.1 Arthrodesis status; Z99.2 Dependence on renal dialysis
CPT/HCPCS: 36416; J0171; J0690; J2001; S0020

== ENCOUNTER 2020-12-22 13:12 | Observation (INO) | payer MEDICARE, MEDICAID ==
[2020-12-22 13:49] LABS: #Basophils 0.1 thou/uL (0.0-0.2); #Eosinphils 0.1 thou/uL (0.0-0.7); #Lymphocytes 2.3 thou/uL (1.20-3.40); #Monocytes 0.5 thou/uL (0.11-0.59); #Neutrophils 4.3 thou/uL (1.40-6.50); %Basophils 1.4 % (0.0-1.0); %Eosinophils 1.7 % (0.0-10.0); %Lymphocytes 31.1 % (21.0-51.0); %Monocytes 7.3 % (0.0-10.0); %Neutrophils 58.5 % (42.0-75.0); Mean Corpuscular HGB CONC 32.9 g/dL (32.0-36.0); Mean Corpuscular Hemoglobin 33.9 pg (27.0-31.0); Mean Platelet Volume 7.2 fL (7.4-10.4); Platelet Count 265 thou/uL (130-400); RBC Distribution Width 12.8 % (11.5-14.5); Red Blood Cell (RBC) Count 3.54 mill/uL (4.70-6.10); White Blood Cell (WBC) Count 7.3 thou/uL (4.8-10.8)
[2020-12-22] MEDS ORDERED: Nitroglycerin 2% Ointment 1 INCH/1 GM Packet ONE (13:49)
[2020-12-22] MEDS ORDERED: Nitroglycerin 0.4 MG TAB 1 EACH ONE (13:49)
[2020-12-22] MEDS ORDERED: Aspirin Chewable 81 MG TAB ONE (13:50)
[2020-12-22 14:20] LABS: ALT (SGPT) 19 U/L (8-55); AST (SGOT) 28 U/L (5-34); Albumin 4.3 g/dL (3.5-5.0); Alkaline Phosphatase 73 U/L (40-110); Anion Gap 16 mmol/L (10-20); BUN (Urea Nitrogen) 30 mg/dL (8.4-25.7); Bilirubin, Total 0.5 mg/dL (0.2-1.2); Calc. Creatinine Clearance 0 mL/min (70-130); Calcium 9.2 mg/dL (7.8-10.44); Carbon Dioxide 31 mmol/L (22-29); Chloride 94 mmol/L (98-107); Globulin 3.6 g/dL (2.4-3.5); Glucose 165 mg/dL (70-105); Potassium 4.3 mmol/L (3.5-5.1); Protein, Total 7.9 g/dL (6.0-8.3); Sodium 137 mmol/L (136-145)
[2020-12-22] MEDS ORDERED: Aspirin 325 MG TAB PO SCH (17:00)
[2020-12-22] MEDS ORDERED: Amlodipine 5 MG TAB PO SCH (17:00)
[2020-12-22] MEDS ORDERED: hydrALAZINE 20 MG/ML VIAL ONE (17:06)
[2020-12-22] MEDS ORDERED: Amlodipine 5 MG TAB ONE (17:06)
[2020-12-22 18:31] LABS: CKMB 13.8 ng/mL (0-6.6); Critical Call CKMB RESULT DECREASING
[2020-12-22] MEDS: hydrALAZINE 20 MG/ML VIAL SLOW IVP PRN (20:20)
[2020-12-22] MEDS ORDERED: Atorvastatin Calcium 40 MG TAB PO SCH (21:00)
[2020-12-22] MEDS ORDERED: Morphine 2 MG/ML VIAL SLOW IVP PRN (21:01)
[2020-12-22 23:23] VITALS: BMI 38.7
[2020-12-22] MEDS: Nitroglycerin 2% Ointment 1 INCH/1 GM Packet TOP SCH (23:38)
[2020-12-23 03:50] LABS: Cardiac Risk 4.3 (Less than 4.5)
[2020-12-23] MEDS: Nitroglycerin 2% Ointment 1 INCH/1 GM Packet TOP SCH ×2 (07:16→13:43)
[2020-12-23] MEDS ORDERED: Aspirin Chewable 81 MG TAB PO SCH (09:00)
[2020-12-23] MEDS ORDERED: Amlodipine 5 MG TAB PO SCH (09:00)
[2020-12-23] MEDS ORDERED: Non-Formulary Item 1 EACH (Nifedipine [Nifedipine Er] 60 MG Tablet.Er) PO SCH (11:51)
[2020-12-23] MEDS ORDERED: Sodium Chloride 0.9% 1,000 ML IV SCH (12:00)
[2020-12-23 12:04] LABS: SARS-CoV-2 PCR by NAA Not Detected (NotDetected)
[2020-12-23 12:34] LABS: Anion Gap 17 mmol/L (10-20); BUN (Urea Nitrogen) 38 mg/dL (8.4-25.7); Calc. Creatinine Clearance 12 mL/min (70-130); Calcium 8.8 mg/dL (7.8-10.44); Carbon Dioxide 29 mmol/L (22-29); Chloride 96 mmol/L (98-107); Glucose 108 mg/dL (70-105); Potassium 5.3 mmol/L (3.5-5.1); Sodium 137 mmol/L (136-145)
[2020-12-23] MEDS: hydrALAZINE 20 MG/ML VIAL SLOW IVP PRN (16:17)
[2020-12-23] MEDS ORDERED: NIFEdipine XL 60 MG TAB PO SCH ×2 (16:38→21:00)
[2020-12-23] MEDS ORDERED: Carvedilol 3.125 MG TAB PO SCH (17:00)
[2020-12-23 17:30] VITALS: BP 204/103; TEMP 98.2
[2020-12-23] MEDS ORDERED: Tamsulosin HCl 0.4 MG CAP PO SCH (21:00)
[2020-12-23] MEDS ORDERED: hydrALAZINE 25 MG TAB PO SCH (21:00)
[2020-12-25] MEDS ORDERED: Prevnar 13-Val Conj/PF 0.5 ML SYRINGE IM ONE (21:00)
[2020-12-26 15:46] LABS: ANA Symphony (Qualitative) Negative (Negative); ANA Symphony (Quantitative) 0.1 Ratio (< 0.7 Negative); dsDNA IgG Antibody 0.6 IU/mL (<10 Negative)
== END 2020-12-23 19:00 | disposition home or self-care (01) ==
LOC: ERS 13:12 → ERHOLD 15:31 → INTOOBSV 15:31 → 2NO 22:29
PROVIDERS: ADMIT Internal Medicine; ATTEND Internal Medicine
DX: R07.2 Precordial pain (principal); M62.82 Rhabdomyolysis; E87.5 Hyperkalemia; E78.5 Hyperlipidemia, unspecified; J44.9 Chronic obstructive pulmonary disease, unspecified; I16.1 Hypertensive emergency; I13.0 Hypertensive heart and chronic kidney disease with heart failure and stage 1 through stage 4 chronic kidney disease, or unspecified chronic kidney disease; E11.22 Type 2 diabetes mellitus with diabetic chronic kidney disease; N18.6 End stage renal disease; I50.30 Unspecified diastolic (congestive) heart failure; D63.1 Anemia in chronic kidney disease; E78.00 Pure hypercholesterolemia, unspecified; G89.29 Other chronic pain; M54.9 Dorsalgia, unspecified; I07.1 Rheumatic tricuspid insufficiency; I25.10 Atherosclerotic heart disease of native coronary artery without angina pectoris; E66.01 Morbid (severe) obesity due to excess calories; Z68.38 Body mass index [BMI] 38.0-38.9, adult; Z87.891 Personal history of nicotine dependence; Z79.82 Long term (current) use of aspirin; Z79.84 Long term (current) use of oral hypoglycemic drugs; Z79.899 Other long term (current) drug therapy; Z99.2 Dependence on renal dialysis; Z20.822 Contact with and (suspected) exposure to COVID-19
CPT/HCPCS: 36415; 71045; 80048; 80053; 80061; 82085; 82550; 82553; 83880; 84484; 85025; 86038; 86225; 93005; 93306; 94760; J0360; J7050; U0003; U0005

== ENCOUNTER 2022-01-17 07:18 | Outpatient (CLI) | payer OTHER, MEDICAID ==
[2022-01-17] MEDS ORDERED: Iopamidol 370 76% 100 ML VIAL ONE (13:34)
== END 2022-01-17 07:19 | disposition home or self-care (01) ==
LOC: BICCT 07:18
PROVIDERS: ATTEND Urology
DX: R31.0 Gross hematuria (principal); N20.0 Calculus of kidney; N28.1 Cyst of kidney, acquired; N28.89 Other specified disorders of kidney and ureter; K80.20 Calculus of gallbladder without cholecystitis without obstruction; Q63.2 Ectopic kidney
CPT/HCPCS: 74178; 82565; Q9967